=== PATIENT | female | born 1975 | race African-American/Black ===

== ENCOUNTER 2019-08-05 01:19 | Emergency (ER) | payer MEDICAID ==
[~2019-08-05] VITALS: Ht 167.6 cm; Wt 73.0 kg
[~2019-08-05 01:19] MED LIST: AMLO10TA80 MT; ASPI-1393 MT; HYDR200T35 PO; LISI-604 MT; LOSA25TA26 MT
[2019-08-05] MEDS ORDERED: ONDANSETRON HCL 4MG/2ML INJ IV STA (02:15)
[2019-08-05] MEDS ORDERED: VANCOMYCIN 1 G PREMIX 200 ML IV SCH (02:15)
[2019-08-05] MEDS ORDERED: MORPHINE SULFATE 4 MG/ML CPJ (NOT FOR IM USE) IV STA (02:15)
[2019-08-05] MEDS ORDERED: SODIUM CHLORIDE 0.9% 1000ML BAG (SEPSIS BOLUS) IV ONE (02:15)
[2019-08-05] MEDS ORDERED: PIPERACILLIN/TAZOBACTAM 3.375GM/50ML PREMIX IV SCH (02:15)
[2019-08-05 03:12] LABS: BASOPHILS % 0.3 % (0.0-2.0); EOSINOPHILS % 0.1 % (0.0-5.0); HEMATOCRIT. 31.8 % (36.0-48.0); HEMOGLOBIN. 10.1 g/dL (12.0-16.0); LYMPHOCYTES % 7.4 % (20.0-50.0); MEAN CORPUSCULAR HEMOGLOBIN 27.9 pg (28.0-32.0); MEAN CORPUSCULAR VOLUME 87.6 fL (81.0-99.0); MEAN PLATELET VOLUME 7.7 fl (7.4-10.4); MONOCYTES % 3.6 % (2.0-8.0); NEUTROPHILS % 88.6 % (40.0-76.0); PLATELET 453 x1000/uL (130-400); RED BLOOD CELL COUNT 3.63 mill/uL (4.2-5.4); RED CELL DISTRIBUTION WIDTH 19.4 % (11.6-14.6)
[2019-08-05 03:14] LABS: CHLORIDE 101 mEq/L (98-107)
[2019-08-05 03:15] LABS: PROTHROMBIN TIME 10.5 sec (9.6-11.0)
[2019-08-05 03:19] LABS: ETHANOL BLOOD < 10 mg/dL
[2019-08-05] MEDS ORDERED: DIPHENHYDRAMINE 50MG/ML VIAL IV ONE (03:30)
[2019-08-05 04:30] VITALS: BP 143/96
[2019-08-05 05:10] LABS: CLARITY URINE CLEAR (CLEAR); COLOR URINE YELLOW (YELLOW); KETONES URINE NEGATIVE (NEGATIVE); LEUKOCYTE ESTERASE URINE TRACE (NEGATIVE); NITRITE URINE POSITIVE (NEGATIVE); OCCULT BLOOD URINE TRACE (NEGATIVE); PH URINE 6.5 (4.5-8.0); PROTEIN URINE NEGATIVE (NEGATIVE); SPECIFIC GRAVITY URINE 1.016 (1.005-1.030)
[2019-08-05 05:21] LABS: *AMPHETAMINES SCREEN URINE NEGATIVE (NEGATIVE); *BARBITURATES SCREEN URINE NEGATIVE (NEGATIVE); CANNABINOID URINE SCREEN NEGATIVE (NEGATIVE); PHENCYCLIDINE URINE SCREEN NEGATIVE (NEGATIVE)
[2019-08-05 05:22] LABS: *BENZODIAZEPINES SCREEN URINE NEGATIVE (NEGATIVE); *COCAINE SCREEN URINE NEGATIVE (NEGATIVE); METHADONE URINE SCREEN NEGATIVE (NEGATIVE)
[2019-08-05 05:24] LABS: OPIATES URINE SCREEN PRESUMTIVE POSITIVE (NEGATIVE)
== END 2019-08-05 04:45 | disposition short-term general hospital (02) ==
LOC: ER 01:19
DX: M65.841 Other synovitis and tenosynovitis, right hand (principal); M32.9 Systemic lupus erythematosus, unspecified; Z98.890 Other specified postprocedural states; Z88.0 Allergy status to penicillin; Z88.2 Allergy status to sulfonamides; Z88.8 Allergy status to other drugs, medicaments and biological substances; Z79.899 Other long term (current) drug therapy; Z79.82 Long term (current) use of aspirin
CPT/HCPCS: 36415; 80053; 80305; 80320; 81003; 83605; 84145; 84484; 85025; 85610; 87040; 87077; 87086; 87186; 93005; 96365; 96366; 96375; 99285; J1200; J2270; J2405; J2543; J3370; J7030; Z7610; A4315; G0480

== ENCOUNTER 2021-03-21 01:41 | Inpatient (IN) | payer MEDICAID ==
[~2021-03-21] VITALS: Ht 162.6 cm; Wt 53.5 kg
[2021-03-21] VITALS (16 sets, daily range): BP systolic 91–130; BP diastolic 57–75
[~2021-03-21 01:41] MED LIST changes: -ASPI-1393 MT; +ASPI-1497 MT; -LISI-604 MT; +LISI20TA31 MT
[2021-03-21] MEDS ORDERED: DIATR MEGLU/DIATRIZOATE SOLN 30ML ONE (03:42)
[2021-03-21] MEDS ORDERED: SODIUM CHLORIDE 0.9% 1,000 ML IV ONE (04:45)
[2021-03-21] MEDS ORDERED: CEFTRIAXONE 1 G PREMIX 50 ML IV NR (05:00)
[2021-03-21 05:37] LABS: BASOPHILS % 0.4 % (0.0-2.0); EOSINOPHILS % 2.2 % (0.0-5.0); HEMOGLOBIN. 7.1 g/dL (12.0-16.0); LYMPHOCYTES % 21.3 % (20.0-50.0); MEAN CORPUSCULAR HEMOGLOBIN 26.6 pg (28.0-32.0); MEAN CORPUSCULAR VOLUME 89.6 fL (81.0-99.0); MEAN PLATELET VOLUME 6.8 fl (7.4-10.4); MONOCYTES % 2.4 % (2.0-8.0); NEUTROPHILS % 73.7 % (40.0-76.0); PLATELET 458 x1000/uL (130-400); RED BLOOD CELL COUNT 2.68 mill/uL (4.2-5.4)
[2021-03-21 05:45] LABS: CHLORIDE 103 mEq/L (98-107)
[2021-03-21 07:34] LABS: CLARITY URINE TURBID (CLEAR); COLOR URINE BROWN (YELLOW)
[2021-03-21 07:36] LABS: KETONES URINE NEGATIVE (NEGATIVE); PROTEIN URINE 3+ (NEGATIVE)
[2021-03-21 07:37] LABS: LEUKOCYTE ESTERASE URINE 3+ (NEGATIVE); NITRITE URINE NEGATIVE (NEGATIVE); OCCULT BLOOD URINE 3+ (NEGATIVE)
[2021-03-21] MEDS ORDERED: CLONIDINE 0.1MG TABLET PO PRN (09:00)
[2021-03-21] MEDS ORDERED: ONDANSETRON HCL 4MG/2ML INJ IV PRN (09:00)
[2021-03-21] MEDS ORDERED: SODIUM CHLORIDE 0.9% 500 ML IV NR (09:00)
[2021-03-21] MEDS ORDERED: IPRATROPIUM/ALBUTEROL 0.5-3(2.5)MG/3ML NEB HHN PRN (09:00)
[2021-03-21] MEDS ORDERED: ACETAMINOPHEN 650MG/20.3ML UDC GT PRN (09:00)
[2021-03-21] MEDS ORDERED: LEVOFLOXACIN 500MG PREMIX 100 ML IV NR (11:00)
[2021-03-21] MEDS ORDERED: NOREPINEPHRINE 32 MG in DEXT 5% WATER 218 ML IV PRN (13:30)
[2021-03-21] MEDS ORDERED: IBUP-2029 PO (19:40)
[2021-03-21] MEDS: MORPHINE SULFATE 2 MG/ML CPJ (NOT FOR IM USE) IV PRN (23:22)
[2021-03-21] MEDS ORDERED: NALOXONE HCL 0.4MG/ML VIAL IV PRN (23:30)
[2021-03-22] VITALS (46 sets, daily range): BP systolic 91–109; BP diastolic 46–73
[2021-03-22] MEDS: MORPHINE SULFATE 2 MG/ML CPJ (NOT FOR IM USE) IV PRN ×2 (03:04→10:57)
[2021-03-22 05:35] LABS: CHLORIDE 107 mEq/L (98-107)
[2021-03-22 05:37] LABS: BASOPHILS % 0.3 % (0.0-2.0); EOSINOPHILS % 3.4 % (0.0-5.0); LYMPHOCYTES % 21.1 % (20.0-50.0); MEAN CORPUSCULAR HEMOGLOBIN 26.8 pg (28.0-32.0); MEAN CORPUSCULAR VOLUME 86.6 fL (81.0-99.0); MEAN PLATELET VOLUME 6.8 fl (7.4-10.4); MONOCYTES % 2.5 % (2.0-8.0); NEUTROPHILS % 72.7 % (40.0-76.0); PLATELET 472 x1000/uL (130-400); RED BLOOD CELL COUNT 2.54 mill/uL (4.2-5.4)
[2021-03-22 05:43] LABS: LDL CHOLESTEROL 69 mg/dL (5-100)
[2021-03-22 05:44] LABS: HDL CHOLESTEROL 25 mg/dL (40-59)
[2021-03-22 07:00] LABS: HEMOGLOBIN. 6.8 g/dL (12.0-16.0)
[2021-03-22] MEDS ORDERED: LEVOFLOXACIN 250MG PREMIX 50 ML IV SCH (09:00)
[2021-03-22] MEDS: LEVOFLOXACIN 500MG PREMIX 100 ML IV SCH (12:29)
[2021-03-22] MEDS: HYDROCODONE/ACETAMINOPHEN 5/325MG TABLET PO PRN (15:51)
[2021-03-22 21:33] LABS: HEMATOCRIT 25.4 % (36.0-48.0); HEMOGLOBIN 7.9 g/dL (12.0-16.0); MEAN CORPUSCULAR HEMOGLOBIN 27.4 pg (28.0-32.0); MEAN CORPUSCULAR VOLUME 87.6 fL (81.0-99.0); PLATELET 463 x1000/uL (130-400); RED CELL DISTRIBUTION WIDTH 14.3 % (11.6-14.6)
[2021-03-23] VITALS (16 sets, daily range): BP systolic 89–119; BP diastolic 57–76
[2021-03-23] MEDS: HYDROCODONE/ACETAMINOPHEN 5/325MG TABLET PO PRN ×2 (01:30→17:55)
[2021-03-23 05:39] LABS: CHLORIDE 104 mEq/L (98-107)
[2021-03-23 05:46] LABS: BASOPHILS % 0.3 % (0.0-2.0); EOSINOPHILS % 3.2 % (0.0-5.0); HEMATOCRIT. 24.6 % (36.0-48.0); HEMOGLOBIN. 7.8 g/dL (12.0-16.0); LYMPHOCYTES % 23.6 % (20.0-50.0); MEAN CORPUSCULAR HEMOGLOBIN 27.8 pg (28.0-32.0); MEAN CORPUSCULAR VOLUME 87.7 fL (81.0-99.0); MEAN PLATELET VOLUME 6.9 fl (7.4-10.4); MONOCYTES % 3.2 % (2.0-8.0); NEUTROPHILS % 69.7 % (40.0-76.0); PLATELET 481 x1000/uL (130-400); RED BLOOD CELL COUNT 2.81 mill/uL (4.2-5.4); RED CELL DISTRIBUTION WIDTH 14.3 % (11.6-14.6)
[2021-03-23] MEDS: DIPHENHYDRAMINE 50MG/ML VIAL IV PRN (06:38)
[2021-03-23 08:45] LABS: TOTAL IRON BINDING CAPACITY 122 ug/dL (250-450)
[2021-03-23 09:22] LABS: FOLIC ACID (FOLATE) SERUM 4.5 ng/mL (>5.38)
[2021-03-23 10:11] LABS: CLARITY URINE CLOUDY (CLEAR); COLOR URINE YELLOW (YELLOW); KETONES URINE NEGATIVE (NEGATIVE); LEUKOCYTE ESTERASE URINE 3+ (NEGATIVE); NITRITE URINE NEGATIVE (NEGATIVE); OCCULT BLOOD URINE 3+ (NEGATIVE); PROTEIN URINE 1+ (NEGATIVE); SPECIFIC GRAVITY URINE 1.013 (1.005-1.030); UROBILINOGEN URINE 0.2 E.U./dL (0.2-1.0)
[2021-03-23] MEDS ORDERED: LIDOCAINE HCL 2%/EPINEPHRINE 1:100,000 20 ML VIAL INFIL SCH (13:00)
[2021-03-23] MEDS ORDERED: LIDOCAINE HCL 2%/EPINEPHRINE/PF 10 ML VIAL INFIL SCH (13:00)
[2021-03-23] MEDS: LEVOFLOXACIN 500MG PREMIX 100 ML IV SCH (13:11)
[2021-03-24] VITALS: BP 93/64
[2021-03-24] MEDS: DIPHENHYDRAMINE 50MG/ML VIAL IV PRN (00:18)
[2021-03-24] MEDS: HYDROCODONE/ACETAMINOPHEN 5/325MG TABLET PO PRN ×2 (00:19→13:40)
[2021-03-24 04:13] VITALS: BP 96/50
[2021-03-24 06:29] LABS: BASOPHILS % 0.3 % (0.0-2.0); EOSINOPHILS % 3.6 % (0.0-5.0); HEMATOCRIT. 25.5 % (36.0-48.0); LYMPHOCYTES % 29.4 % (20.0-50.0); MEAN CORPUSCULAR HEMOGLOBIN 27.4 pg (28.0-32.0); MEAN CORPUSCULAR VOLUME 87.3 fL (81.0-99.0); MEAN PLATELET VOLUME 6.7 fl (7.4-10.4); MONOCYTES % 2.7 % (2.0-8.0); PLATELET 472 x1000/uL (130-400); RED BLOOD CELL COUNT 2.92 mill/uL (4.2-5.4); RED CELL DISTRIBUTION WIDTH 14.6 % (11.6-14.6)
[2021-03-24 06:41] LABS: CHLORIDE 99 mEq/L (98-107)
[2021-03-24 08:00] VITALS: BP 97/67
[2021-03-24] MEDS ORDERED: ASCORBIC ACID 500 MG TABLET PO SCH (09:00)
[2021-03-24] MEDS ORDERED: ZINC SULFATE 220 MG ( 50 ) CAPSULE PO SCH (09:00)
[2021-03-24] MEDS ORDERED: FOLIC ACID 1MG TABLET PO SCH (09:45)
[2021-03-24] MEDS ORDERED: SODIUM CHLORIDE 0.9% 1,000 ML IV SCH (09:45)
[2021-03-24] MEDS ORDERED: LEVOFLOXACIN 500MG TABLET PO SCH (11:00)
[2021-03-24] MEDS ORDERED: POLYETHYLENE GLYCOL 3350 (17GM) 1 DOSE PACK PO SCH (11:15)
[2021-03-24] MEDS ORDERED: LEVO500T89 MT (11:32)
[2021-03-24] MEDS ORDERED: ZINC220C2 PO (11:32)
[2021-03-24] MEDS ORDERED: ASCO500T20 PO (11:32)
[2021-03-24] MEDS ORDERED: FOLI-43 PO (11:32)
[2021-03-24 12:00] VITALS: BP 96/69
[2021-03-24 14:54] VITALS: BP 93/60
== END 2021-03-24 17:00 | disposition home health service (06) | DRG 710 ==
LOC: ER 01:41 → MICUSO 05:45 → EDBEDREQ 06:07 → EDBEDREQTM 06:07 → MICUSO 14:34 → 5EST 03-23 06:14
PROVIDERS: ADMIT Internal Medicine; ATTEND Internal Medicine
PROC: 30233N1 Transfusion of Nonautologous Red Blood Cells into Peripheral Vein, Percutaneous Approach (ICD-10-PCS; 2021-03-22)
PROC: 0QB10ZZ Excision of Sacrum, Open Approach (ICD-10-PCS; principal; 2021-03-24)
PROC: 0JBM0ZZ Excision of Left Upper Leg Subcutaneous Tissue and Fascia, Open Approach (ICD-10-PCS; 2021-03-24)
PROC: 0QBS0ZZ Excision of Coccyx, Open Approach (ICD-10-PCS; 2021-03-24)
DX: A41.9 Sepsis, unspecified organism (principal); R65.21 Severe sepsis with septic shock; L89.154 Pressure ulcer of sacral region, stage 4; E43 Unspecified severe protein-calorie malnutrition; L89.223 Pressure ulcer of left hip, stage 3; D50.9 Iron deficiency anemia, unspecified; N39.0 Urinary tract infection, site not specified; I51.7 Cardiomegaly; Y73.8 Miscellaneous gastroenterology and urology devices associated with adverse incidents, not elsewhere classified; S80.212A Abrasion, left knee, initial encounter; X58.XXXA Exposure to other specified factors, initial encounter; K94.23 Gastrostomy malfunction; Z74.01 Bed confinement status; Z82.49 Family history of ischemic heart disease and other diseases of the circulatory system; Z88.0 Allergy status to penicillin; Z88.8 Allergy status to other drugs, medicaments and biological substances; Z79.899 Other long term (current) drug therapy; Y92.89 Other specified places as the place of occurrence of the external cause; Y93.89 Activity, other specified; Y99.8 Other external cause status; Z79.82 Long term (current) use of aspirin; Z88.2 Allergy status to sulfonamides
CPT/HCPCS: 36415; 71045; 74018; 80048; 80053; 80061; 81003; 82040; 82607; 82728; 82746; 83540; 83550; 83605; 84134; 84443; 85025; 85027; 85044; 86850; 86900; 86920; 93970; 99291; A6261; J0696; J1200; J1956; J2270; J3490; J7030; P9016; Q9963; A4315

== ENCOUNTER 2021-06-13 16:33 | Inpatient (IN) | payer MEDICAID ==
[~2021-06-13] VITALS: Ht 165.1 cm; Wt 47.6 kg
[~2021-06-13 16:33] MED LIST changes: -AMLO10TA80 MT; +ASCO500T20 PO; +FOLI-43 PO; +HYDR-4001 MT; -LISI20TA31 MT; -LOSA25TA26 MT; +OMEP40CA20 MT; +ZINC220C2 PO
[2021-06-13 17:54] LABS: BASOPHILS % 0.4 % (0.0-2.0); EOSINOPHILS % 1.6 % (0.0-5.0); HEMATOCRIT. 24.2 % (36.0-48.0); HEMOGLOBIN. 7.4 g/dL (12.0-16.0); LYMPHOCYTES % 27.4 % (20.0-50.0); MEAN CORPUSCULAR VOLUME 91.6 fL (81.0-99.0); MONOCYTES % 4.7 % (2.0-8.0); NEUTROPHILS % 65.9 % (40.0-76.0); PLATELET 369 x1000/uL (130-400); RED BLOOD CELL COUNT 2.64 mill/uL (4.2-5.4); RED CELL DISTRIBUTION WIDTH 15.2 % (11.6-14.6)
[2021-06-13 18:01] LABS: CHLORIDE 110 mEq/L (98-107)
[2021-06-13] MEDS ORDERED: IPRATROPIUM BROMIDE (0.02%) 0.5MG/2.5ML NEB HHN STA (18:04)
[2021-06-13] MEDS ORDERED: ALBUTEROL (0.083%) 2.5MG/3ML NEB HHN STA (18:04)
[2021-06-13] MEDS ORDERED: METHYLPREDNISOLONE SOD SUCC 125 MG/2 ML VIAL IV NR (18:04)
[2021-06-13 18:05] LABS: ETHANOL BLOOD < 10 mg/dL
[2021-06-13 20:49] LABS: INR 1.3; PROTHROMBIN TIME 13.5 sec (9.6-11.0)
[2021-06-13 20:51] LABS: CLARITY URINE CLOUDY (CLEAR); KETONES URINE NEGATIVE (NEGATIVE); LEUKOCYTE ESTERASE URINE 3+ (NEGATIVE); NITRITE URINE NEGATIVE (NEGATIVE); OCCULT BLOOD URINE 3+ (NEGATIVE); PROTEIN URINE 2+ (NEGATIVE); SPECIFIC GRAVITY URINE 1.012 (1.005-1.030); UROBILINOGEN URINE 0.2 E.U./dL (0.2-1.0)
[2021-06-13 21:01] LABS: COLOR URINE BLOODY (YELLOW)
[2021-06-13 21:18] LABS: *AMPHETAMINES SCREEN URINE NEGATIVE (NEGATIVE); *BARBITURATES SCREEN URINE NEGATIVE (NEGATIVE); *BENZODIAZEPINES SCREEN URINE NEGATIVE (NEGATIVE); *COCAINE SCREEN URINE NEGATIVE (NEGATIVE); CANNABINOID URINE SCREEN NEGATIVE (NEGATIVE); METHADONE URINE SCREEN NEGATIVE (NEGATIVE); OPIATES URINE SCREEN NEGATIVE (NEGATIVE); PHENCYCLIDINE URINE SCREEN NEGATIVE (NEGATIVE)
[2021-06-14 10:00] VITALS: BP 99/66
[2021-06-14] MEDS ORDERED: IBUP-2029 PO (10:56)
[2021-06-14] MEDS ORDERED: MULT-1146 MT (10:56)
[2021-06-14 12:00] VITALS: BP 99/69
[2021-06-14] MEDS ORDERED: ONDANSETRON HCL 4MG/2ML INJ IV PRN (14:15)
[2021-06-14] MEDS ORDERED: DOCUSATE SODIUM 100MG CAPSULE PO PRN (14:15)
[2021-06-14] MEDS ORDERED: ACETAMINOPHEN 325MG TABLET PO PRN (14:15)
[2021-06-14] MEDS ORDERED: CLONIDINE 0.1MG TABLET PO PRN (14:15)
[2021-06-14] MEDS ORDERED: MAGNESIUM/ALUMINUM HYDROXIDE/SIMETHICONE 30ML UDC PO PRN (14:15)
[2021-06-14] MEDS ORDERED: HYDROCODONE/ACETAMINOPHEN 5/325MG TABLET PO PRN (14:15)
[2021-06-14 16:00] VITALS: BP 101/67
[2021-06-14] MEDS: HYDROXYCHLOROQUINE SULFATE 200MG TABLET PO SCH (18:44)
[2021-06-14] MEDS: FOLIC ACID 1MG TABLET PO SCH (18:45)
[2021-06-14] MEDS: OMEPRAZOLE 20MG CAPSULE EXTENDED RELEASE PO SCH (18:45)
[2021-06-14] MEDS: ZINC SULFATE 220 MG ( 50 ) CAPSULE PO SCH (18:46)
[2021-06-14] MEDS: MULTIVITAMINS,THER W-MINERALS TABLET PO SCH (18:46)
[2021-06-14] MEDS: ASCORBIC ACID 500 MG TABLET PO SCH (18:47)
[2021-06-14 20:00] VITALS: BP 92/62
[2021-06-15] VITALS (10 sets, daily range): BP systolic 93–107; BP diastolic 61–71
[2021-06-15] MEDS: OMEPRAZOLE 20MG CAPSULE EXTENDED RELEASE PO SCH (06:46)
[2021-06-15 08:21] LABS: CHLORIDE 111 mEq/L (98-107)
[2021-06-15 08:24] LABS: BASOPHILS % 0.4 % (0.0-2.0); EOSINOPHILS % 1.1 % (0.0-5.0); HEMATOCRIT. 22.5 % (36.0-48.0); LYMPHOCYTES % 38.1 % (20.0-50.0); MONOCYTES % 6.3 % (2.0-8.0); NEUTROPHILS % 54.1 % (40.0-76.0); PLATELET 221 x1000/uL (130-400); RED BLOOD CELL COUNT 2.42 mill/uL (4.2-5.4)
[2021-06-15 08:26] LABS: HEMOGLOBIN. 6.8 g/dL (12.0-16.0)
[2021-06-15] MEDS: HYDROXYCHLOROQUINE SULFATE 200MG TABLET PO SCH (08:52)
[2021-06-15] MEDS: FOLIC ACID 1MG TABLET PO SCH (08:53)
[2021-06-15] MEDS: SODIUM CHLORIDE 0.9% 1,000 ML IV SCH (08:53)
[2021-06-15] MEDS: MULTIVITAMINS,THER W-MINERALS TABLET PO SCH (08:53)
[2021-06-15] MEDS: ASCORBIC ACID 500 MG TABLET PO SCH (08:53)
[2021-06-15] MEDS: ZINC SULFATE 220 MG ( 50 ) CAPSULE PO SCH (08:53)
[2021-06-15] MEDS ORDERED: MAGNESIUM 2 G PREMIX 50 ML IV NR (11:00)
[2021-06-15] MEDS: LEVOFLOXACIN 500MG TABLET PO SCH (12:31)
[2021-06-15] MEDS ORDERED: NALOXONE HCL 0.4MG/ML VIAL IV PRN (18:00)
[2021-06-15 21:15] LABS: HEMATOCRIT 24.4 % (36.0-48.0); HEMOGLOBIN 7.6 g/dL (12.0-16.0)
[2021-06-16] VITALS: BP 113/69
[2021-06-16 04:00] VITALS: BP 116/74
[2021-06-16] MEDS: SODIUM CHLORIDE 0.9% 1,000 ML IV SCH (06:15)
[2021-06-16] MEDS: OMEPRAZOLE 20MG CAPSULE EXTENDED RELEASE PO SCH (06:20)
[2021-06-16 07:20] LABS: CHLORIDE 108 mEq/L (98-107)
[2021-06-16 07:30] LABS: BASOPHILS % 0.4 % (0.0-2.0); EOSINOPHILS % 1.4 % (0.0-5.0); HEMATOCRIT. 24.5 % (36.0-48.0); LYMPHOCYTES % 28.9 % (20.0-50.0); MEAN CORPUSCULAR HEMOGLOBIN 28.7 pg (28.0-32.0); MEAN CORPUSCULAR VOLUME 88.3 fL (81.0-99.0); MEAN PLATELET VOLUME 7.9 fl (7.4-10.4); MONOCYTES % 4.6 % (2.0-8.0); NEUTROPHILS % 64.7 % (40.0-76.0); PLATELET 244 x1000/uL (130-400); RED BLOOD CELL COUNT 2.77 mill/uL (4.2-5.4); RED CELL DISTRIBUTION WIDTH 14.5 % (11.6-14.6)
[2021-06-16 08:00] VITALS: BP 116/68
[2021-06-16] MEDS: MULTIVITAMINS,THER W-MINERALS TABLET PO SCH (09:00)
[2021-06-16] MEDS: ASCORBIC ACID 500 MG TABLET PO SCH (09:28)
[2021-06-16] MEDS: ZINC SULFATE 220 MG ( 50 ) CAPSULE PO SCH (09:28)
[2021-06-16] MEDS: HYDROXYCHLOROQUINE SULFATE 200MG TABLET PO SCH (09:28)
[2021-06-16] MEDS: FOLIC ACID 1MG TABLET PO SCH (09:28)
[2021-06-16] MEDS ORDERED: LEVO500T89 PO (09:35)
[2021-06-16] MEDS: LEVOFLOXACIN 500MG TABLET PO SCH (11:30)
[2021-06-16 11:51] VITALS: BP 110/70
[2021-06-16 12:00] VITALS: BP 110/70
[2021-06-16] MEDS ORDERED: CEFTRIAXONE SODIUM 1 G/VIAL IV ONE (13:15)
[2021-06-16] MEDS ORDERED: CEFTRIAXONE 1,000 MG in DEXTROSE 5% WATER 50 ML IV SCH (15:00)
[2021-06-16 16:00] VITALS: BP 109/76
== END 2021-06-16 16:41 | disposition home health service (06) | DRG 466 ==
LOC: ER 16:33 → MICUSO 21:30 → EDBEDREQTM 21:44 → EDBEDREQ 21:44 → 6EST 06-14 07:42
PROVIDERS: ADMIT Internal Medicine; ATTEND Internal Medicine
PROC: 30233N1 Transfusion of Nonautologous Red Blood Cells into Peripheral Vein, Percutaneous Approach (ICD-10-PCS; principal; 2021-06-15)
DX: T83.021A Displacement of indwelling urethral catheter, initial encounter (principal); E43 Unspecified severe protein-calorie malnutrition; L89.154 Pressure ulcer of sacral region, stage 4; N13.6 Pyonephrosis; L89.893 Pressure ulcer of other site, stage 3; E83.41 Hypermagnesemia; D64.9 Anemia, unspecified; M06.9 Rheumatoid arthritis, unspecified; R31.0 Gross hematuria; N73.9 Female pelvic inflammatory disease, unspecified; Y83.8 Other surgical procedures as the cause of abnormal reaction of the patient, or of later complication, without mention of misadventure at the time of the procedure; Z74.01 Bed confinement status; Z88.0 Allergy status to penicillin; Z88.2 Allergy status to sulfonamides; Z88.8 Allergy status to other drugs, medicaments and biological substances; Z79.899 Other long term (current) drug therapy; Z68.1 Body mass index [BMI] 19.9 or less, adult; Y92.89 Other specified places as the place of occurrence of the external cause
CPT/HCPCS: 36415; 71045; 76770; 80048; 80053; 80076; 80305; 80320; 81003; 82040; 82962; 83735; 83880; 84100; 84134; 84484; 85014; 85018; 85025; 86850; 86900; 86920; 87077; 87186; 93005; 94640; 99285; J0696; J2930; J3475; J7030; J7040; J7060; P9016; G0480

== ENCOUNTER 2022-03-04 03:10 | Inpatient (IN) | payer MEDICAID ==
[~2022-03-04] VITALS: Ht 167.6 cm; Wt 60.3 kg
[~2022-03-04 03:10] MED LIST changes: +IBUP-2029 PO; +LEVO500T90 PO; +MULT-1146 MT
[2022-03-04] MEDS ORDERED: SODIUM CHLORIDE 0.9% 1000ML BAG (SEPSIS BOLUS) IV ONE (09:00)
[2022-03-04] MEDS ORDERED: LEVOFLOXACIN 750MG PREMIX 150 ML IV ONE (09:00)
[2022-03-04] MEDS ORDERED: METRONIDAZOLE 500 MG PREMIX 100 ML IV ONE (09:00)
[2022-03-04 10:00] LABS: BASOPHILS % 0.4 % (0.0-2.0); EOSINOPHILS % 1.7 % (0.0-5.0); HEMATOCRIT. 28.7 % (36.0-48.0); HEMOGLOBIN. 8.7 g/dL (12.0-16.0); LYMPHOCYTES % 21.4 % (20.0-50.0); MEAN CORPUSCULAR HEMOGLOBIN 28.3 pg (28.0-32.0); MEAN CORPUSCULAR VOLUME 93.4 fL (81.0-99.0); MEAN PLATELET VOLUME 7.2 fl (7.4-10.4); MONOCYTES % 3.1 % (2.0-8.0); NEUTROPHILS % 73.4 % (40.0-76.0); PLATELET 316 x1000/uL (130-400); RED BLOOD CELL COUNT 3.07 mill/uL (4.2-5.4); RED CELL DISTRIBUTION WIDTH 14.2 % (11.6-14.6)
[2022-03-04 10:06] LABS: PROTHROMBIN TIME 11.1 sec (9.6-11.0)
[2022-03-04 10:09] LABS: CHLORIDE 95 mEq/L (98-107)
[2022-03-04 12:08] LABS: CLARITY URINE TURBID (CLEAR); COLOR URINE DARK YELLOW (YELLOW); KETONES URINE NEGATIVE (NEGATIVE); LEUKOCYTE ESTERASE URINE 3+ (NEGATIVE); NITRITE URINE POSITIVE (NEGATIVE); OCCULT BLOOD URINE 1+ (NEGATIVE); PROTEIN URINE 1+ (NEGATIVE); SPECIFIC GRAVITY URINE 1.008 (1.005-1.030); UROBILINOGEN URINE 0.2 E.U./dL (0.2-1.0)
[2022-03-04] MEDS ORDERED: ONDANSETRON HCL 4MG/2ML INJ IV PRN (14:30)
[2022-03-04] MEDS ORDERED: KETOROLAC 30MG/ML VIAL IV PRN (14:30)
[2022-03-04 17:26] VITALS: BP 101/67
[2022-03-04 17:30] VITALS: BP 92/60
[2022-03-04 20:00] VITALS: BP 97/59
[2022-03-05] VITALS: BP 99/69
[2022-03-05 04:00] VITALS: BP 92/57
[2022-03-05 08:00] VITALS: BP 95/49
[2022-03-05] MEDS: LEVOFLOXACIN 500MG PREMIX 100 ML IV SCH (11:49)
[2022-03-05 12:00] VITALS: BP 108/71
[2022-03-05] MEDS: DIPHENHYDRAMINE 25MG CAPSULE PO PRN (14:39)
[2022-03-05 16:00] VITALS: BP 110/68
[2022-03-05 18:18] LABS: BASOPHILS % 0.2 % (0.0-2.0); EOSINOPHILS % 1.8 % (0.0-5.0); HEMATOCRIT. 25.8 % (36.0-48.0); HEMOGLOBIN. 8.1 g/dL (12.0-16.0); MEAN CORPUSCULAR HEMOGLOBIN 28.2 pg (28.0-32.0); MEAN CORPUSCULAR VOLUME 90.3 fL (81.0-99.0); MEAN PLATELET VOLUME 7.8 fl (7.4-10.4); MONOCYTES % 5.7 % (2.0-8.0); NEUTROPHILS % 71.3 % (40.0-76.0); PLATELET 284 x1000/uL (130-400); RED BLOOD CELL COUNT 2.85 mill/uL (4.2-5.4)
[2022-03-05 18:20] LABS: CHLORIDE 97 mEq/L (98-107)
[2022-03-05 20:00] VITALS: BP 111/73
[2022-03-06] VITALS: BP 114/78
[2022-03-06 04:00] VITALS: BP 118/76
[2022-03-06 08:00] VITALS: BP 107/68
[2022-03-06 12:00] VITALS: BP 111/66
[2022-03-06] MEDS: LEVOFLOXACIN 500MG PREMIX 100 ML IV SCH (12:38)
[2022-03-06 16:00] VITALS: BP 135/77
[2022-03-06] MEDS: DIPHENHYDRAMINE 25MG CAPSULE PO PRN (21:57)
[2022-03-07] VITALS: BP 107/74
[2022-03-07 04:00] VITALS: BP 111/67
[2022-03-07 12:00] VITALS: BP 104/67
[2022-03-07] MEDS ORDERED: LEVOFLOXACIN 500MG PREMIX 100 ML IV SCH (12:30)
[2022-03-07 16:00] VITALS: BP 102/62
[2022-03-07 20:00] VITALS: BP 106/67
[2022-03-07] MEDS ORDERED: LEVO500T90 MT (20:12)
[2022-03-08] VITALS: BP 104/68
[2022-03-08 04:00] VITALS: BP 111/60
[2022-03-08 08:09] VITALS: BP 115/71
[2022-03-08] MEDS ORDERED: LEVOFLOXACIN 500MG TABLET PO SCH (11:00)
[2022-03-08 11:01] VITALS: BP 115/71
[2022-03-08 12:00] VITALS: BP 106/71
== END 2022-03-08 21:14 | DRG 951 ==
LOC: ER 03:10 → 7WST 13:45 → EDBEDREQSVC 13:48 → EDBEDREQTM 13:48 → EDBEDREQ 13:48 → ENRESERV 15:22 → ER 16:46 → 7WST 03-08 19:57
PROVIDERS: ADMIT Internal Medicine; ATTEND Internal Medicine
PROC: 0KBP0ZZ Excision of Left Hip Muscle, Open Approach (ICD-10-PCS; principal; 2022-03-06)
PROC: 0KBN0ZZ Excision of Right Hip Muscle, Open Approach (ICD-10-PCS; 2022-03-06)
PROC: 0KBP0ZZ Excision of Left Hip Muscle, Open Approach (ICD-10-PCS; 2022-03-06)
DX: N39.0 Urinary tract infection, site not specified (principal); L89.154 Pressure ulcer of sacral region, stage 4; E43 Unspecified severe protein-calorie malnutrition; L89.324 Pressure ulcer of left buttock, stage 4; M32.9 Systemic lupus erythematosus, unspecified; E87.8 Other disorders of electrolyte and fluid balance, not elsewhere classified; M06.9 Rheumatoid arthritis, unspecified; E87.1 Hypo-osmolality and hyponatremia; Z74.01 Bed confinement status; Z82.49 Family history of ischemic heart disease and other diseases of the circulatory system; D64.9 Anemia, unspecified; Z68.21 Body mass index [BMI] 21.0-21.9, adult; Z88.0 Allergy status to penicillin; Z88.2 Allergy status to sulfonamides; Z88.8 Allergy status to other drugs, medicaments and biological substances; Z79.899 Other long term (current) drug therapy; Z79.82 Long term (current) use of aspirin; Z96.0 Presence of urogenital implants
CPT/HCPCS: 36415; 71045; 74176; 80048; 80053; 81003; 82040; 83605; 84134; 84145; 84484; 85025; 85384; 86850; 86900; 93005; 93970; 99285; C1893; J1885; J1956; J3490; J7030; Q0163

== ENCOUNTER 2022-06-11 03:01 | Inpatient (IN) | payer MEDICAID ==
[~2022-06-11] VITALS: Ht 162.6 cm; Wt 47.6 kg
[~2022-06-11 03:01] MED LIST changes: +LEVO-65 MT; +LEVO-65 PO; -LEVO500T90 PO
[2022-06-11] MEDS ORDERED: SODIUM CHLORIDE 0.9% 1,000 ML IV ONE (04:15)
[2022-06-11 05:27] LABS: BASOPHILS % 0.3 % (0.0-2.0); HEMATOCRIT. 30.9 % (36.0-48.0); HEMOGLOBIN. 9.6 g/dL (12.0-16.0); LYMPHOCYTES % 25.3 % (20.0-50.0); MEAN CORPUSCULAR VOLUME 93.5 fL (81.0-99.0); MEAN PLATELET VOLUME 7.3 fl (7.4-10.4); NEUTROPHILS % 66.4 % (40.0-76.0); PLATELET 373 x1000/uL (130-400); RED BLOOD CELL COUNT 3.31 mill/uL (4.2-5.4); RED CELL DISTRIBUTION WIDTH 14.1 % (11.6-14.6)
[2022-06-11] MEDS ORDERED: LEVOFLOXACIN 750MG PREMIX 150 ML IV ONE (05:30)
[2022-06-11 05:44] LABS: CHLORIDE 95 mEq/L (98-107)
[2022-06-11 05:50] LABS: HCG SCREEN NEGATIVE
[2022-06-11 05:50] LABS: CLARITY URINE TURBID (CLEAR); COLOR URINE RED (YELLOW); KETONES URINE NEGATIVE (NEGATIVE); LEUKOCYTE ESTERASE URINE 3+ (NEGATIVE); NITRITE URINE POSITIVE (NEGATIVE); OCCULT BLOOD URINE 3+ (NEGATIVE); PH URINE >=9.0 (4.5-8.0); PROTEIN URINE 3+ (NEGATIVE); SPECIFIC GRAVITY URINE 1.015 (1.005-1.030)
[2022-06-11] MEDS ORDERED: ONDANSETRON HCL 4MG/2ML INJ IV PRN (10:00)
[2022-06-11] MEDS ORDERED: CLONIDINE 0.1MG TABLET PO PRN (10:00)
[2022-06-11] MEDS ORDERED: IPRATROPIUM/ALBUTEROL 0.5-3(2.5)MG/3ML NEB HHN PRN (10:00)
[2022-06-11] MEDS ORDERED: ACETAMINOPHEN 325MG TABLET PO PRN (10:00)
[2022-06-11 12:00] VITALS: BP 92/61
[2022-06-11 14:00] VITALS: BP 92/61
[2022-06-11 16:00] VITALS: BP 101/65
[2022-06-11 16:27] LABS: TOTAL IRON BINDING CAPACITY 193 ug/dL (250-450)
[2022-06-11] MEDS: CEFEPIME 2,000 MG in DEXT 5% WATER 100 ML IV SCH (19:53)
[2022-06-11 20:00] VITALS: BP 109/76
[2022-06-12] VITALS: BP 111/76
[2022-06-12 04:00] VITALS: BP 102/62
[2022-06-12] MEDS: CEFEPIME 2,000 MG in DEXT 5% WATER 100 ML IV SCH ×2 (06:34→17:56)
[2022-06-12 07:08] LABS: BASOPHILS % 0.4 % (0.0-2.0); EOSINOPHILS % 3.2 % (0.0-5.0); HEMATOCRIT. 28.3 % (36.0-48.0); HEMOGLOBIN. 8.9 g/dL (12.0-16.0); LYMPHOCYTES % 26.4 % (20.0-50.0); MEAN CORPUSCULAR HEMOGLOBIN 28.9 pg (28.0-32.0); MEAN CORPUSCULAR VOLUME 92.2 fL (81.0-99.0); MEAN PLATELET VOLUME 7.4 fl (7.4-10.4); MONOCYTES % 3.5 % (2.0-8.0); NEUTROPHILS % 66.5 % (40.0-76.0); PLATELET 346 x1000/uL (130-400); RED BLOOD CELL COUNT 3.07 mill/uL (4.2-5.4); RED CELL DISTRIBUTION WIDTH 13.7 % (11.6-14.6)
[2022-06-12 08:00] VITALS: BP 99/61
[2022-06-12 08:27] LABS: CHLORIDE 97 mEq/L (98-107)
[2022-06-12] MEDS ORDERED: LEVOFLOXACIN 500MG PREMIX 100 ML IV SCH (09:00)
[2022-06-12 12:05] VITALS: BP 90/59
[2022-06-12 16:00] VITALS: BP 102/59
[2022-06-12 20:00] VITALS: BP 101/61
[2022-06-12] MEDS: DIPHENHYDRAMINE 50MG/ML VIAL IV PRN (23:18)
[2022-06-13] VITALS: BP 107/70
[2022-06-13 04:00] VITALS: BP 105/66
[2022-06-13] MEDS: CEFEPIME 2,000 MG in DEXT 5% WATER 100 ML IV SCH ×2 (05:31→17:05)
[2022-06-13 08:00] VITALS: BP 126/68
[2022-06-13 11:03] LABS: BG BASE EXCESS 9.9 mmol/L (-2.0-2.0); BG CARBOXYHEMOGLOBIN 0.9 % (0.5-1.5); BG DEOXYHEMOGLOBIN 15.8 % (0.0-5.0); BG FRACTION INSPIRED OXYGEN 24; BG METHEMOGLOBIN 0.1 % (0.0-1.5); BG OXYHEMOGLOBIN 83.2 % (94.0-97.0); BG PCO2 94.6 mmHg (35.0-45.0); BG PH 7.244 (7.350-7.450); BG PO2 54.7 mmHg (75.0-100.0); BG SAMPLE SITE RIGHT RADIAL; BG TOTAL HEMOGLOBIN 10.6 g/dL (12.0-18.0); BG VENT MODE NASAL CANNULA
[2022-06-13] MEDS ORDERED: IPRATROPIUM/ALBUTEROL 0.5-3(2.5)MG/3ML NEB HHN PRN (11:15)
[2022-06-13 12:00] VITALS: BP 97/68
[2022-06-13 12:16] LABS: BG BASE EXCESS 7.6 mmol/L (-2.0-2.0); BG CARBOXYHEMOGLOBIN 0.6 % (0.5-1.5); BG DEOXYHEMOGLOBIN 9.5 % (0.0-5.0); BG FRACTION INSPIRED OXYGEN 24; BG HCO3 ACT 35.8 mmol/L (22.0-26.0); BG METHEMOGLOBIN 0.3 % (0.0-1.5); BG OXYGEN SATURATION 90.4 % (92.0-98.5); BG OXYHEMOGLOBIN 89.6 % (94.0-97.0); BG PCO2 73.8 mmHg (35.0-45.0); BG PH 7.304 (7.350-7.450); BG PO2 61.4 mmHg (75.0-100.0); BG SAMPLE SITE RIGHT BRACHIAL; BG TOTAL HEMOGLOBIN 10.3 g/dL (12.0-18.0); BG VENT MODE NASAL CANNULA
[2022-06-13] MEDS: BUDESONIDE 0.5MG/2ML NEB HHN SCH ×2 (13:52→21:25)
[2022-06-13] MEDS: IPRATROPIUM/ALBUTEROL 0.5-3(2.5)MG/3ML NEB HHN SCH ×2 (13:52→21:20)
[2022-06-13 16:00] VITALS: BP 120/78
[2022-06-13] MEDS: PREDNISONE 20MG TABLET PO SCH (17:05)
[2022-06-13 20:00] VITALS: BP 104/70
[2022-06-13] MEDS ORDERED: VANCOMYCIN 750MG PREMIX 150 ML IV NR (21:00)
[2022-06-13] MEDS ORDERED: VANCOMYCIN 1G PREMIX 200 ML IV SCH (22:00)
[2022-06-13] MEDS: PIPERACILLIN/TAZOBACTAM 3.375 G in DEXTROSE 5% WATER 50 ML IV SCH (23:00)
[2022-06-14] VITALS (8 sets, daily range): BP systolic 96–107; BP diastolic 63–71
[2022-06-14] MEDS: IPRATROPIUM/ALBUTEROL 0.5-3(2.5)MG/3ML NEB HHN SCH ×4 (01:02→20:41)
[2022-06-14] MEDS: PIPERACILLIN/TAZOBACTAM 3.375 G in DEXTROSE 5% WATER 50 ML IV SCH ×3 (06:31→22:07)
[2022-06-14] MEDS: PREDNISONE 20MG TABLET PO SCH (10:04)
[2022-06-14] MEDS: BUDESONIDE 0.5MG/2ML NEB HHN SCH ×2 (10:21→20:41)
[2022-06-14 10:28] LABS: BG BASE EXCESS 14.1 mmol/L (-2.0-2.0); BG CARBOXYHEMOGLOBIN 0.3 % (0.5-1.5); BG DEOXYHEMOGLOBIN 2.2 % (0.0-5.0); BG FRACTION INSPIRED OXYGEN 28; BG HCO3 ACT 46.6 mmol/L (22.0-26.0); BG METHEMOGLOBIN 0.2 % (0.0-1.5); BG OXYGEN SATURATION 97.8 % (92.0-98.5); BG OXYHEMOGLOBIN 97.3 % (94.0-97.0); BG PCO2 134.3 mmHg (35.0-45.0); BG PH 7.158 (7.350-7.450); BG PO2 120.1 mmHg (75.0-100.0); BG SAMPLE SITE RIGHT BRACHIAL; BG TOTAL HEMOGLOBIN 10.1 g/dL (12.0-18.0); BG VENT MODE NASAL CANNULA
[2022-06-14] MEDS ORDERED: P20 MT (11:36)
[2022-06-14 16:32] LABS: BG BASE EXCESS 12.6 mmol/L (-2.0-2.0); BG CARBOXYHEMOGLOBIN 0.2 % (0.5-1.5); BG DEOXYHEMOGLOBIN 2.6 % (0.0-5.0); BG FRACTION INSPIRED OXYGEN 40; BG HCO3 ACT 40.1 mmol/L (22.0-26.0); BG METHEMOGLOBIN 0.2 % (0.0-1.5); BG OXYGEN SATURATION 97.4 % (92.0-98.5); BG PCO2 71.4 mmHg (35.0-45.0); BG PH 7.367 (7.350-7.450); BG PO2 96.4 mmHg (75.0-100.0); BG SAMPLE SITE RIGHT RADIAL; BG TOTAL HEMOGLOBIN 9.8 g/dL (12.0-18.0); BG VENT MODE MASK - BIPAP
[2022-06-14] MEDS: METHYLPREDNISOLONE SOD SUCC 40 MG/ML VIAL IV SCH ×2 (17:16→22:20)
[2022-06-15] VITALS (14 sets, daily range): BP systolic 93–131; BP diastolic 60–84
[2022-06-15] MEDS: IPRATROPIUM/ALBUTEROL 0.5-3(2.5)MG/3ML NEB HHN SCH ×4 (01:03→20:35)
[2022-06-15] MEDS: METHYLPREDNISOLONE SOD SUCC 40 MG/ML VIAL IV SCH ×3 (05:45→21:28)
[2022-06-15] MEDS: PIPERACILLIN/TAZOBACTAM 3.375 G in DEXTROSE 5% WATER 50 ML IV SCH ×3 (06:27→21:28)
[2022-06-15] MEDS: BUDESONIDE 0.5MG/2ML NEB HHN SCH ×2 (08:35→20:34)
[2022-06-15] MEDS: DIPHENHYDRAMINE 50MG/ML VIAL IV PRN (21:31)
[2022-06-16] VITALS (12 sets, daily range): BP systolic 95–132; BP diastolic 63–88
[2022-06-16] MEDS: IPRATROPIUM/ALBUTEROL 0.5-3(2.5)MG/3ML NEB HHN SCH ×4 (01:50→21:17)
[2022-06-16] MEDS: PIPERACILLIN/TAZOBACTAM 3.375 G in DEXTROSE 5% WATER 50 ML IV SCH ×3 (05:05→22:35)
[2022-06-16] MEDS: METHYLPREDNISOLONE SOD SUCC 40 MG/ML VIAL IV SCH ×3 (05:05→22:35)
[2022-06-16] MEDS: BUDESONIDE 0.5MG/2ML NEB HHN SCH (15:01)
[2022-06-17] VITALS (11 sets, daily range): BP systolic 100–127; BP diastolic 63–82
[2022-06-17] MEDS: DIPHENHYDRAMINE 50MG/ML VIAL IV PRN (00:22)
[2022-06-17] MEDS: IPRATROPIUM/ALBUTEROL 0.5-3(2.5)MG/3ML NEB HHN SCH ×4 (02:24→20:13)
[2022-06-17] MEDS: METHYLPREDNISOLONE SOD SUCC 40 MG/ML VIAL IV SCH ×2 (05:32→14:27)
[2022-06-17] MEDS: PIPERACILLIN/TAZOBACTAM 3.375 G in DEXTROSE 5% WATER 50 ML IV SCH ×2 (05:32→14:26)
[2022-06-17 08:27] LABS: BASOPHILS % 0.1 % (0.0-2.0); HEMATOCRIT. 30.8 % (36.0-48.0); HEMOGLOBIN. 9.8 g/dL (12.0-16.0); LYMPHOCYTES % 10.3 % (20.0-50.0); MEAN CORPUSCULAR VOLUME 94.7 fL (81.0-99.0); MEAN PLATELET VOLUME 7.5 fl (7.4-10.4); MONOCYTES % 3.1 % (2.0-8.0); NEUTROPHILS % 86.5 % (40.0-76.0); PLATELET 373 x1000/uL (130-400); RED BLOOD CELL COUNT 3.25 mill/uL (4.2-5.4); RED CELL DISTRIBUTION WIDTH 14.6 % (11.6-14.6)
[2022-06-17 08:42] LABS: CHLORIDE 96 mEq/L (98-107)
== END 2022-06-17 23:21 | disposition home or self-care (01) | DRG 951 ==
LOC: ER 03:01 → 6EST 09:06 → EDBEDREQ 09:13 → EDBEDREQTM 09:13 → ENRESERV 11:57 → 5EST 06-14 15:00
PROVIDERS: ADMIT Internal Medicine; ATTEND Internal Medicine
PROC: 0KBP0ZZ Excision of Left Hip Muscle, Open Approach (ICD-10-PCS; principal; 2022-06-13)
PROC: 0KBN0ZZ Excision of Right Hip Muscle, Open Approach (ICD-10-PCS; 2022-06-13)
PROC: 0JB90ZZ Excision of Buttock Subcutaneous Tissue and Fascia, Open Approach (ICD-10-PCS; 2022-06-13)
PROC: 5A09357 Assistance with Respiratory Ventilation, Less than 24 Consecutive Hours, Continuous Positive Airway Pressure (ICD-10-PCS; 2022-06-14)
PROC: 5A09357 Assistance with Respiratory Ventilation, Less than 24 Consecutive Hours, Continuous Positive Airway Pressure (ICD-10-PCS; 2022-06-15)
PROC: 5A09357 Assistance with Respiratory Ventilation, Less than 24 Consecutive Hours, Continuous Positive Airway Pressure (ICD-10-PCS; 2022-06-16)
PROC: 5A09357 Assistance with Respiratory Ventilation, Less than 24 Consecutive Hours, Continuous Positive Airway Pressure (ICD-10-PCS; 2022-06-17)
DX: T83.511A Infection and inflammatory reaction due to indwelling urethral catheter, initial encounter (principal); J96.22 Acute and chronic respiratory failure with hypercapnia; A41.9 Sepsis, unspecified organism; L89.154 Pressure ulcer of sacral region, stage 4; L89.324 Pressure ulcer of left buttock, stage 4; E44.0 Moderate protein-calorie malnutrition; J18.1 Lobar pneumonia, unspecified organism; I27.29 Other secondary pulmonary hypertension; I27.81 Cor pulmonale (chronic); N30.01 Acute cystitis with hematuria; D64.9 Anemia, unspecified; M19.90 Unspecified osteoarthritis, unspecified site; J43.9 Emphysema, unspecified; I50.9 Heart failure, unspecified; I11.0 Hypertensive heart disease with heart failure; M32.9 Systemic lupus erythematosus, unspecified; Z74.01 Bed confinement status; Z82.49 Family history of ischemic heart disease and other diseases of the circulatory system; Z87.891 Personal history of nicotine dependence; Z68.1 Body mass index [BMI] 19.9 or less, adult; Z99.81 Dependence on supplemental oxygen; Z88.2 Allergy status to sulfonamides; Z88.0 Allergy status to penicillin; Z88.8 Allergy status to other drugs, medicaments and biological substances; Z79.899 Other long term (current) drug therapy; Y84.6 Urinary catheterization as the cause of abnormal reaction of the patient, or of later complication, without mention of misadventure at the time of the procedure; Y92.89 Other specified places as the place of occurrence of the external cause
CPT/HCPCS: 36415; 36600; 71045; 71250; 80048; 80053; 81003; 82040; 82375; 82805; 83540; 83550; 84132; 84134; 84145; 84703; 85025; 87077; 87186; 93306; 93970; 94640; 94660; 99285; J0692; J1200; J1956; J2543; J2920; J3370; J7030; J7060; J7512; J7626; A4315

== ENCOUNTER 2022-08-17 19:07 | Inpatient (IN) | payer MEDICAID ==
[~2022-08-17] VITALS: Ht 170.2 cm; Wt 57.6 kg
[~2022-08-17 19:07] MED LIST changes: -LEVO-65 MT; -LEVO-65 PO; +P20 MT
[2022-08-17 19:45] LABS: BASOPHILS % 0.7 % (0.0-2.0); EOSINOPHILS % 0.5 % (0.0-5.0); HEMATOCRIT. 29.1 % (36.0-48.0); LYMPHOCYTES % 16.6 % (20.0-50.0); MEAN CORPUSCULAR HEMOGLOBIN 30.7 pg (28.0-32.0); MEAN CORPUSCULAR VOLUME 98.9 fL (81.0-99.0); MEAN PLATELET VOLUME 7.7 fl (7.4-10.4); MONOCYTES % 4.6 % (2.0-8.0); NEUTROPHILS % 77.6 % (40.0-76.0); PLATELET 315 x1000/uL (130-400); RED BLOOD CELL COUNT 2.94 mill/uL (4.2-5.4); RED CELL DISTRIBUTION WIDTH 14.5 % (11.6-14.6)
[2022-08-17 19:54] LABS: HCG SCREEN NEGATIVE
[2022-08-17 19:58] LABS: CHLORIDE 97 mEq/L (98-107)
[2022-08-17 20:15] LABS: ETHANOL BLOOD < 10 mg/dL
[2022-08-17 20:58] LABS: CLARITY URINE CLOUDY (CLEAR); COLOR URINE YELLOW (YELLOW); KETONES URINE NEGATIVE (NEGATIVE); LEUKOCYTE ESTERASE URINE 3+ (NEGATIVE); NITRITE URINE NEGATIVE (NEGATIVE); OCCULT BLOOD URINE 2+ (NEGATIVE); PROTEIN URINE 2+ (NEGATIVE); SPECIFIC GRAVITY URINE 1.014 (1.005-1.030); UROBILINOGEN URINE 0.2 E.U./dL (0.2-1.0)
[2022-08-17 21:07] LABS: *AMPHETAMINES SCREEN URINE NEGATIVE (NEGATIVE); *BARBITURATES SCREEN URINE NEGATIVE (NEGATIVE); *BENZODIAZEPINES SCREEN URINE NEGATIVE (NEGATIVE); *COCAINE SCREEN URINE NEGATIVE (NEGATIVE); CANNABINOID URINE SCREEN NEGATIVE (NEGATIVE); METHADONE URINE SCREEN NEGATIVE (NEGATIVE); OPIATES URINE SCREEN NEGATIVE (NEGATIVE); PHENCYCLIDINE URINE SCREEN NEGATIVE (NEGATIVE)
[2022-08-17] MEDS ORDERED: MEROPENEM 500 MG in SODIUM CHLORIDE 0.9% 50 ML IV STA (21:48)
[2022-08-17] MEDS ORDERED: IPRATROPIUM/ALBUTEROL 0.5-3(2.5)MG/3ML NEB NEB PRN (23:45)
[2022-08-17] MEDS ORDERED: DOCUSATE SODIUM 100MG CAPSULE PO PRN (23:45)
[2022-08-17] MEDS ORDERED: MAGNESIUM/ALUMINUM HYDROXIDE/SIMETHICONE 30ML UDC PO PRN (23:45)
[2022-08-17] MEDS ORDERED: NITROGLYCERIN 0.4MG TABLET SL SL PRN (23:45)
[2022-08-17] MEDS ORDERED: ZOLPIDEM TARTRATE 5MG TABLET PO PRN (23:45)
[2022-08-17] MEDS ORDERED: CLONIDINE 0.1MG TABLET PO PRN (23:45)
[2022-08-17] MEDS ORDERED: GUAIFENESIN 200MG/10ML SUGAR FREE UDC PO PRN (23:45)
[2022-08-17] MEDS ORDERED: KETOROLAC 15MG/ML VIAL IV PRN (23:45)
[2022-08-17] MEDS ORDERED: ONDANSETRON HCL 4MG/2ML INJ IV PRN (23:45)
[2022-08-17] MEDS ORDERED: ACETAMINOPHEN 325MG TABLET PO PRN ×2 (23:45)
[2022-08-17] MEDS ORDERED: VANCOMYCIN 1G PREMIX 200 ML IV NR (23:45)
[2022-08-17] MEDS ORDERED: DEXTROSE 50% WATER 50ML SYRINGE IV PRN (23:45)
[2022-08-18] VITALS (54 sets, daily range): BP systolic 70–128; BP diastolic 27–82
[2022-08-18 00:57] LABS: T4 FREE 1.04 ng/dL (0.76-1.46)
[2022-08-18] MEDS ORDERED: SODIUM CHLORIDE 0.9% 1,000 ML IV SCH (01:00)
[2022-08-18 01:19] LABS: VITAMIN B12 SERUM 565 pg/mL (211-911)
[2022-08-18 04:51] LABS: CHLORIDE 101 mEq/L (98-107)
[2022-08-18 04:57] LABS: BASOPHILS % 0.3 % (0.0-2.0); HEMATOCRIT. 30.5 % (36.0-48.0); HEMOGLOBIN. 9.1 g/dL (12.0-16.0); LYMPHOCYTES % 8.3 % (20.0-50.0); MEAN CORPUSCULAR HEMOGLOBIN 29.9 pg (28.0-32.0); MEAN CORPUSCULAR VOLUME 99.7 fL (81.0-99.0); MEAN PLATELET VOLUME 7.1 fl (7.4-10.4); MONOCYTES % 4.8 % (2.0-8.0); NEUTROPHILS % 86.6 % (40.0-76.0); PLATELET 303 x1000/uL (130-400); RED BLOOD CELL COUNT 3.06 mill/uL (4.2-5.4); RED CELL DISTRIBUTION WIDTH 14.5 % (11.6-14.6)
[2022-08-18 04:59] LABS: CREATINE KINASE MB FRACTION 1.7 ng/mL (0.5-3.6)
[2022-08-18 05:00] LABS: PHOSPHORUS 7.8 mg/dL (2.5-4.9)
[2022-08-18] MEDS ORDERED: MEROPENEM 1,000 MG in SODIUM CHLORIDE 0.9% 100 ML IV SCH (06:00)
[2022-08-18] MEDS: INSULIN LISPRO 100 UNITS/ML SUBCUT SCH ×4 (08:20→21:00)
[2022-08-18] MEDS: BLOOD SUGAR DIAGNOSTIC STRIP TEST SCH ×4 (09:00→21:08)
[2022-08-18 09:04] LABS: BG CARBOXYHEMOGLOBIN 2.1 % (0.5-1.5); BG DEOXYHEMOGLOBIN 0.5 % (0.0-5.0); BG FRACTION INSPIRED OXYGEN 36; BG METHEMOGLOBIN 0.3 % (0.0-1.5); BG OXYGEN SATURATION 99.5 % (92.0-98.5); BG OXYHEMOGLOBIN 97.1 % (94.0-97.0); BG PH 6.914 (7.350-7.450); BG PO2 145.8 mmHg (75.0-100.0); BG SAMPLE SITE RIGHT RADIAL; BG TOTAL HEMOGLOBIN 9.9 g/dL (12.0-18.0); BG VENT MODE NASAL CANNULA
[2022-08-18] MEDS ORDERED: NOREPINEPHRINE 8MG/250ML PMX 250 ML IV PRN ×2 (09:45→10:15)
[2022-08-18] MEDS ORDERED: PROPOFOL 10MG/ML 100ML 100 ML IV PRN (10:15)
[2022-08-18] MEDS ORDERED: NOREPINEPHRINE 8 MG in DEXTROSE 5% WATER 250 ML IV PRN (10:15)
[2022-08-18] MEDS ORDERED: SODIUM BICARBONATE 8.4% 1 MEQ/ML 50ML SYR IV SCH (10:30)
[2022-08-18 11:23] LABS: BG CARBOXYHEMOGLOBIN 0.7 % (0.5-1.5); BG DEOXYHEMOGLOBIN 0.5 % (0.0-5.0); BG FRACTION INSPIRED OXYGEN 100; BG HCO3 ACT 41.5 mmol/L (22.0-26.0); BG METHEMOGLOBIN 0.3 % (0.0-1.5); BG OXYGEN SATURATION 99.5 % (92.0-98.5); BG OXYHEMOGLOBIN 98.5 % (94.0-97.0); BG PCO2 64.2 mmHg (35.0-45.0); BG PH 7.428 (7.350-7.450); BG PO2 200.4 mmHg (75.0-100.0); BG SAMPLE SITE LEFT BRACHIAL; BG TOTAL HEMOGLOBIN 9.1 g/dL (12.0-18.0); BG VENT MODE VENT - AC
[2022-08-18] MEDS ORDERED: SODIUM BICARBONATE 150 MEQ in DEXTROSE 5% WATER 1,000 ML IV SCH (12:00)
[2022-08-18] MEDS: LACTULOSE 20G/30ML UDC PO SCH ×2 (12:01→17:19)
[2022-08-18] MEDS: ASCORBIC ACID 500 MG TABLET PO SCH ×2 (12:01→21:07)
[2022-08-18] MEDS: ASPIRIN 325MG EC TABLET PO SCH (12:01)
[2022-08-18] MEDS: FAMOTIDINE 20MG TABLET PO SCH ×2 (12:01→21:07)
[2022-08-18] MEDS: ZINC SULFATE 220 MG ( 50 ) CAPSULE PO SCH (12:01)
[2022-08-18] MEDS: ENOXAPARIN 40MG/0.4ML SYR SUBCUT SCH (12:02)
[2022-08-18] MEDS: VANCOMYCIN 750MG PREMIX 150 ML IV SCH ×2 (12:03→17:19)
[2022-08-18] MEDS ORDERED: FENTANYL CITRATE 2,500 MCG in SODIUM CHLORIDE 0.9% 200 ML IV PRN (12:45)
[2022-08-18] MEDS ORDERED: FENTANYL 2500MCG/250ML PMX 250 ML IV ONE (12:45)
[2022-08-18] MEDS ORDERED: MIDAZOLAM 100MG/100ML PMX 100 ML IV PRN (12:45)
[2022-08-18] MEDS: MIDAZOLAM HCL 100 MG in SODIUM CHLORIDE 0.9% 100 ML IV PRN (13:21)
[2022-08-18 13:26] LABS: BG BASE EXCESS 11.4 mmol/L (-2.0-2.0); BG CARBOXYHEMOGLOBIN 0.5 % (0.5-1.5); BG DEOXYHEMOGLOBIN 0.7 % (0.0-5.0); BG FRACTION INSPIRED OXYGEN 80; BG HCO3 ACT 34.4 mmol/L (22.0-26.0); BG METHEMOGLOBIN 0.4 % (0.0-1.5); BG OXYGEN SATURATION 99.3 % (92.0-98.5); BG OXYHEMOGLOBIN 98.4 % (94.0-97.0); BG PCO2 38.4 mmHg (35.0-45.0); BG PO2 117.2 mmHg (75.0-100.0); BG SAMPLE SITE RIGHT RADIAL; BG TOTAL HEMOGLOBIN 9.2 g/dL (12.0-18.0); BG VENT MODE VENT - AC
[2022-08-18] MEDS: MEROPENEM 1,000 MG in SODIUM CHLORIDE 0.9% 100 ML IV SCH ×2 (13:49→22:23)
[2022-08-18] MEDS: HYDROCORTISONE SOD SUCCINATE 100 MG/2 ML VIAL IV SCH ×2 (14:00→21:06)
[2022-08-18] MEDS: IPRATROPIUM/ALBUTEROL 0.5-3(2.5)MG/3ML NEB HHN SCH ×2 (15:20→20:16)
[2022-08-18 16:18] LABS: CREATINE KINASE 27 IU/L (26-192); CREATINE KINASE MB FRACTION < 1.0 ng/mL (0.5-3.6)
[2022-08-18 19:14] LABS: HEMATOCRIT. 26.9 % (36.0-48.0); HEMOGLOBIN. 8.3 g/dL (12.0-16.0); MEAN CORPUSCULAR HEMOGLOBIN 29.7 pg (28.0-32.0); MEAN CORPUSCULAR VOLUME 96.5 fL (81.0-99.0); MEAN PLATELET VOLUME 7.8 fl (7.4-10.4); PLATELET 265 x1000/uL (130-400); RED BLOOD CELL COUNT 2.79 mill/uL (4.2-5.4)
[2022-08-18 21:28] LABS: NUCLEATED RED BLOOD CELLS 1 /100 WBC; PLATELET ESTIMATE NORMAL
[2022-08-19] VITALS (90 sets, daily range): BP systolic 90–172; BP diastolic 65–106
[2022-08-19] MEDS: IPRATROPIUM/ALBUTEROL 0.5-3(2.5)MG/3ML NEB HHN SCH ×4 (01:51→20:49)
[2022-08-19] MEDS: VANCOMYCIN 750MG PREMIX 150 ML IV SCH (02:34)
[2022-08-19 05:48] LABS: BASOPHILS % 0.1 % (0.0-2.0); HEMATOCRIT. 26.5 % (36.0-48.0); HEMOGLOBIN. 8.2 g/dL (12.0-16.0); LYMPHOCYTES % 9.1 % (20.0-50.0); MEAN CORPUSCULAR VOLUME 97.3 fL (81.0-99.0); MEAN PLATELET VOLUME 8.2 fl (7.4-10.4); MONOCYTES % 2.3 % (2.0-8.0); NEUTROPHILS % 88.5 % (40.0-76.0); PLATELET 234 x1000/uL (130-400); RED BLOOD CELL COUNT 2.72 mill/uL (4.2-5.4)
[2022-08-19 05:59] LABS: PHOSPHORUS 1.9 mg/dL (2.5-4.9)
[2022-08-19] MEDS: MEROPENEM 1,000 MG in SODIUM CHLORIDE 0.9% 100 ML IV SCH ×2 (06:16→18:20)
[2022-08-19] MEDS: HYDROCORTISONE SOD SUCCINATE 100 MG/2 ML VIAL IV SCH ×3 (06:21→22:50)
[2022-08-19] MEDS: BLOOD SUGAR DIAGNOSTIC STRIP TEST SCH ×4 (07:50→22:56)
[2022-08-19] MEDS: INSULIN LISPRO 100 UNITS/ML SUBCUT SCH ×4 (08:20→21:00)
[2022-08-19 08:57] LABS: BG BASE EXCESS 14.8 mmol/L (-2.0-2.0); BG DEOXYHEMOGLOBIN 0.3 % (0.0-5.0); BG FRACTION INSPIRED OXYGEN 70; BG METHEMOGLOBIN 0.4 % (0.0-1.5); BG OXYGEN SATURATION 99.7 % (92.0-98.5); BG OXYHEMOGLOBIN 98.3 % (94.0-97.0); BG PCO2 41.2 mmHg (35.0-45.0); BG PH 7.583 (7.350-7.450); BG PO2 275.1 mmHg (75.0-100.0); BG SAMPLE SITE LEFT RADIAL; BG TOTAL HEMOGLOBIN 8.5 g/dL (12.0-18.0); BG TOTAL RESPIRATORY RATE 20 b/min; BG VENT MODE VENT - AC
[2022-08-19] MEDS: FAMOTIDINE 20MG TABLET PO SCH ×2 (09:57→21:00)
[2022-08-19] MEDS: ASCORBIC ACID 500 MG TABLET PO SCH ×2 (09:57→21:00)
[2022-08-19] MEDS: ASPIRIN 325MG EC TABLET PO SCH (09:57)
[2022-08-19] MEDS: ENOXAPARIN 40MG/0.4ML SYR SUBCUT SCH (09:58)
[2022-08-19] MEDS: ZINC SULFATE 220 MG ( 50 ) CAPSULE PO SCH (09:58)
[2022-08-19] MEDS: LACTULOSE 20G/30ML UDC PO SCH ×2 (09:58→17:32)
[2022-08-19] MEDS ORDERED: KETOROLAC 15MG/ML VIAL IV PRN (10:00)
[2022-08-19] MEDS: MIDAZOLAM HCL 100 MG in SODIUM CHLORIDE 0.9% 100 ML IV PRN (18:27)
[2022-08-20] VITALS (76 sets, daily range): BP systolic 108–151; BP diastolic 70–99
[2022-08-20] MEDS: IPRATROPIUM/ALBUTEROL 0.5-3(2.5)MG/3ML NEB HHN SCH ×4 (02:21→20:48)
[2022-08-20 06:03] LABS: HEMATOCRIT. 23.7 % (36.0-48.0); HEMOGLOBIN. 7.6 g/dL (12.0-16.0); MEAN CORPUSCULAR HEMOGLOBIN 30.2 pg (28.0-32.0); MEAN CORPUSCULAR VOLUME 94.1 fL (81.0-99.0); MEAN PLATELET VOLUME 8.3 fl (7.4-10.4); PLATELET 256 x1000/uL (130-400); RED BLOOD CELL COUNT 2.51 mill/uL (4.2-5.4); RED CELL DISTRIBUTION WIDTH 14.6 % (11.6-14.6)
[2022-08-20] MEDS: MEROPENEM 1,000 MG in SODIUM CHLORIDE 0.9% 100 ML IV SCH (06:24)
[2022-08-20] MEDS: HYDROCORTISONE SOD SUCCINATE 100 MG/2 ML VIAL IV SCH ×3 (06:25→21:23)
[2022-08-20 06:32] LABS: PHOSPHORUS 3.5 mg/dL (2.5-4.9)
[2022-08-20] MEDS: BLOOD SUGAR DIAGNOSTIC STRIP TEST SCH ×4 (08:11→21:00)
[2022-08-20] MEDS: INSULIN LISPRO 100 UNITS/ML SUBCUT SCH ×4 (08:12→21:00)
[2022-08-20] MEDS: SODIUM CHLORIDE 0.45% 1,000 ML IV SCH (08:13)
[2022-08-20 08:52] LABS: BG BASE EXCESS 11.1 mmol/L (-2.0-2.0); BG CARBOXYHEMOGLOBIN 0.7 % (0.5-1.5); BG DEOXYHEMOGLOBIN 0.3 % (0.0-5.0); BG FRACTION INSPIRED OXYGEN 70; BG HCO3 ACT 35.8 mmol/L (22.0-26.0); BG METHEMOGLOBIN 0.5 % (0.0-1.5); BG OXYGEN SATURATION 99.7 % (92.0-98.5); BG OXYHEMOGLOBIN 98.5 % (94.0-97.0); BG PCO2 49.8 mmHg (35.0-45.0); BG PH 7.475 (7.350-7.450); BG PO2 286.5 mmHg (75.0-100.0); BG SAMPLE SITE RIGHT RADIAL; BG TOTAL HEMOGLOBIN 8.2 g/dL (12.0-18.0); BG TOTAL RESPIRATORY RATE 14 b/min; BG VENT MODE VENT - AC
[2022-08-20] MEDS: ENOXAPARIN 30MG/0.3ML SYR SUBCUT SCH (09:03)
[2022-08-20] MEDS: LACTULOSE 20G/30ML UDC PO SCH ×2 (09:03→16:57)
[2022-08-20] MEDS: ASPIRIN 325MG EC TABLET PO SCH (09:07)
[2022-08-20] MEDS: FAMOTIDINE 20MG TABLET PO SCH ×2 (09:07→21:23)
[2022-08-20] MEDS: ASCORBIC ACID 500 MG TABLET PO SCH ×2 (09:07→21:23)
[2022-08-20] MEDS: ZINC SULFATE 220 MG ( 50 ) CAPSULE PO SCH (09:07)
[2022-08-20 11:48] LABS: PLATELET ESTIMATE NORMAL
[2022-08-20 17:40] LABS: BG BASE EXCESS 10.6 mmol/L (-2.0-2.0); BG CARBOXYHEMOGLOBIN 0.2 % (0.5-1.5); BG DEOXYHEMOGLOBIN 4.4 % (0.0-5.0); BG HCO3 ACT 37.2 mmol/L (22.0-26.0); BG METHEMOGLOBIN 0.1 % (0.0-1.5); BG OXYGEN SATURATION 95.6 % (92.0-98.5); BG OXYHEMOGLOBIN 95.3 % (94.0-97.0); BG PCO2 64.5 mmHg (35.0-45.0); BG PH 7.379 (7.350-7.450); BG PO2 83.8 mmHg (75.0-100.0); BG SAMPLE SITE RIGHT RADIAL; BG TOTAL HEMOGLOBIN 8.4 g/dL (12.0-18.0); BG VENT MODE VENT - CPAP
[2022-08-20] MEDS ORDERED: MELATONIN 3MG TABLET PO PRN (21:00)
[2022-08-20] MEDS: CEFTAZIDIME PENTAHYDRATE 1 G in DEXTROSE 5% WATER 50 ML IV SCH (21:23)
[2022-08-21] VITALS (28 sets, daily range): BP systolic 106–152; BP diastolic 67–91
[2022-08-21] MEDS: SODIUM CHLORIDE 0.45% 1,000 ML IV SCH (00:06)
[2022-08-21] MEDS: IPRATROPIUM/ALBUTEROL 0.5-3(2.5)MG/3ML NEB HHN SCH ×4 (02:29→20:03)
[2022-08-21] MEDS: MELATONIN 3MG TABLET PO PRN ×2 (03:45→22:12)
[2022-08-21 05:35] LABS: HEMATOCRIT. 21.8 % (36.0-48.0); LYMPHOCYTES % 11.2 % (20.0-50.0); MEAN CORPUSCULAR HEMOGLOBIN 29.9 pg (28.0-32.0); MEAN CORPUSCULAR VOLUME 93.2 fL (81.0-99.0); MEAN PLATELET VOLUME 8.5 fl (7.4-10.4); MONOCYTES % 9.1 % (2.0-8.0); NEUTROPHILS % 79.7 % (40.0-76.0); PLATELET 233 x1000/uL (130-400); RED BLOOD CELL COUNT 2.34 mill/uL (4.2-5.4); RED CELL DISTRIBUTION WIDTH 14.6 % (11.6-14.6)
[2022-08-21] MEDS: HYDROCORTISONE SOD SUCCINATE 100 MG/2 ML VIAL IV SCH ×3 (06:04→22:12)
[2022-08-21] MEDS: BLOOD SUGAR DIAGNOSTIC STRIP TEST SCH ×4 (08:14→21:00)
[2022-08-21] MEDS: INSULIN LISPRO 100 UNITS/ML SUBCUT SCH ×4 (08:20→22:13)
[2022-08-21] MEDS: FAMOTIDINE 20MG TABLET PO SCH (08:21)
[2022-08-21] MEDS: ZINC SULFATE 220 MG ( 50 ) CAPSULE PO SCH (08:21)
[2022-08-21] MEDS: LACTULOSE 20G/30ML UDC PO SCH ×2 (08:21→17:28)
[2022-08-21] MEDS: ASCORBIC ACID 500 MG TABLET PO SCH ×2 (08:21→22:12)
[2022-08-21] MEDS: ASPIRIN 325MG EC TABLET PO SCH (08:22)
[2022-08-21] MEDS: ENOXAPARIN 30MG/0.3ML SYR SUBCUT SCH (08:23)
[2022-08-21] MEDS ORDERED: POTASSIUM CHLORIDE 20MEQ/PACKET PO NR (08:30)
[2022-08-21 10:03] LABS: BG CARBOXYHEMOGLOBIN 0.6 % (0.5-1.5); BG DEOXYHEMOGLOBIN 2.1 % (0.0-5.0); BG FRACTION INSPIRED OXYGEN 35; BG HCO3 ACT 36.8 mmol/L (22.0-26.0); BG METHEMOGLOBIN 0.4 % (0.0-1.5); BG OXYGEN SATURATION 97.9 % (92.0-98.5); BG OXYHEMOGLOBIN 96.9 % (94.0-97.0); BG PCO2 65.4 mmHg (35.0-45.0); BG PH 7.368 (7.350-7.450); BG PO2 116.3 mmHg (75.0-100.0); BG SAMPLE SITE RIGHT RADIAL; BG TOTAL HEMOGLOBIN 8.6 g/dL (12.0-18.0); BG VENT MODE VENT - CPAP
[2022-08-21 11:16] LABS: HEMATOCRIT. 22.8 % (36.0-48.0); HEMOGLOBIN. 7.3 g/dL (12.0-16.0); LYMPHOCYTES % 17.1 % (20.0-50.0); MEAN CORPUSCULAR HEMOGLOBIN 29.9 pg (28.0-32.0); MEAN CORPUSCULAR VOLUME 93.5 fL (81.0-99.0); MEAN PLATELET VOLUME 8.3 fl (7.4-10.4); MONOCYTES % 8.4 % (2.0-8.0); NEUTROPHILS % 74.5 % (40.0-76.0); PLATELET 225 x1000/uL (130-400); RED BLOOD CELL COUNT 2.44 mill/uL (4.2-5.4); RED CELL DISTRIBUTION WIDTH 14.9 % (11.6-14.6)
[2022-08-21 13:07] LABS: INR 1.1; PROTHROMBIN TIME 11.5 sec (9.6-11.0)
[2022-08-21 16:22] LABS: BG BASE EXCESS 8.8 mmol/L (-2.0-2.0); BG CARBOXYHEMOGLOBIN 0.3 % (0.5-1.5); BG FRACTION INSPIRED OXYGEN 30; BG HCO3 ACT 30.1 mmol/L (22.0-26.0); BG METHEMOGLOBIN 0.3 % (0.0-1.5); BG OXYHEMOGLOBIN 96.4 % (94.0-97.0); BG PCO2 29.3 mmHg (35.0-45.0); BG SAMPLE SITE RIGHT RADIAL; BG TOTAL HEMOGLOBIN 8.9 g/dL (12.0-18.0); BG VENT MODE VENT - AC
[2022-08-21] MEDS: CEFTAZIDIME PENTAHYDRATE 1 G in DEXTROSE 5% WATER 50 ML IV SCH (17:28)
[2022-08-21 17:39] LABS: HEMATOCRIT 26.5 % (36.0-48.0); HEMOGLOBIN 8.5 g/dL (12.0-16.0)
[2022-08-22] VITALS (25 sets, daily range): BP systolic 116–164; BP diastolic 51–94
[2022-08-22] MEDS: IPRATROPIUM/ALBUTEROL 0.5-3(2.5)MG/3ML NEB HHN SCH ×5 (01:48→20:59)
[2022-08-22] MEDS: HYDROCORTISONE SOD SUCCINATE 100 MG/2 ML VIAL IV SCH ×3 (05:14→21:30)
[2022-08-22 05:36] LABS: HEMATOCRIT. 24.3 % (36.0-48.0); HEMOGLOBIN. 8.1 g/dL (12.0-16.0); MEAN CORPUSCULAR HEMOGLOBIN 30.5 pg (28.0-32.0); MEAN CORPUSCULAR VOLUME 91.7 fL (81.0-99.0); MEAN PLATELET VOLUME 8.5 fl (7.4-10.4); MONOCYTES % 6.5 % (2.0-8.0); NEUTROPHILS % 84.5 % (40.0-76.0); PLATELET 221 x1000/uL (130-400); RED BLOOD CELL COUNT 2.65 mill/uL (4.2-5.4); RED CELL DISTRIBUTION WIDTH 15.8 % (11.6-14.6)
[2022-08-22 05:47] LABS: PHOSPHORUS 2.9 mg/dL (2.5-4.9)
[2022-08-22] MEDS ORDERED: POTASSIUM CHLORIDE 20MEQ/PACKET PO SCH (07:15)
[2022-08-22] MEDS: INSULIN LISPRO 100 UNITS/ML SUBCUT SCH ×4 (08:20→21:00)
[2022-08-22] MEDS: BLOOD SUGAR DIAGNOSTIC STRIP TEST SCH ×4 (08:37→21:00)
[2022-08-22] MEDS: LACTULOSE 20G/30ML UDC PO SCH ×2 (08:43→17:00)
[2022-08-22] MEDS: ZINC SULFATE 220 MG ( 50 ) CAPSULE PO SCH (08:44)
[2022-08-22] MEDS: PANTOPRAZOLE SODIUM 40 MG/VIAL IV SCH (08:44)
[2022-08-22] MEDS: ASCORBIC ACID 500 MG TABLET PO SCH ×2 (08:44→21:30)
[2022-08-22] MEDS ORDERED: FAMOTIDINE 20MG TABLET PO SCH (09:00)
[2022-08-22 13:27] LABS: BG CARBOXYHEMOGLOBIN 0.7 % (0.5-1.5); BG DEOXYHEMOGLOBIN 1.9 % (0.0-5.0); BG FRACTION INSPIRED OXYGEN 30; BG HCO3 ACT 30.2 mmol/L (22.0-26.0); BG METHEMOGLOBIN 0.2 % (0.0-1.5); BG OXYGEN SATURATION 98.1 % (92.0-98.5); BG OXYHEMOGLOBIN 97.2 % (94.0-97.0); BG PCO2 48.4 mmHg (35.0-45.0); BG PH 7.413 (7.350-7.450); BG PO2 109.3 mmHg (75.0-100.0); BG SAMPLE SITE RIGHT RADIAL; BG TOTAL HEMOGLOBIN 8.4 g/dL (12.0-18.0); BG VENT MODE VENT - CPAP
[2022-08-22] MEDS: CEFTAZIDIME PENTAHYDRATE 1 G in DEXTROSE 5% WATER 50 ML IV SCH (18:25)
[2022-08-22] MEDS: MELATONIN 3MG TABLET PO PRN (21:30)
[2022-08-23] VITALS (24 sets, daily range): BP systolic 124–162; BP diastolic 72–99
[2022-08-23] MEDS: IPRATROPIUM/ALBUTEROL 0.5-3(2.5)MG/3ML NEB HHN SCH ×2 (01:55→08:55)
[2022-08-23] MEDS: HYDROCORTISONE SOD SUCCINATE 100 MG/2 ML VIAL IV SCH ×3 (05:15→21:20)
[2022-08-23 05:28] LABS: BASOPHILS % 0.1 % (0.0-2.0); HEMATOCRIT. 26.6 % (36.0-48.0); HEMOGLOBIN. 8.4 g/dL (12.0-16.0); LYMPHOCYTES % 11.6 % (20.0-50.0); MEAN CORPUSCULAR HEMOGLOBIN 29.9 pg (28.0-32.0); MEAN CORPUSCULAR VOLUME 94.3 fL (81.0-99.0); MEAN PLATELET VOLUME 8.6 fl (7.4-10.4); MONOCYTES % 5.8 % (2.0-8.0); NEUTROPHILS % 82.5 % (40.0-76.0); PLATELET 196 x1000/uL (130-400); RED BLOOD CELL COUNT 2.82 mill/uL (4.2-5.4); RED CELL DISTRIBUTION WIDTH 15.9 % (11.6-14.6)
[2022-08-23] MEDS: BLOOD SUGAR DIAGNOSTIC STRIP TEST SCH ×4 (07:50→21:00)
[2022-08-23] MEDS: INSULIN LISPRO 100 UNITS/ML SUBCUT SCH ×4 (07:56→21:00)
[2022-08-23] MEDS: LACTULOSE 20G/30ML UDC PO SCH ×2 (09:24→17:27)
[2022-08-23] MEDS: ASCORBIC ACID 500 MG TABLET PO SCH ×2 (09:24→21:20)
[2022-08-23] MEDS: ZINC SULFATE 220 MG ( 50 ) CAPSULE PO SCH (09:24)
[2022-08-23] MEDS: PANTOPRAZOLE SODIUM 40 MG/VIAL IV SCH (09:24)
[2022-08-23] MEDS ORDERED: IPRATROPIUM BROMIDE (0.02%) 0.5MG/2.5ML NEB HHN PRN (12:45)
[2022-08-23] MEDS ORDERED: ALBUTEROL (0.083%) 2.5MG/3ML NEB HHN PRN (12:45)
[2022-08-23] MEDS: ALBUTEROL (0.083%) 2.5MG/3ML NEB HHN SCH ×2 (16:30→20:05)
[2022-08-23] MEDS: IPRATROPIUM BROMIDE (0.02%) 0.5MG/2.5ML NEB HHN SCH ×2 (16:30→20:06)
[2022-08-23] MEDS: CEFTAZIDIME PENTAHYDRATE 1 G in DEXTROSE 5% WATER 50 ML IV SCH (17:27)
[2022-08-24] VITALS (24 sets, daily range): BP systolic 113–151; BP diastolic 39–92
[2022-08-24] MEDS: IPRATROPIUM BROMIDE (0.02%) 0.5MG/2.5ML NEB HHN SCH ×4 (02:10→21:20)
[2022-08-24] MEDS: ALBUTEROL (0.083%) 2.5MG/3ML NEB HHN SCH ×4 (02:10→21:20)
[2022-08-24 05:33] LABS: BASOPHILS % 0.1 % (0.0-2.0); HEMATOCRIT. 27.6 % (36.0-48.0); HEMOGLOBIN. 8.9 g/dL (12.0-16.0); MEAN CORPUSCULAR HEMOGLOBIN 30.2 pg (28.0-32.0); MEAN CORPUSCULAR VOLUME 94.1 fL (81.0-99.0); MEAN PLATELET VOLUME 8.7 fl (7.4-10.4); MONOCYTES % 4.3 % (2.0-8.0); NEUTROPHILS % 86.6 % (40.0-76.0); PLATELET 221 x1000/uL (130-400); RED BLOOD CELL COUNT 2.93 mill/uL (4.2-5.4); RED CELL DISTRIBUTION WIDTH 15.5 % (11.6-14.6)
[2022-08-24 05:35] LABS: CHLORIDE 108 mEq/L (98-107)
[2022-08-24 05:41] LABS: PHOSPHORUS 4.8 mg/dL (2.5-4.9)
[2022-08-24] MEDS: HYDROCORTISONE SOD SUCCINATE 100 MG/2 ML VIAL IV SCH ×3 (05:49→21:44)
[2022-08-24] MEDS ORDERED: POTASSIUM CHLORIDE 20MEQ TABLET SR PO NR (07:30)
[2022-08-24] MEDS: BLOOD SUGAR DIAGNOSTIC STRIP TEST SCH ×4 (07:58→21:00)
[2022-08-24] MEDS: INSULIN LISPRO 100 UNITS/ML SUBCUT SCH ×4 (07:58→21:00)
[2022-08-24] MEDS: LACTULOSE 20G/30ML UDC PO SCH (08:05)
[2022-08-24] MEDS: ASCORBIC ACID 500 MG TABLET PO SCH ×2 (08:52→21:42)
[2022-08-24] MEDS: PANTOPRAZOLE SODIUM 40 MG/VIAL IV SCH (08:53)
[2022-08-24] MEDS: ZINC SULFATE 220 MG ( 50 ) CAPSULE PO SCH (08:54)
[2022-08-24] MEDS: CEFTAZIDIME PENTAHYDRATE 1 G in DEXTROSE 5% WATER 50 ML IV SCH (17:25)
[2022-08-25] VITALS (18 sets, daily range): BP systolic 89–149; BP diastolic 43–96
[2022-08-25] MEDS: IPRATROPIUM BROMIDE (0.02%) 0.5MG/2.5ML NEB HHN SCH ×5 (02:27→21:23)
[2022-08-25] MEDS: ALBUTEROL (0.083%) 2.5MG/3ML NEB HHN SCH ×5 (02:27→21:23)
[2022-08-25 05:31] LABS: BASOPHILS % 0.1 % (0.0-2.0); EOSINOPHILS % 0.1 % (0.0-5.0); HEMATOCRIT. 28.9 % (36.0-48.0); HEMOGLOBIN. 9.1 g/dL (12.0-16.0); MEAN CORPUSCULAR HEMOGLOBIN 29.4 pg (28.0-32.0); MEAN PLATELET VOLUME 9.5 fl (7.4-10.4); MONOCYTES % 2.7 % (2.0-8.0); NEUTROPHILS % 87.1 % (40.0-76.0); PLATELET 241 x1000/uL (130-400); RED CELL DISTRIBUTION WIDTH 15.3 % (11.6-14.6)
[2022-08-25 05:48] LABS: CHLORIDE 105 mEq/L (98-107)
[2022-08-25 05:54] LABS: PHOSPHORUS 3.5 mg/dL (2.5-4.9)
[2022-08-25] MEDS: BLOOD SUGAR DIAGNOSTIC STRIP TEST SCH ×4 (07:50→21:04)
[2022-08-25] MEDS: INSULIN LISPRO 100 UNITS/ML SUBCUT SCH ×4 (08:20→21:14)
[2022-08-25] MEDS: ZINC SULFATE 220 MG ( 50 ) CAPSULE PO SCH (10:05)
[2022-08-25] MEDS: ASCORBIC ACID 500 MG TABLET PO SCH (10:05)
[2022-08-25] MEDS: HYDROCORTISONE 10MG TABLET PO SCH ×2 (10:05→17:24)
[2022-08-25] MEDS: PANTOPRAZOLE SODIUM 40 MG/VIAL IV SCH (10:05)
[2022-08-25] MEDS: CEFTAZIDIME PENTAHYDRATE 1 G in DEXTROSE 5% WATER 50 ML IV SCH (17:21)
[2022-08-25] MEDS: MELATONIN 3MG TABLET PO PRN (22:15)
[2022-08-26] VITALS (11 sets, daily range): BP systolic 113–148; BP diastolic 79–96
[2022-08-26] MEDS: IPRATROPIUM BROMIDE (0.02%) 0.5MG/2.5ML NEB HHN SCH ×3 (00:50→14:41)
[2022-08-26] MEDS: ALBUTEROL (0.083%) 2.5MG/3ML NEB HHN SCH ×3 (00:50→14:41)
[2022-08-26 06:13] LABS: BASOPHILS % 0.1 % (0.0-2.0); EOSINOPHILS % 2.4 % (0.0-5.0); HEMATOCRIT. 29.3 % (36.0-48.0); HEMOGLOBIN. 9.3 g/dL (12.0-16.0); MEAN CORPUSCULAR HEMOGLOBIN 29.5 pg (28.0-32.0); MEAN CORPUSCULAR VOLUME 92.5 fL (81.0-99.0); MEAN PLATELET VOLUME 9.5 fl (7.4-10.4); MONOCYTES % 7.5 % (2.0-8.0); PLATELET 254 x1000/uL (130-400); RED BLOOD CELL COUNT 3.16 mill/uL (4.2-5.4); RED CELL DISTRIBUTION WIDTH 15.3 % (11.6-14.6)
[2022-08-26 06:45] LABS: CHLORIDE 107 mEq/L (98-107)
[2022-08-26] MEDS: BLOOD SUGAR DIAGNOSTIC STRIP TEST SCH ×3 (07:32→17:31)
[2022-08-26] MEDS: INSULIN LISPRO 100 UNITS/ML SUBCUT SCH ×3 (07:33→17:31)
[2022-08-26] MEDS: ZINC SULFATE 220 MG ( 50 ) CAPSULE PO SCH (08:39)
[2022-08-26] MEDS: PANTOPRAZOLE SODIUM 40 MG/VIAL IV SCH (08:39)
[2022-08-26] MEDS: HYDROCORTISONE 10MG TABLET PO SCH ×2 (08:40→17:41)
[2022-08-26] MEDS ORDERED: HYDROXYCHLOROQUINE SULFATE 200MG TABLET PO SCH (09:00)
[2022-08-26] MEDS ORDERED: FOLIC ACID 1MG TABLET PO SCH (09:00)
[2022-08-26] MEDS ORDERED: ASCORBIC ACID 500 MG TABLET PO SCH (09:00)
[2022-08-26] MEDS ORDERED: ZINC SULFATE 220 MG ( 50 ) CAPSULE PO SCH (09:00)
[2022-08-27] MEDS ORDERED: PANTOPRAZOLE 40MG DR TABLET PO SCH (07:30)
== END 2022-08-26 21:25 | disposition home health service (06) | DRG 720 ==
LOC: ER 19:07 → MICUSO 21:50 → 8WST 08-18 09:00 → CVICU 08-18 10:00 → 5EST 08-25 11:44
PROVIDERS: ADMIT Internal Medicine; ATTEND Internal Medicine
PROC: 5A1955Z Respiratory Ventilation, Greater than 96 Consecutive Hours (ICD-10-PCS; principal; 2022-08-18)
PROC: 0BH17EZ Insertion of Endotracheal Airway into Trachea, Via Natural or Artificial Opening (ICD-10-PCS; 2022-08-18)
PROC: 06HY33Z Insertion of Infusion Device into Lower Vein, Percutaneous Approach (ICD-10-PCS; 2022-08-18)
PROC: 30233N1 Transfusion of Nonautologous Red Blood Cells into Peripheral Vein, Percutaneous Approach (ICD-10-PCS; 2022-08-21)
DX: A41.9 Sepsis, unspecified organism (principal); J96.00 Acute respiratory failure, unspecified whether with hypoxia or hypercapnia; N17.0 Acute kidney failure with tubular necrosis; J69.0 Pneumonitis due to inhalation of food and vomit; R65.21 Severe sepsis with septic shock; G93.41 Metabolic encephalopathy; E87.20 Acidosis, unspecified; E72.4 Disorders of ornithine metabolism; L89.154 Pressure ulcer of sacral region, stage 4; D63.8 Anemia in other chronic diseases classified elsewhere; E87.4 Mixed disorder of acid-base balance; I27.20 Pulmonary hypertension, unspecified; Z20.822 Contact with and (suspected) exposure to COVID-19; E44.0 Moderate protein-calorie malnutrition; N39.0 Urinary tract infection, site not specified; E87.5 Hyperkalemia; M06.9 Rheumatoid arthritis, unspecified; I45.10 Unspecified right bundle-branch block; E87.6 Hypokalemia; D53.9 Nutritional anemia, unspecified; J43.9 Emphysema, unspecified; I50.9 Heart failure, unspecified; E87.29 Other acidosis; R74.01 Elevation of levels of liver transaminase levels; M32.9 Systemic lupus erythematosus, unspecified; Z87.440 Personal history of urinary (tract) infections; Z82.49 Family history of ischemic heart disease and other diseases of the circulatory system; Z88.0 Allergy status to penicillin; Z88.2 Allergy status to sulfonamides; Z74.01 Bed confinement status; Z68.1 Body mass index [BMI] 19.9 or less, adult; A41.50 Gram-negative sepsis, unspecified
CPT/HCPCS: 31500; 36415; 36600; 70551; 71045; 76770; 80048; 80053; 80061; 80202; 80305; 80307; 80320; 80329; 81003; 82040; 82140; 82270; 82375; 82533; 82550; 82553; 82607; 82728; 82746; 82805; 82962; 83036; 83540; 83550; 83605; 83735; 83880; 84100; 84134; 84145; 84439; 84443; 84478; 84484; 84703; 85014; 85018; 85025; 85044; 85384; 86850; 86900; 86920; 87070; 87077; 87186; 87426; 92610; 93005; 93306; 93970; 94003; 94640; 99285; A6261; C9113; J0713; J1650; J1720; J1815; J2185; J2250; J2704; J3370; J3490; J7050; J7060; J7070; P9016; G0480

== ENCOUNTER 2022-09-07 08:20 | Inpatient (IN) | payer MEDICAID ==
[~2022-09-07] VITALS: Ht 175.3 cm; Wt 49.2 kg
[2022-09-07] VITALS (34 sets, daily range): BP systolic 57–196; BP diastolic 32–118
[2022-09-07] MEDS ORDERED: MEROPENEM 1,000 MG in SODIUM CHLORIDE 0.9% 100 ML IV ONE (08:30)
[2022-09-07] MEDS ORDERED: VANCOMYCIN 1G PREMIX 200 ML IV ONE (08:30)
[2022-09-07 09:59] LABS: BASOPHILS % 0.2 % (0.0-2.0); EOSINOPHILS % 1.6 % (0.0-5.0); HEMATOCRIT. 30.6 % (36.0-48.0); HEMOGLOBIN. 9.5 g/dL (12.0-16.0); MEAN CORPUSCULAR HEMOGLOBIN 29.4 pg (28.0-32.0); MEAN CORPUSCULAR VOLUME 94.4 fL (81.0-99.0); MEAN PLATELET VOLUME 8.1 fl (7.4-10.4); MONOCYTES % 3.5 % (2.0-8.0); NEUTROPHILS % 74.7 % (40.0-76.0); PLATELET 205 x1000/uL (130-400); RED BLOOD CELL COUNT 3.24 mill/uL (4.2-5.4); RED CELL DISTRIBUTION WIDTH 15.3 % (11.6-14.6)
[2022-09-07 10:05] LABS: INR 1.1; PROTHROMBIN TIME 11.6 sec (9.6-11.0)
[2022-09-07 10:06] LABS: CHLORIDE 99 mEq/L (98-107)
[2022-09-07 10:20] LABS: CLARITY URINE TURBID (CLEAR); COLOR URINE YELLOW (YELLOW); KETONES URINE NEGATIVE (NEGATIVE); LEUKOCYTE ESTERASE URINE 3+ (NEGATIVE); NITRITE URINE NEGATIVE (NEGATIVE); OCCULT BLOOD URINE 2+ (NEGATIVE); PH URINE 6.5 (4.5-8.0); PROTEIN URINE 2+ (NEGATIVE); SPECIFIC GRAVITY URINE 1.012 (1.005-1.030); UROBILINOGEN URINE 0.2 E.U./dL (0.2-1.0)
[2022-09-07 10:24] LABS: HCG SCREEN NEGATIVE
[2022-09-07] MEDS ORDERED: VANCOMYCIN 1G PREMIX 200 ML IV NR (12:30)
[2022-09-07] MEDS ORDERED: DOCUSATE SODIUM 100MG CAPSULE PO PRN (13:45)
[2022-09-07] MEDS ORDERED: ACETAMINOPHEN 325MG TABLET PO PRN (13:45)
[2022-09-07] MEDS ORDERED: ZOLPIDEM TARTRATE 5MG TABLET PO PRN (13:45)
[2022-09-07] MEDS ORDERED: NITROGLYCERIN 0.4MG TABLET SL SL PRN (13:45)
[2022-09-07] MEDS ORDERED: MAGNESIUM/ALUMINUM HYDROXIDE/SIMETHICONE 30ML UDC PO PRN (13:45)
[2022-09-07] MEDS ORDERED: IPRATROPIUM/ALBUTEROL 0.5-3(2.5)MG/3ML NEB NEB PRN (13:45)
[2022-09-07] MEDS ORDERED: ONDANSETRON HCL 4MG/2ML INJ IV PRN (13:45)
[2022-09-07] MEDS ORDERED: KETOROLAC 15MG/ML VIAL IV PRN (13:45)
[2022-09-07] MEDS ORDERED: GUAIFENESIN 200MG/10ML SUGAR FREE UDC PO PRN (13:45)
[2022-09-07] MEDS ORDERED: SODIUM CHLORIDE 0.9% 500 ML IV ONE ×2 (14:15)
[2022-09-07] MEDS ORDERED: LEVOFLOXACIN 500MG PREMIX 100 ML IV SCH (15:00)
[2022-09-07 15:01] LABS: VITAMIN B12 SERUM 754 pg/mL (211-911)
[2022-09-07 15:14] LABS: T4 FREE 1.09 ng/dL (0.76-1.46)
[2022-09-07] MEDS: DEXT 5%/LACTATED RINGERS 1,000 ML IV SCH (15:29)
[2022-09-07 15:43] LABS: *AMPHETAMINES SCREEN URINE NEGATIVE (NEGATIVE); *BARBITURATES SCREEN URINE NEGATIVE (NEGATIVE); *BENZODIAZEPINES SCREEN URINE NEGATIVE (NEGATIVE); *COCAINE SCREEN URINE NEGATIVE (NEGATIVE); CANNABINOID URINE SCREEN NEGATIVE (NEGATIVE); METHADONE URINE SCREEN NEGATIVE (NEGATIVE); OPIATES URINE SCREEN NEGATIVE (NEGATIVE); PHENCYCLIDINE URINE SCREEN NEGATIVE (NEGATIVE)
[2022-09-07] MEDS ORDERED: NOREPINEPHRINE 8 MG in DEXT 5% WATER 242 ML IV PRN ×2 (16:00→16:15)
[2022-09-07 17:06] LABS: BG CARBOXYHEMOGLOBIN 0.9 % (0.5-1.5); BG DEOXYHEMOGLOBIN 12.9 % (0.0-5.0); BG FRACTION INSPIRED OXYGEN 28; BG METHEMOGLOBIN 0.4 % (0.0-1.5); BG OXYGEN SATURATION 86.9 % (92.0-98.5); BG OXYHEMOGLOBIN 85.8 % (94.0-97.0); BG PH 6.759 (7.350-7.450); BG PO2 72.2 mmHg (75.0-100.0); BG SAMPLE SITE RIGHT RADIAL; BG TOTAL HEMOGLOBIN 9.1 g/dL (12.0-18.0); BG VENT MODE NASAL CANNULA
[2022-09-07 18:14] LABS: BG CARBOXYHEMOGLOBIN 0.8 % (0.5-1.5); BG DEOXYHEMOGLOBIN 5.2 % (0.0-5.0); BG FRACTION INSPIRED OXYGEN 40; BG METHEMOGLOBIN 0.5 % (0.0-1.5); BG OXYGEN SATURATION 94.7 % (92.0-98.5); BG OXYHEMOGLOBIN 93.5 % (94.0-97.0); BG PO2 105.4 mmHg (75.0-100.0); BG SAMPLE SITE RIGHT RADIAL; BG TOTAL HEMOGLOBIN 9.4 g/dL (12.0-18.0); BG VENT MODE NASAL CANNULA
[2022-09-07] MEDS ORDERED: IPRATROPIUM/ALBUTEROL 0.5-3(2.5)MG/3ML NEB HHN PRN (18:30)
[2022-09-07] MEDS ORDERED: FENTANYL CITRATE/PF 2,500 MCG in SODIUM CHLORIDE 0.9% 200 ML IV PRN (18:30)
[2022-09-07] MEDS ORDERED: PHENYLEPHRINE 100 MG in DEXT 5% WATER 240 ML IV PRN (18:45)
[2022-09-07] MEDS: METHYLPREDNISOLONE SOD SUCC 40 MG/ML VIAL IV SCH (19:03)
[2022-09-07] MEDS: IPRATROPIUM/ALBUTEROL 0.5-3(2.5)MG/3ML NEB HHN SCH (20:00)
[2022-09-07 20:05] LABS: BG BASE EXCESS 1.1 mmol/L (-2.0-2.0); BG CARBOXYHEMOGLOBIN 0.3 % (0.5-1.5); BG DEOXYHEMOGLOBIN 0.3 % (0.0-5.0); BG FRACTION INSPIRED OXYGEN 100; BG HCO3 ACT 25.2 mmol/L (22.0-26.0); BG METHEMOGLOBIN 0.1 % (0.0-1.5); BG OXYGEN SATURATION 99.7 % (92.0-98.5); BG OXYHEMOGLOBIN 99.3 % (94.0-97.0); BG PO2 327.6 mmHg (75.0-100.0); BG SAMPLE SITE RIGHT RADIAL; BG TOTAL HEMOGLOBIN 10.5 g/dL (12.0-18.0); BG VENT MODE VENT - AC
[2022-09-07] MEDS ORDERED: PROPOFOL 10MG/ML 100ML 100 ML IV PRN (21:00)
[2022-09-07] MEDS: ASCORBIC ACID 500 MG TABLET PO SCH (21:19)
[2022-09-07] MEDS: FAMOTIDINE 20MG TABLET PO SCH (21:19)
[2022-09-07] MEDS: ENOXAPARIN 40MG/0.4ML SYR SUBCUT SCH (21:20)
[2022-09-07 22:15] LABS: CREATINE KINASE 37 IU/L (26-192); CREATINE KINASE MB FRACTION 2.3 ng/mL (0.5-3.6)
[2022-09-07] MEDS: VANCOMYCIN 750MG PREMIX 150 ML IV SCH (22:32)
[2022-09-07] MEDS: PROPOFOL 10MG/ML 100ML 100 ML IV PRN (22:58)
[2022-09-08] VITALS (95 sets, daily range): BP systolic 85–163; BP diastolic 44–114
[2022-09-08 00:53] LABS: CREATINE KINASE MB FRACTION 2.4 ng/mL (0.5-3.6)
[2022-09-08] MEDS: IPRATROPIUM/ALBUTEROL 0.5-3(2.5)MG/3ML NEB HHN SCH ×6 (01:13→20:38)
[2022-09-08] MEDS: DEXT 5%/LACTATED RINGERS 1,000 ML IV SCH (03:17)
[2022-09-08] MEDS: METHYLPREDNISOLONE SOD SUCC 40 MG/ML VIAL IV SCH ×3 (03:17→18:44)
[2022-09-08 05:20] LABS: CHLORIDE 106 mEq/L (98-107)
[2022-09-08 05:25] LABS: BASOPHILS % 0.3 % (0.0-2.0); EOSINOPHILS % 0.1 % (0.0-5.0); HEMATOCRIT. 29.5 % (36.0-48.0); HEMOGLOBIN. 9.3 g/dL (12.0-16.0); LYMPHOCYTES % 11.2 % (20.0-50.0); MEAN CORPUSCULAR HEMOGLOBIN 29.5 pg (28.0-32.0); MEAN CORPUSCULAR VOLUME 93.8 fL (81.0-99.0); MEAN PLATELET VOLUME 8.7 fl (7.4-10.4); NEUTROPHILS % 82.4 % (40.0-76.0); PLATELET 187 x1000/uL (130-400); RED BLOOD CELL COUNT 3.15 mill/uL (4.2-5.4)
[2022-09-08 05:27] LABS: PHOSPHORUS 2.7 mg/dL (2.5-4.9)
[2022-09-08] MEDS: FAMOTIDINE 20MG TABLET PO SCH ×2 (08:29→20:57)
[2022-09-08] MEDS: ASCORBIC ACID 500 MG TABLET PO SCH ×2 (08:29→20:57)
[2022-09-08] MEDS: ASPIRIN 325MG EC TABLET PO SCH (08:29)
[2022-09-08] MEDS: ZINC SULFATE 220 MG ( 50 ) CAPSULE PO SCH (08:30)
[2022-09-08 08:55] LABS: BG BASE EXCESS 2.9 mmol/L (-2.0-2.0); BG CARBOXYHEMOGLOBIN 0.3 % (0.5-1.5); BG DEOXYHEMOGLOBIN 1.2 % (0.0-5.0); BG FRACTION INSPIRED OXYGEN 40; BG HCO3 ACT 27.4 mmol/L (22.0-26.0); BG METHEMOGLOBIN 0.3 % (0.0-1.5); BG OXYGEN SATURATION 98.8 % (92.0-98.5); BG OXYHEMOGLOBIN 98.2 % (94.0-97.0); BG PCO2 41.4 mmHg (35.0-45.0); BG PH 7.438 (7.350-7.450); BG PO2 147.3 mmHg (75.0-100.0); BG SAMPLE SITE RIGHT RADIAL; BG TOTAL HEMOGLOBIN 9.4 g/dL (12.0-18.0); BG VENT MODE VENT - AC
[2022-09-08] MEDS ORDERED: MAGNESIUM 1 G PREMIX 100 ML IV NR (09:30)
[2022-09-08] MEDS: PROPOFOL 10MG/ML 100ML 100 ML IV PRN ×2 (09:52→23:02)
[2022-09-08] MEDS: VANCOMYCIN 750MG PREMIX 150 ML IV SCH ×2 (09:56→22:51)
[2022-09-08] MEDS ORDERED: POTASSIUM CHLORIDE INJ 40 MEQ in DEXT 5% WATER 250 ML IV NR (11:00)
[2022-09-08] MEDS: LEVOFLOXACIN 500MG PREMIX 100 ML IV SCH (14:04)
[2022-09-08] MEDS: CEFEPIME 1,000 MG in DEXTROSE 5% WATER 50 ML IV SCH (17:16)
[2022-09-08] MEDS: DEXT 5%/0.45% NACL 1000ML 1,000 ML IV SCH (17:16)
[2022-09-08] MEDS: ENOXAPARIN 40MG/0.4ML SYR SUBCUT SCH (20:57)
[2022-09-09] VITALS (93 sets, daily range): BP systolic 116–176; BP diastolic 39–104
[2022-09-09] MEDS: IPRATROPIUM/ALBUTEROL 0.5-3(2.5)MG/3ML NEB HHN SCH ×6 (00:34→20:53)
[2022-09-09 04:51] LABS: HEMATOCRIT. 23.5 % (36.0-48.0); HEMOGLOBIN. 7.8 g/dL (12.0-16.0); MEAN CORPUSCULAR HEMOGLOBIN 29.9 pg (28.0-32.0); MEAN CORPUSCULAR VOLUME 89.6 fL (81.0-99.0); MEAN PLATELET VOLUME 8.8 fl (7.4-10.4); PLATELET 117 x1000/uL (130-400); RED BLOOD CELL COUNT 2.62 mill/uL (4.2-5.4); RED CELL DISTRIBUTION WIDTH 15.4 % (11.6-14.6)
[2022-09-09 04:57] LABS: CHLORIDE 103 mEq/L (98-107)
[2022-09-09 05:16] LABS: PHOSPHORUS 1.9 mg/dL (2.5-4.9)
[2022-09-09] MEDS: METHYLPREDNISOLONE SOD SUCC 40 MG/ML VIAL IV SCH ×3 (05:30→18:11)
[2022-09-09] MEDS: CEFEPIME 1,000 MG in DEXTROSE 5% WATER 50 ML IV SCH ×2 (05:30→18:11)
[2022-09-09] MEDS: DEXT 5%/0.45% NACL 1000ML 1,000 ML IV SCH ×2 (05:30→18:11)
[2022-09-09] MEDS: PROPOFOL 10MG/ML 100ML 100 ML IV PRN ×2 (07:29→23:49)
[2022-09-09] MEDS: ZINC SULFATE 220 MG ( 50 ) CAPSULE PO SCH (08:22)
[2022-09-09] MEDS: ASPIRIN 325MG EC TABLET PO SCH (08:22)
[2022-09-09] MEDS: ASCORBIC ACID 500 MG TABLET PO SCH ×2 (08:22→20:22)
[2022-09-09] MEDS: FAMOTIDINE 20MG TABLET PO SCH ×2 (08:22→20:22)
[2022-09-09 09:54] LABS: BG BASE EXCESS 1.1 mmol/L (-2.0-2.0); BG CARBOXYHEMOGLOBIN 0.5 % (0.5-1.5); BG DEOXYHEMOGLOBIN 0.6 % (0.0-5.0); BG FRACTION INSPIRED OXYGEN 40; BG HCO3 ACT 25.1 mmol/L (22.0-26.0); BG METHEMOGLOBIN 0.4 % (0.0-1.5); BG OXYGEN SATURATION 99.4 % (92.0-98.5); BG OXYHEMOGLOBIN 98.5 % (94.0-97.0); BG PCO2 37.4 mmHg (35.0-45.0); BG PH 7.445 (7.350-7.450); BG PO2 148.8 mmHg (75.0-100.0); BG SAMPLE SITE RIGHT RADIAL; BG TOTAL HEMOGLOBIN 8.4 g/dL (12.0-18.0); BG VENT MODE VENT - AC
[2022-09-09] MEDS: LEVOFLOXACIN 500MG PREMIX 100 ML IV SCH (13:02)
[2022-09-09] MEDS: HYDROXYCHLOROQUINE SULFATE 200MG TABLET PO SCH (13:57)
[2022-09-09] MEDS: CLONIDINE 0.1MG TABLET PO PRN (14:15)
[2022-09-09] MEDS: ENOXAPARIN 40MG/0.4ML SYR SUBCUT SCH (20:18)
[2022-09-09 20:52] LABS: PLATELET ESTIMATE DECREASED
[2022-09-09] MEDS ORDERED: PROPOFOL 10MG/ML 100ML 100 ML IV PRN (23:45)
[2022-09-10] VITALS (85 sets, daily range): BP systolic 134–171; BP diastolic 76–101
[2022-09-10] MEDS: IPRATROPIUM/ALBUTEROL 0.5-3(2.5)MG/3ML NEB HHN SCH ×7 (00:47→23:47)
[2022-09-10] MEDS: METHYLPREDNISOLONE SOD SUCC 40 MG/ML VIAL IV SCH ×3 (03:05→18:48)
[2022-09-10 04:34] LABS: BASOPHILS % 0.2 % (0.0-2.0); HEMATOCRIT. 21.8 % (36.0-48.0); HEMOGLOBIN. 7.1 g/dL (12.0-16.0); LYMPHOCYTES % 13.5 % (20.0-50.0); MEAN CORPUSCULAR HEMOGLOBIN 29.9 pg (28.0-32.0); MEAN CORPUSCULAR VOLUME 92.1 fL (81.0-99.0); MEAN PLATELET VOLUME 9.1 fl (7.4-10.4); MONOCYTES % 3.5 % (2.0-8.0); NEUTROPHILS % 82.8 % (40.0-76.0); PLATELET 112 x1000/uL (130-400); RED BLOOD CELL COUNT 2.36 mill/uL (4.2-5.4); RED CELL DISTRIBUTION WIDTH 15.8 % (11.6-14.6)
[2022-09-10 04:39] LABS: CHLORIDE 103 mEq/L (98-107)
[2022-09-10] MEDS: CEFEPIME 1,000 MG in DEXTROSE 5% WATER 50 ML IV SCH ×2 (05:02→18:48)
[2022-09-10] MEDS: DEXT 5%/0.45% NACL 1000ML 1,000 ML IV SCH ×2 (07:28→21:26)
[2022-09-10] MEDS: ASPIRIN 325MG EC TABLET PO SCH (09:07)
[2022-09-10] MEDS: HYDROXYCHLOROQUINE SULFATE 200MG TABLET PO SCH (09:07)
[2022-09-10] MEDS: FAMOTIDINE 20MG TABLET PO SCH ×2 (09:07→20:15)
[2022-09-10] MEDS: ASCORBIC ACID 500 MG TABLET PO SCH ×2 (09:07→20:15)
[2022-09-10] MEDS: ZINC SULFATE 220 MG ( 50 ) CAPSULE PO SCH (09:07)
[2022-09-10] MEDS: VANCOMYCIN 500MG PREMIX 100 ML IV SCH (09:15)
[2022-09-10] MEDS ORDERED: SODIUM CHL 0.9% + KCL 20MEQ/L 1,000 ML IV ONE (09:30)
[2022-09-10 09:53] LABS: BG BASE EXCESS 1.1 mmol/L (-2.0-2.0); BG CARBOXYHEMOGLOBIN 0.7 % (0.5-1.5); BG DEOXYHEMOGLOBIN 0.5 % (0.0-5.0); BG FRACTION INSPIRED OXYGEN 40; BG HCO3 ACT 24.6 mmol/L (22.0-26.0); BG METHEMOGLOBIN 0.3 % (0.0-1.5); BG OXYGEN SATURATION 99.5 % (92.0-98.5); BG OXYHEMOGLOBIN 98.5 % (94.0-97.0); BG PCO2 33.9 mmHg (35.0-45.0); BG PH 7.478 (7.350-7.450); BG SAMPLE SITE RIGHT RADIAL; BG TOTAL HEMOGLOBIN 7.3 g/dL (12.0-18.0); BG VENT MODE VENT - AC
[2022-09-10] MEDS ORDERED: POTASSIUM CHLORIDE INJ 40 MEQ in DEXT 5% WATER 250 ML IV ONE (11:00)
[2022-09-10] MEDS: LEVOFLOXACIN 500MG PREMIX 100 ML IV SCH (16:57)
[2022-09-11] VITALS (94 sets, daily range): BP systolic 116–173; BP diastolic 74–108
[2022-09-11] MEDS ORDERED: PROPOFOL 10MG/ML 100ML 100 ML IV PRN (00:15)
[2022-09-11] MEDS: METHYLPREDNISOLONE SOD SUCC 40 MG/ML VIAL IV SCH ×3 (02:43→19:55)
[2022-09-11] MEDS: CLONIDINE 0.1MG TABLET PO PRN ×2 (02:44→09:23)
[2022-09-11] MEDS: IPRATROPIUM/ALBUTEROL 0.5-3(2.5)MG/3ML NEB HHN SCH ×2 (03:48→08:46)
[2022-09-11] MEDS: CEFEPIME 1,000 MG in DEXTROSE 5% WATER 50 ML IV SCH ×2 (05:08→18:10)
[2022-09-11 06:01] LABS: HEMATOCRIT. 23.3 % (36.0-48.0); HEMOGLOBIN. 7.7 g/dL (12.0-16.0); LYMPHOCYTES % 10.6 % (20.0-50.0); MEAN CORPUSCULAR HEMOGLOBIN 29.6 pg (28.0-32.0); MEAN CORPUSCULAR VOLUME 89.7 fL (81.0-99.0); MEAN PLATELET VOLUME 8.6 fl (7.4-10.4); MONOCYTES % 4.1 % (2.0-8.0); NEUTROPHILS % 85.3 % (40.0-76.0); PLATELET 106 x1000/uL (130-400); RED CELL DISTRIBUTION WIDTH 15.6 % (11.6-14.6)
[2022-09-11 06:15] LABS: CHLORIDE 110 mEq/L (98-107)
[2022-09-11] MEDS ORDERED: GUAIFENESIN 600MG ER TABLET PO SCH (09:15)
[2022-09-11] MEDS: VANCOMYCIN 500MG PREMIX 100 ML IV SCH (09:22)
[2022-09-11] MEDS: HYDROXYCHLOROQUINE SULFATE 200MG TABLET PO SCH (09:22)
[2022-09-11] MEDS: ASCORBIC ACID 500 MG TABLET PO SCH ×2 (09:22→20:02)
[2022-09-11] MEDS: ASPIRIN 325MG EC TABLET PO SCH (09:22)
[2022-09-11] MEDS: FAMOTIDINE 20MG TABLET PO SCH ×2 (09:23→20:02)
[2022-09-11] MEDS: ZINC SULFATE 220 MG ( 50 ) CAPSULE PO SCH (09:23)
[2022-09-11] MEDS ORDERED: AMLODIPINE 5MG TABLET PO SCH (09:30)
[2022-09-11] MEDS: ALBUTEROL (0.083%) 2.5MG/3ML NEB HHN SCH ×3 (11:53→20:30)
[2022-09-11 13:14] LABS: BG BASE EXCESS -5.3 mmol/L (-2.0-2.0); BG CARBOXYHEMOGLOBIN 0.3 % (0.5-1.5); BG DEOXYHEMOGLOBIN 4.5 % (0.0-5.0); BG FRACTION INSPIRED OXYGEN 35; BG HCO3 ACT 21.5 mmol/L (22.0-26.0); BG METHEMOGLOBIN 0.4 % (0.0-1.5); BG OXYGEN SATURATION 95.5 % (92.0-98.5); BG OXYHEMOGLOBIN 94.8 % (94.0-97.0); BG PCO2 47.9 mmHg (35.0-45.0); BG PO2 92.7 mmHg (75.0-100.0); BG SAMPLE SITE RIGHT RADIAL; BG TOTAL HEMOGLOBIN 9.4 g/dL (12.0-18.0); BG VENT MODE T PIECE
[2022-09-11] MEDS: ACETYLCYSTEINE 200MG/ML 20% VIAL 4ML INH SCH (15:15)
[2022-09-11] MEDS: ENOXAPARIN 30MG/0.3ML SYR SUBCUT SCH (18:10)
[2022-09-11] MEDS ORDERED: MORPHINE SULFATE 2 MG/ML CPJ (NOT FOR IM USE) IV PRN (19:00)
[2022-09-11] MEDS ORDERED: LORAZEPAM 2MG/ML CPJ IV PRN (19:00)
[2022-09-12] VITALS (66 sets, daily range): BP systolic 109–160; BP diastolic 67–111
[2022-09-12] MEDS: ALBUTEROL (0.083%) 2.5MG/3ML NEB HHN SCH ×4 (00:43→11:41)
[2022-09-12] MEDS: ACETYLCYSTEINE 200MG/ML 20% VIAL 4ML INH SCH ×2 (00:43→09:04)
[2022-09-12] MEDS ORDERED: IOHEXOL-350 100 ML BOTTLE ONE (02:13)
[2022-09-12] MEDS: METHYLPREDNISOLONE SOD SUCC 40 MG/ML VIAL IV SCH ×3 (03:43→20:00)
[2022-09-12 05:28] LABS: BASOPHILS % 0.2 % (0.0-2.0); HEMATOCRIT. 23.1 % (36.0-48.0); HEMOGLOBIN. 7.7 g/dL (12.0-16.0); MEAN CORPUSCULAR HEMOGLOBIN 30.4 pg (28.0-32.0); MEAN PLATELET VOLUME 8.8 fl (7.4-10.4); MONOCYTES % 4.7 % (2.0-8.0); NEUTROPHILS % 87.1 % (40.0-76.0); PLATELET 109 x1000/uL (130-400); RED BLOOD CELL COUNT 2.51 mill/uL (4.2-5.4)
[2022-09-12] MEDS: CEFEPIME 1,000 MG in DEXTROSE 5% WATER 50 ML IV SCH ×2 (05:33→17:54)
[2022-09-12 05:51] LABS: CHLORIDE 109 mEq/L (98-107)
[2022-09-12 08:08] LABS: BG BASE EXCESS 0.6 mmol/L (-2.0-2.0); BG DEOXYHEMOGLOBIN 1.1 % (0.0-5.0); BG METHEMOGLOBIN 0.4 % (0.0-1.5); BG OXYGEN SATURATION 98.9 % (92.0-98.5); BG OXYHEMOGLOBIN 97.5 % (94.0-97.0); BG PCO2 45.7 mmHg (35.0-45.0); BG PH 7.373 (7.350-7.450); BG PO2 141.7 mmHg (75.0-100.0); BG SAMPLE SITE RIGHT BRACHIAL; BG TOTAL HEMOGLOBIN 8.2 g/dL (12.0-18.0); BG VENT MODE VENT - SIMV
[2022-09-12] MEDS: ZINC SULFATE 220 MG ( 50 ) CAPSULE PO SCH (10:43)
[2022-09-12] MEDS: HYDROXYCHLOROQUINE SULFATE 200MG TABLET PO SCH (10:43)
[2022-09-12] MEDS: ASCORBIC ACID 500 MG TABLET PO SCH ×2 (10:43→20:00)
[2022-09-12] MEDS: FAMOTIDINE 20MG TABLET PO SCH ×2 (10:43→20:01)
[2022-09-12] MEDS: AMLODIPINE 10MG TABLET PO SCH (10:44)
[2022-09-12] MEDS: DOCUSATE SODIUM SUGAR FREE 100MG/10ML UDC NG PRN (10:47)
[2022-09-12] MEDS: ASPIRIN 325MG TABLET PO SCH (13:44)
[2022-09-12] MEDS ORDERED: NALOXONE HCL 0.4MG/ML VIAL IV PRN (14:30)
[2022-09-12] MEDS: ENOXAPARIN 30MG/0.3ML SYR SUBCUT SCH (14:36)
[2022-09-12] MEDS: BUDESONIDE 0.5MG/2ML NEB HHN SCH (17:00)
[2022-09-12] MEDS: IPRATROPIUM/ALBUTEROL 0.5-3(2.5)MG/3ML NEB HHN SCH (21:16)
[2022-09-13] VITALS (40 sets, daily range): BP systolic 112–158; BP diastolic 67–89
[2022-09-13] MEDS: IPRATROPIUM/ALBUTEROL 0.5-3(2.5)MG/3ML NEB HHN SCH ×4 (01:45→20:30)
[2022-09-13] MEDS: METHYLPREDNISOLONE SOD SUCC 40 MG/ML VIAL IV SCH ×3 (03:30→18:01)
[2022-09-13 05:13] LABS: HEMATOCRIT. 23.2 % (36.0-48.0); HEMOGLOBIN. 7.7 g/dL (12.0-16.0); LYMPHOCYTES % 14.1 % (20.0-50.0); MEAN CORPUSCULAR HEMOGLOBIN 30.6 pg (28.0-32.0); MEAN CORPUSCULAR VOLUME 92.6 fL (81.0-99.0); MEAN PLATELET VOLUME 8.7 fl (7.4-10.4); MONOCYTES % 7.5 % (2.0-8.0); NEUTROPHILS % 78.4 % (40.0-76.0); PLATELET 129 x1000/uL (130-400); RED BLOOD CELL COUNT 2.51 mill/uL (4.2-5.4); RED CELL DISTRIBUTION WIDTH 15.2 % (11.6-14.6)
[2022-09-13] MEDS: CEFEPIME 1,000 MG in DEXTROSE 5% WATER 50 ML IV SCH ×2 (05:18→18:01)
[2022-09-13 05:34] LABS: CHLORIDE 111 mEq/L (98-107)
[2022-09-13] MEDS: ASCORBIC ACID 500 MG TABLET PO SCH ×2 (08:44→20:01)
[2022-09-13] MEDS: ZINC SULFATE 220 MG ( 50 ) CAPSULE PO SCH (08:44)
[2022-09-13] MEDS: ASPIRIN 325MG TABLET PO SCH (08:44)
[2022-09-13] MEDS: FAMOTIDINE 20MG TABLET PO SCH ×2 (08:44→20:01)
[2022-09-13] MEDS: HYDROXYCHLOROQUINE SULFATE 200MG TABLET PO SCH (08:44)
[2022-09-13] MEDS: AMLODIPINE 10MG TABLET PO SCH (08:45)
[2022-09-13] MEDS: BUDESONIDE 0.5MG/2ML NEB HHN SCH ×2 (09:08→20:30)
[2022-09-13 10:46] LABS: BG BASE EXCESS 0.5 mmol/L (-2.0-2.0); BG CARBOXYHEMOGLOBIN 0.1 % (0.5-1.5); BG DEOXYHEMOGLOBIN 0.9 % (0.0-5.0); BG FRACTION INSPIRED OXYGEN 40; BG HCO3 ACT 24.9 mmol/L (22.0-26.0); BG METHEMOGLOBIN 0.4 % (0.0-1.5); BG OXYGEN SATURATION 99.1 % (92.0-98.5); BG OXYHEMOGLOBIN 98.6 % (94.0-97.0); BG PCO2 38.8 mmHg (35.0-45.0); BG PH 7.425 (7.350-7.450); BG SAMPLE SITE RIGHT RADIAL; BG TOTAL HEMOGLOBIN 8.6 g/dL (12.0-18.0); BG VENT MODE VENT - SIMV
[2022-09-13] MEDS: ENOXAPARIN 30MG/0.3ML SYR SUBCUT SCH (14:38)
[2022-09-13 15:30] LABS: BG BASE EXCESS 0.7 mmol/L (-2.0-2.0); BG CARBOXYHEMOGLOBIN 0.3 % (0.5-1.5); BG DEOXYHEMOGLOBIN 2.1 % (0.0-5.0); BG FRACTION INSPIRED OXYGEN 35; BG HCO3 ACT 26.9 mmol/L (22.0-26.0); BG METHEMOGLOBIN 0.6 % (0.0-1.5); BG OXYGEN SATURATION 97.9 % (92.0-98.5); BG PCO2 51.6 mmHg (35.0-45.0); BG PH 7.335 (7.350-7.450); BG PO2 130.8 mmHg (75.0-100.0); BG SAMPLE SITE RIGHT RADIAL; BG TOTAL HEMOGLOBIN 9.1 g/dL (12.0-18.0); BG VENT MODE T PIECE
[2022-09-13] MEDS ORDERED: KCL 20MEQ/100ML PREMIX 100 ML IV SCH (23:00)
[2022-09-14] VITALS (43 sets, daily range): BP systolic 90–164; BP diastolic 58–97
[2022-09-14] MEDS: IPRATROPIUM/ALBUTEROL 0.5-3(2.5)MG/3ML NEB HHN SCH ×4 (02:11→20:11)
[2022-09-14] MEDS: METHYLPREDNISOLONE SOD SUCC 40 MG/ML VIAL IV SCH ×3 (02:18→19:28)
[2022-09-14 05:10] LABS: HEMOGLOBIN. 7.6 g/dL (12.0-16.0); LYMPHOCYTES % 8.6 % (20.0-50.0); MEAN CORPUSCULAR HEMOGLOBIN 29.9 pg (28.0-32.0); MEAN CORPUSCULAR VOLUME 90.7 fL (81.0-99.0); MEAN PLATELET VOLUME 8.8 fl (7.4-10.4); MONOCYTES % 7.9 % (2.0-8.0); NEUTROPHILS % 83.5 % (40.0-76.0); PLATELET 167 x1000/uL (130-400); RED BLOOD CELL COUNT 2.54 mill/uL (4.2-5.4); RED CELL DISTRIBUTION WIDTH 15.4 % (11.6-14.6)
[2022-09-14] MEDS: BUDESONIDE 0.5MG/2ML NEB HHN SCH ×2 (07:38→20:10)
[2022-09-14 08:33] LABS: BG BASE EXCESS 3.5 mmol/L (-2.0-2.0); BG CARBOXYHEMOGLOBIN 0.7 % (0.5-1.5); BG DEOXYHEMOGLOBIN 0.8 % (0.0-5.0); BG HCO3 ACT 26.8 mmol/L (22.0-26.0); BG METHEMOGLOBIN 0.4 % (0.0-1.5); BG OXYGEN SATURATION 99.2 % (92.0-98.5); BG OXYHEMOGLOBIN 98.1 % (94.0-97.0); BG PH 7.502 (7.350-7.450); BG PO2 196.9 mmHg (75.0-100.0); BG SAMPLE SITE RIGHT BRACHIAL; BG TOTAL HEMOGLOBIN 7.7 g/dL (12.0-18.0); BG VENT MODE VENT - SIMV
[2022-09-14 08:57] LABS: CHLORIDE 109 mEq/L (98-107)
[2022-09-14] MEDS ORDERED: ENOXAPARIN 40MG/0.4ML SYR SUBCUT SCH (09:00)
[2022-09-14] MEDS: HYDROXYCHLOROQUINE SULFATE 200MG TABLET PO SCH (09:32)
[2022-09-14] MEDS: FAMOTIDINE 20MG TABLET PO SCH ×2 (09:33→20:45)
[2022-09-14] MEDS: ZINC SULFATE 220 MG ( 50 ) CAPSULE PO SCH (09:33)
[2022-09-14] MEDS: AMLODIPINE 10MG TABLET PO SCH (09:33)
[2022-09-14] MEDS: ASCORBIC ACID 500 MG TABLET PO SCH ×2 (09:33→20:45)
[2022-09-14] MEDS: ASPIRIN 325MG TABLET PO SCH (10:10)
[2022-09-14] MEDS: DOCUSATE SODIUM SUGAR FREE 100MG/10ML UDC NG PRN (10:11)
[2022-09-14] MEDS: ENOXAPARIN 30MG/0.3ML SYR SUBCUT SCH (13:00)
[2022-09-14 13:36] LABS: BG BASE EXCESS 1.8 mmol/L (-2.0-2.0); BG CARBOXYHEMOGLOBIN 0.3 % (0.5-1.5); BG DEOXYHEMOGLOBIN 1.3 % (0.0-5.0); BG HCO3 ACT 28.2 mmol/L (22.0-26.0); BG METHEMOGLOBIN 0.3 % (0.0-1.5); BG OXYGEN SATURATION 98.7 % (92.0-98.5); BG OXYHEMOGLOBIN 98.1 % (94.0-97.0); BG PCO2 54.3 mmHg (35.0-45.0); BG PH 7.333 (7.350-7.450); BG SAMPLE SITE LEFT RADIAL; BG TOTAL HEMOGLOBIN 8.4 g/dL (12.0-18.0); BG VENT MODE VENT - SIMV
[2022-09-14 21:48] LABS: BG BASE EXCESS 3.7 mmol/L (-2.0-2.0); BG CARBOXYHEMOGLOBIN 0.4 % (0.5-1.5); BG DEOXYHEMOGLOBIN 0.9 % (0.0-5.0); BG FRACTION INSPIRED OXYGEN 40; BG HCO3 ACT 27.8 mmol/L (22.0-26.0); BG METHEMOGLOBIN 0.4 % (0.0-1.5); BG OXYGEN SATURATION 99.1 % (92.0-98.5); BG OXYHEMOGLOBIN 98.3 % (94.0-97.0); BG PCO2 39.6 mmHg (35.0-45.0); BG PH 7.464 (7.350-7.450); BG PO2 184.6 mmHg (75.0-100.0); BG SAMPLE SITE RIGHT RADIAL; BG TOTAL HEMOGLOBIN 8.1 g/dL (12.0-18.0); BG VENT MODE VENT - SIMV
[2022-09-15] VITALS (46 sets, daily range): BP systolic 102–146; BP diastolic 66–94
[2022-09-15 00:02] LABS: CHLORIDE 108 mEq/L (98-107)
[2022-09-15 00:19] LABS: HEMATOCRIT. 23.7 % (36.0-48.0); HEMOGLOBIN. 7.7 g/dL (12.0-16.0); MEAN CORPUSCULAR HEMOGLOBIN 29.7 pg (28.0-32.0); MEAN CORPUSCULAR VOLUME 90.8 fL (81.0-99.0); MEAN PLATELET VOLUME 8.7 fl (7.4-10.4); PLATELET 215 x1000/uL (130-400); RED BLOOD CELL COUNT 2.61 mill/uL (4.2-5.4); RED CELL DISTRIBUTION WIDTH 15.3 % (11.6-14.6)
[2022-09-15] MEDS: IPRATROPIUM/ALBUTEROL 0.5-3(2.5)MG/3ML NEB HHN SCH ×4 (00:32→20:37)
[2022-09-15 01:47] LABS: PLATELET ESTIMATE NORMAL
[2022-09-15] MEDS: METHYLPREDNISOLONE SOD SUCC 40 MG/ML VIAL IV SCH ×3 (02:55→18:39)
[2022-09-15 05:12] LABS: BASOPHILS % 0.1 % (0.0-2.0); LYMPHOCYTES % 10.4 % (20.0-50.0); MEAN CORPUSCULAR HEMOGLOBIN 29.4 pg (28.0-32.0); MEAN CORPUSCULAR VOLUME 92.4 fL (81.0-99.0); MEAN PLATELET VOLUME 8.8 fl (7.4-10.4); MONOCYTES % 6.9 % (2.0-8.0); NEUTROPHILS % 82.6 % (40.0-76.0); PLATELET 205 x1000/uL (130-400); RED BLOOD CELL COUNT 2.71 mill/uL (4.2-5.4); RED CELL DISTRIBUTION WIDTH 15.5 % (11.6-14.6)
[2022-09-15 05:33] LABS: CHLORIDE 109 mEq/L (98-107)
[2022-09-15 05:51] LABS: PHOSPHORUS 2.2 mg/dL (2.5-4.9)
[2022-09-15] MEDS: BUDESONIDE 0.5MG/2ML NEB HHN SCH ×2 (07:37→20:37)
[2022-09-15 08:51] LABS: BG BASE EXCESS 4.8 mmol/L (-2.0-2.0); BG FRACTION INSPIRED OXYGEN 30; BG HCO3 ACT 28.8 mmol/L (22.0-26.0); BG METHEMOGLOBIN 0.4 % (0.0-1.5); BG OXYHEMOGLOBIN 97.6 % (94.0-97.0); BG PCO2 39.6 mmHg (35.0-45.0); BG PH 7.479 (7.350-7.450); BG PO2 154.6 mmHg (75.0-100.0); BG SAMPLE SITE RIGHT RADIAL; BG TOTAL HEMOGLOBIN 7.4 g/dL (12.0-18.0); BG VENT MODE VENT - SIMV
[2022-09-15] MEDS: DOCUSATE SODIUM SUGAR FREE 100MG/10ML UDC NG PRN (09:08)
[2022-09-15] MEDS: ASCORBIC ACID 500 MG TABLET PO SCH ×2 (09:09→21:25)
[2022-09-15] MEDS: ZINC SULFATE 220 MG ( 50 ) CAPSULE PO SCH (09:09)
[2022-09-15] MEDS: HYDROXYCHLOROQUINE SULFATE 200MG TABLET PO SCH (09:09)
[2022-09-15] MEDS: AMLODIPINE 10MG TABLET PO SCH (09:09)
[2022-09-15] MEDS: FAMOTIDINE 20MG TABLET PO SCH ×2 (09:09→21:25)
[2022-09-15] MEDS: ASPIRIN 325MG TABLET PO SCH (09:26)
[2022-09-15] MEDS ORDERED: SODIUM PHOS,M-BASIC-D-BASIC 15 MM in DEXT 5% WATER 245 ML IV NR (11:00)
[2022-09-15] MEDS: ENOXAPARIN 30MG/0.3ML SYR SUBCUT SCH (14:29)
[2022-09-16] VITALS (26 sets, daily range): BP systolic 93–138; BP diastolic 52–87
[2022-09-16] MEDS: IPRATROPIUM/ALBUTEROL 0.5-3(2.5)MG/3ML NEB HHN SCH ×4 (02:05→20:14)
[2022-09-16] MEDS: METHYLPREDNISOLONE SOD SUCC 40 MG/ML VIAL IV SCH ×3 (02:24→21:10)
[2022-09-16 05:16] LABS: CHLORIDE 105 mEq/L (98-107)
[2022-09-16 05:19] LABS: HEMATOCRIT. 23.6 % (36.0-48.0); HEMOGLOBIN. 7.7 g/dL (12.0-16.0); MEAN CORPUSCULAR HEMOGLOBIN 29.6 pg (28.0-32.0); MEAN CORPUSCULAR VOLUME 90.4 fL (81.0-99.0); MEAN PLATELET VOLUME 8.7 fl (7.4-10.4); PLATELET 276 x1000/uL (130-400); RED BLOOD CELL COUNT 2.61 mill/uL (4.2-5.4); RED CELL DISTRIBUTION WIDTH 15.5 % (11.6-14.6)
[2022-09-16 05:26] LABS: PHOSPHORUS 3.2 mg/dL (2.5-4.9)
[2022-09-16 08:01] LABS: PLATELET ESTIMATE NORMAL
[2022-09-16 08:45] LABS: BG BASE EXCESS 2.9 mmol/L (-2.0-2.0); BG CARBOXYHEMOGLOBIN 0.4 % (0.5-1.5); BG DEOXYHEMOGLOBIN 1.7 % (0.0-5.0); BG HCO3 ACT 27.1 mmol/L (22.0-26.0); BG METHEMOGLOBIN 0.3 % (0.0-1.5); BG OXYGEN SATURATION 98.3 % (92.0-98.5); BG OXYHEMOGLOBIN 97.6 % (94.0-97.0); BG PCO2 39.8 mmHg (35.0-45.0); BG PH 7.451 (7.350-7.450); BG SAMPLE SITE RIGHT RADIAL; BG TOTAL HEMOGLOBIN 7.8 g/dL (12.0-18.0); BG VENT MODE VENT - SIMV
[2022-09-16] MEDS: ASPIRIN 325MG TABLET PO SCH (09:00)
[2022-09-16] MEDS: AMLODIPINE 10MG TABLET PO SCH (09:00)
[2022-09-16] MEDS: ZINC SULFATE 220 MG ( 50 ) CAPSULE PO SCH (09:38)
[2022-09-16] MEDS: FAMOTIDINE 20MG TABLET PO SCH ×2 (09:38→21:11)
[2022-09-16] MEDS: ASCORBIC ACID 500 MG TABLET PO SCH ×2 (09:38→21:10)
[2022-09-16] MEDS: HYDROXYCHLOROQUINE SULFATE 200MG TABLET PO SCH (09:38)
[2022-09-16] MEDS: ENOXAPARIN 30MG/0.3ML SYR SUBCUT SCH (14:00)
[2022-09-17] VITALS (36 sets, daily range): BP systolic 93–132; BP diastolic 55–96
[2022-09-17] MEDS: IPRATROPIUM/ALBUTEROL 0.5-3(2.5)MG/3ML NEB HHN SCH ×4 (02:21→20:40)
[2022-09-17 05:46] LABS: BASOPHILS % 0.1 % (0.0-2.0); HEMATOCRIT. 23.2 % (36.0-48.0); HEMOGLOBIN. 7.7 g/dL (12.0-16.0); LYMPHOCYTES % 8.7 % (20.0-50.0); MEAN CORPUSCULAR VOLUME 90.5 fL (81.0-99.0); MEAN PLATELET VOLUME 8.7 fl (7.4-10.4); MONOCYTES % 8.9 % (2.0-8.0); NEUTROPHILS % 82.3 % (40.0-76.0); PLATELET 362 x1000/uL (130-400); RED BLOOD CELL COUNT 2.57 mill/uL (4.2-5.4); RED CELL DISTRIBUTION WIDTH 15.5 % (11.6-14.6)
[2022-09-17 05:59] LABS: CHLORIDE 106 mEq/L (98-107)
[2022-09-17 08:13] LABS: BG BASE EXCESS 3.6 mmol/L (-2.0-2.0); BG CARBOXYHEMOGLOBIN 0.8 % (0.5-1.5); BG DEOXYHEMOGLOBIN 1.6 % (0.0-5.0); BG HCO3 ACT 27.3 mmol/L (22.0-26.0); BG METHEMOGLOBIN 0.5 % (0.0-1.5); BG OXYGEN SATURATION 98.4 % (92.0-98.5); BG OXYHEMOGLOBIN 97.1 % (94.0-97.0); BG PCO2 37.3 mmHg (35.0-45.0); BG PH 7.482 (7.350-7.450); BG PO2 123.5 mmHg (75.0-100.0); BG SAMPLE SITE RIGHT RADIAL; BG TOTAL HEMOGLOBIN 7.2 g/dL (12.0-18.0); BG VENT MODE VENT - SIMV
[2022-09-17] MEDS: ASCORBIC ACID 500 MG TABLET PO SCH ×2 (08:44→21:00)
[2022-09-17] MEDS: ZINC SULFATE 220 MG ( 50 ) CAPSULE PO SCH (08:44)
[2022-09-17] MEDS: FAMOTIDINE 20MG TABLET PO SCH ×2 (08:44→23:14)
[2022-09-17] MEDS: HYDROXYCHLOROQUINE SULFATE 200MG TABLET PO SCH (08:44)
[2022-09-17] MEDS: METHYLPREDNISOLONE SOD SUCC 40 MG/ML VIAL IV SCH ×2 (08:44→20:57)
[2022-09-17] MEDS: ASPIRIN 325MG TABLET PO SCH (08:44)
[2022-09-17] MEDS: AMLODIPINE 10MG TABLET PO SCH (08:46)
[2022-09-17] MEDS: BUDESONIDE 0.5MG/2ML NEB HHN SCH (20:40)
[2022-09-17] MEDS: ENOXAPARIN 30MG/0.3ML SYR SUBCUT SCH (20:59)
[2022-09-18] VITALS (21 sets, daily range): BP systolic 90–126; BP diastolic 54–88
[2022-09-18] MEDS: IPRATROPIUM/ALBUTEROL 0.5-3(2.5)MG/3ML NEB HHN SCH ×3 (02:36→14:31)
[2022-09-18 04:51] LABS: BASOPHILS % 0.1 % (0.0-2.0); EOSINOPHILS % 1.2 % (0.0-5.0); HEMATOCRIT. 23.5 % (36.0-48.0); HEMOGLOBIN. 7.6 g/dL (12.0-16.0); LYMPHOCYTES % 10.8 % (20.0-50.0); MEAN CORPUSCULAR HEMOGLOBIN 29.4 pg (28.0-32.0); MEAN CORPUSCULAR VOLUME 90.7 fL (81.0-99.0); MEAN PLATELET VOLUME 8.6 fl (7.4-10.4); MONOCYTES % 7.4 % (2.0-8.0); NEUTROPHILS % 80.5 % (40.0-76.0); PLATELET 396 x1000/uL (130-400); RED BLOOD CELL COUNT 2.59 mill/uL (4.2-5.4); RED CELL DISTRIBUTION WIDTH 15.7 % (11.6-14.6)
[2022-09-18 05:05] LABS: CHLORIDE 103 mEq/L (98-107)
[2022-09-18 05:18] LABS: PHOSPHORUS 3.4 mg/dL (2.5-4.9)
[2022-09-18] MEDS: BUDESONIDE 0.5MG/2ML NEB HHN SCH ×2 (08:50→20:32)
[2022-09-18] MEDS: ZINC SULFATE 220 MG ( 50 ) CAPSULE PO SCH (09:13)
[2022-09-18] MEDS: AMLODIPINE 10MG TABLET PO SCH (09:13)
[2022-09-18] MEDS: FAMOTIDINE 20MG TABLET PO SCH ×2 (09:13→22:06)
[2022-09-18] MEDS: METHYLPREDNISOLONE SOD SUCC 40 MG/ML VIAL IV SCH ×2 (09:14→22:07)
[2022-09-18] MEDS: ASCORBIC ACID 500 MG TABLET PO SCH ×2 (09:14→21:00)
[2022-09-18] MEDS: HYDROXYCHLOROQUINE SULFATE 200MG TABLET PO SCH (09:14)
[2022-09-18] MEDS: ASPIRIN 325MG TABLET PO SCH (09:14)
[2022-09-18 09:37] LABS: BG BASE EXCESS 3.9 mmol/L (-2.0-2.0); BG CARBOXYHEMOGLOBIN 0.3 % (0.5-1.5); BG DEOXYHEMOGLOBIN 1.7 % (0.0-5.0); BG FRACTION INSPIRED OXYGEN 30; BG HCO3 ACT 28.5 mmol/L (22.0-26.0); BG METHEMOGLOBIN 0.3 % (0.0-1.5); BG OXYGEN SATURATION 98.3 % (92.0-98.5); BG OXYHEMOGLOBIN 97.7 % (94.0-97.0); BG PCO2 43.4 mmHg (35.0-45.0); BG PH 7.435 (7.350-7.450); BG PO2 117.7 mmHg (75.0-100.0); BG SAMPLE SITE RIGHT RADIAL; BG TOTAL HEMOGLOBIN 8.2 g/dL (12.0-18.0); BG VENT MODE VENT - SIMV
[2022-09-18 10:33] LABS: BG BASE EXCESS 4.5 mmol/L (-2.0-2.0); BG CARBOXYHEMOGLOBIN 0.1 % (0.5-1.5); BG DEOXYHEMOGLOBIN 0.8 % (0.0-5.0); BG FRACTION INSPIRED OXYGEN 40; BG HCO3 ACT 30.3 mmol/L (22.0-26.0); BG METHEMOGLOBIN 0.4 % (0.0-1.5); BG OXYGEN SATURATION 99.2 % (92.0-98.5); BG OXYHEMOGLOBIN 98.7 % (94.0-97.0); BG PCO2 51.6 mmHg (35.0-45.0); BG PH 7.387 (7.350-7.450); BG PO2 162.1 mmHg (75.0-100.0); BG SAMPLE SITE RIGHT BRACHIAL; BG TOTAL HEMOGLOBIN 9.7 g/dL (12.0-18.0); BG VENT MODE VENT - CPAP
[2022-09-18] MEDS: ENOXAPARIN 30MG/0.3ML SYR SUBCUT SCH (14:00)
[2022-09-19] VITALS (20 sets, daily range): BP systolic 98–125; BP diastolic 52–78
[2022-09-19 05:58] LABS: HEMATOCRIT. 25.4 % (36.0-48.0); HEMOGLOBIN. 8.2 g/dL (12.0-16.0); MEAN CORPUSCULAR HEMOGLOBIN 29.4 pg (28.0-32.0); MEAN CORPUSCULAR VOLUME 91.5 fL (81.0-99.0); MEAN PLATELET VOLUME 9.1 fl (7.4-10.4); PLATELET 415 x1000/uL (130-400); RED BLOOD CELL COUNT 2.78 mill/uL (4.2-5.4); RED CELL DISTRIBUTION WIDTH 16.3 % (11.6-14.6)
[2022-09-19 07:12] LABS: CHLORIDE 101 mEq/L (98-107)
[2022-09-19 08:18] LABS: BG BASE EXCESS 8.2 mmol/L (-2.0-2.0); BG CARBOXYHEMOGLOBIN 0.8 % (0.5-1.5); BG DEOXYHEMOGLOBIN 0.9 % (0.0-5.0); BG HCO3 ACT 33.2 mmol/L (22.0-26.0); BG METHEMOGLOBIN 0.4 % (0.0-1.5); BG OXYGEN SATURATION 99.1 % (92.0-98.5); BG OXYHEMOGLOBIN 97.9 % (94.0-97.0); BG PCO2 49.7 mmHg (35.0-45.0); BG PH 7.443 (7.350-7.450); BG PO2 186.6 mmHg (75.0-100.0); BG SAMPLE SITE RIGHT BRACHIAL; BG TOTAL HEMOGLOBIN 8.2 g/dL (12.0-18.0); BG VENT MODE MASK - BIPAP
[2022-09-19] MEDS ORDERED: SODIUM POLYSTYRENE SULFONATE 15 G/60 ML BOT PO NR (09:30)
[2022-09-19] MEDS: BUDESONIDE 0.5MG/2ML NEB HHN SCH (09:44)
[2022-09-19] MEDS: HYDROXYCHLOROQUINE SULFATE 200MG TABLET PO SCH (09:44)
[2022-09-19] MEDS: ASCORBIC ACID 500 MG TABLET PO SCH ×2 (09:44→22:59)
[2022-09-19] MEDS: FAMOTIDINE 20MG TABLET PO SCH ×2 (09:44→22:59)
[2022-09-19] MEDS: ASPIRIN 325MG TABLET PO SCH (09:44)
[2022-09-19] MEDS: ZINC SULFATE 220 MG ( 50 ) CAPSULE PO SCH (09:45)
[2022-09-19] MEDS: METHYLPREDNISOLONE SOD SUCC 40 MG/ML VIAL IV SCH ×2 (09:46→22:59)
[2022-09-19 13:24] LABS: PLATELET ESTIMATE NORMAL
[2022-09-19] MEDS: ENOXAPARIN 30MG/0.3ML SYR SUBCUT SCH (14:00)
[2022-09-19] MEDS ORDERED: IPRATROPIUM/ALBUTEROL 0.5-3(2.5)MG/3ML NEB HHN SCH (18:00)
[2022-09-20] VITALS (16 sets, daily range): BP systolic 100–145; BP diastolic 55–89
[2022-09-20] MEDS: ALBUTEROL (0.083%) 2.5MG/3ML NEB HHN SCH ×4 (05:26→20:54)
[2022-09-20] MEDS: IPRATROPIUM BROMIDE (0.02%) 0.5MG/2.5ML NEB HHN SCH ×4 (05:27→20:54)
[2022-09-20 06:45] LABS: HEMATOCRIT 25.9 % (36.0-48.0); HEMOGLOBIN 8.3 g/dL (12.0-16.0); MEAN CORPUSCULAR HEMOGLOBIN 29.1 pg (28.0-32.0); PLATELET 465 x1000/uL (130-400); RED BLOOD CELL COUNT 2.85 mill/uL (4.2-5.4); RED CELL DISTRIBUTION WIDTH 16.4 % (11.6-14.6)
[2022-09-20 07:01] LABS: CHLORIDE 103 mEq/L (98-107)
[2022-09-20] MEDS: BUDESONIDE 0.5MG/2ML NEB HHN SCH ×2 (08:45→20:54)
[2022-09-20] MEDS: ASPIRIN 325MG TABLET PO SCH (09:31)
[2022-09-20 09:32] LABS: BG BASE EXCESS 8.2 mmol/L (-2.0-2.0); BG CARBOXYHEMOGLOBIN 0.5 % (0.5-1.5); BG DEOXYHEMOGLOBIN 2.8 % (0.0-5.0); BG FRACTION INSPIRED OXYGEN 35; BG HCO3 ACT 35.6 mmol/L (22.0-26.0); BG METHEMOGLOBIN 0.4 % (0.0-1.5); BG OXYGEN SATURATION 97.2 % (92.0-98.5); BG OXYHEMOGLOBIN 96.3 % (94.0-97.0); BG PCO2 67.6 mmHg (35.0-45.0); BG PH 7.339 (7.350-7.450); BG PO2 106.8 mmHg (75.0-100.0); BG SAMPLE SITE RIGHT BRACHIAL; BG TOTAL HEMOGLOBIN 9.5 g/dL (12.0-18.0); BG VENT MODE COOL AEROSOL
[2022-09-20] MEDS: METHYLPREDNISOLONE SOD SUCC 40 MG/ML VIAL IV SCH (09:32)
[2022-09-20] MEDS: FAMOTIDINE 20MG TABLET PO SCH ×2 (09:32→20:53)
[2022-09-20] MEDS: HYDROXYCHLOROQUINE SULFATE 200MG TABLET PO SCH (09:32)
[2022-09-20] MEDS: ZINC SULFATE 220 MG ( 50 ) CAPSULE PO SCH (09:32)
[2022-09-20] MEDS: ASCORBIC ACID 500 MG TABLET PO SCH ×2 (09:33→21:43)
[2022-09-20] MEDS ORDERED: SODIUM CHLORIDE 0.45% 1,000 ML IV ONE (11:15)
[2022-09-20] MEDS: ENOXAPARIN 30MG/0.3ML SYR SUBCUT SCH (14:11)
[2022-09-21] VITALS (15 sets, daily range): BP systolic 100–136; BP diastolic 59–85
[2022-09-21] MEDS: ALBUTEROL (0.083%) 2.5MG/3ML NEB HHN SCH ×4 (01:46→21:30)
[2022-09-21] MEDS: IPRATROPIUM BROMIDE (0.02%) 0.5MG/2.5ML NEB HHN SCH ×4 (02:24→21:30)
[2022-09-21 06:29] LABS: HEMATOCRIT 23.9 % (36.0-48.0); HEMOGLOBIN 7.9 g/dL (12.0-16.0); MEAN CORPUSCULAR HEMOGLOBIN 29.9 pg (28.0-32.0); MEAN CORPUSCULAR VOLUME 90.8 fL (81.0-99.0); PLATELET 417 x1000/uL (130-400); RED BLOOD CELL COUNT 2.63 mill/uL (4.2-5.4); RED CELL DISTRIBUTION WIDTH 16.2 % (11.6-14.6)
[2022-09-21 07:41] LABS: CHLORIDE 101 mEq/L (98-107)
[2022-09-21] MEDS: BUDESONIDE 0.5MG/2ML NEB HHN SCH (07:59)
[2022-09-21 09:28] LABS: BG BASE EXCESS 7.8 mmol/L (-2.0-2.0); BG FRACTION INSPIRED OXYGEN 35; BG HCO3 ACT 33.4 mmol/L (22.0-26.0); BG METHEMOGLOBIN 0.4 % (0.0-1.5); BG OXYHEMOGLOBIN 96.6 % (94.0-97.0); BG PCO2 53.8 mmHg (35.0-45.0); BG PH 7.411 (7.350-7.450); BG PO2 101.8 mmHg (75.0-100.0); BG SAMPLE SITE LEFT RADIAL; BG TOTAL HEMOGLOBIN 8.6 g/dL (12.0-18.0); BG TOTAL RESPIRATORY RATE 34 b/min; BG VENT MODE MASK - BIPAP
[2022-09-21] MEDS: FAMOTIDINE 20MG TABLET PO SCH ×2 (09:51→21:22)
[2022-09-21] MEDS: ASCORBIC ACID 500 MG TABLET PO SCH ×2 (09:51→21:22)
[2022-09-21] MEDS: HYDROXYCHLOROQUINE SULFATE 200MG TABLET PO SCH (09:51)
[2022-09-21] MEDS: ZINC SULFATE 220 MG ( 50 ) CAPSULE PO SCH (09:51)
[2022-09-21] MEDS: ASPIRIN 325MG TABLET PO SCH (09:52)
[2022-09-21] MEDS: ACETAMINOPHEN 325MG TABLET PO PRN (09:52)
[2022-09-21] MEDS: ENOXAPARIN 30MG/0.3ML SYR SUBCUT SCH (14:00)
[2022-09-21] MEDS ORDERED: SODIUM CHLORIDE 0.45% 500 ML IV ONE (18:00)
[2022-09-22] VITALS (11 sets, daily range): BP systolic 101–130; BP diastolic 71–88
[2022-09-22] MEDS: IPRATROPIUM BROMIDE (0.02%) 0.5MG/2.5ML NEB HHN SCH ×4 (01:46→21:00)
[2022-09-22] MEDS: ACETAMINOPHEN 325MG TABLET PO PRN (05:45)
[2022-09-22 06:56] LABS: HEMATOCRIT 25.9 % (36.0-48.0); HEMOGLOBIN 8.5 g/dL (12.0-16.0); MEAN CORPUSCULAR HEMOGLOBIN 29.7 pg (28.0-32.0); MEAN CORPUSCULAR VOLUME 90.7 fL (81.0-99.0); PLATELET 401 x1000/uL (130-400); RED BLOOD CELL COUNT 2.86 mill/uL (4.2-5.4); RED CELL DISTRIBUTION WIDTH 16.6 % (11.6-14.6)
[2022-09-22] MEDS: ASPIRIN 325MG TABLET PO SCH ×2 (09:00→11:03)
[2022-09-22] MEDS: ALBUTEROL (0.083%) 2.5MG/3ML NEB HHN SCH ×3 (09:12→21:00)
[2022-09-22 09:15] LABS: CHLORIDE 101 mEq/L (98-107)
[2022-09-22] MEDS: HYDROXYCHLOROQUINE SULFATE 200MG TABLET PO SCH (09:41)
[2022-09-22] MEDS: FAMOTIDINE 20MG TABLET PO SCH ×2 (09:41→21:19)
[2022-09-22] MEDS: ZINC SULFATE 220 MG ( 50 ) CAPSULE PO SCH (09:41)
[2022-09-22] MEDS: ASCORBIC ACID 500 MG TABLET PO SCH ×2 (09:41→21:19)
[2022-09-22] MEDS ORDERED: SODIUM CHLORIDE 0.45% 1,000 ML IV ONE (12:00)
[2022-09-22] MEDS: ENOXAPARIN 30MG/0.3ML SYR SUBCUT SCH (13:13)
[2022-09-22 15:55] LABS: BG BASE EXCESS 4.4 mmol/L (-2.0-2.0); BG CARBOXYHEMOGLOBIN 0.4 % (0.5-1.5); BG DEOXYHEMOGLOBIN 5.2 % (0.0-5.0); BG HCO3 ACT 29.3 mmol/L (22.0-26.0); BG METHEMOGLOBIN 0.3 % (0.0-1.5); BG OXYGEN SATURATION 94.8 % (92.0-98.5); BG OXYHEMOGLOBIN 94.1 % (94.0-97.0); BG PCO2 45.9 mmHg (35.0-45.0); BG PH 7.423 (7.350-7.450); BG PO2 77.9 mmHg (75.0-100.0); BG SAMPLE SITE RIGHT BRACHIAL; BG TOTAL HEMOGLOBIN 8.9 g/dL (12.0-18.0); BG VENT MODE NASAL CANNULA
[2022-09-23] VITALS (13 sets, daily range): BP systolic 85–116; BP diastolic 51–77
[2022-09-23] MEDS: ALBUTEROL (0.083%) 2.5MG/3ML NEB HHN SCH (02:34)
[2022-09-23] MEDS: IPRATROPIUM BROMIDE (0.02%) 0.5MG/2.5ML NEB HHN SCH ×2 (02:35→09:06)
[2022-09-23] MEDS: HYDROXYCHLOROQUINE SULFATE 200MG TABLET PO SCH (08:36)
[2022-09-23] MEDS: ZINC SULFATE 220 MG ( 50 ) CAPSULE PO SCH (08:36)
[2022-09-23] MEDS: FAMOTIDINE 20MG TABLET PO SCH ×2 (08:36→20:32)
[2022-09-23] MEDS: ASPIRIN 325MG TABLET PO SCH (08:36)
[2022-09-23] MEDS: ASCORBIC ACID 500 MG TABLET PO SCH ×2 (08:36→20:32)
[2022-09-23 08:43] LABS: BASOPHILS % 0.3 % (0.0-2.0); EOSINOPHILS % 1.2 % (0.0-5.0); HEMATOCRIT. 24.7 % (36.0-48.0); LYMPHOCYTES % 13.9 % (20.0-50.0); MEAN CORPUSCULAR HEMOGLOBIN 29.9 pg (28.0-32.0); MEAN PLATELET VOLUME 9.2 fl (7.4-10.4); NEUTROPHILS % 79.6 % (40.0-76.0); PLATELET 362 x1000/uL (130-400); RED BLOOD CELL COUNT 2.69 mill/uL (4.2-5.4); RED CELL DISTRIBUTION WIDTH 16.8 % (11.6-14.6)
[2022-09-23] MEDS ORDERED: IPRATROPIUM BROMIDE (0.02%) 0.5MG/2.5ML NEB HHN PRN (08:45)
[2022-09-23] MEDS ORDERED: ALBUTEROL (0.083%) 2.5MG/3ML NEB HHN PRN (08:45)
[2022-09-23 08:48] LABS: BG CARBOXYHEMOGLOBIN 0.5 % (0.5-1.5); BG DEOXYHEMOGLOBIN 4.1 % (0.0-5.0); BG FRACTION INSPIRED OXYGEN 35; BG HCO3 ACT 28.5 mmol/L (22.0-26.0); BG METHEMOGLOBIN 0.4 % (0.0-1.5); BG OXYGEN SATURATION 95.9 % (92.0-98.5); BG PCO2 48.7 mmHg (35.0-45.0); BG PH 7.385 (7.350-7.450); BG PO2 86.7 mmHg (75.0-100.0); BG SAMPLE SITE LEFT RADIAL; BG TOTAL HEMOGLOBIN 7.8 g/dL (12.0-18.0); BG VENT MODE MASK - BIPAP
[2022-09-23 09:06] LABS: CHLORIDE 103 mEq/L (98-107)
[2022-09-23] MEDS: ENOXAPARIN 30MG/0.3ML SYR SUBCUT SCH (13:26)
[2022-09-24] VITALS (14 sets, daily range): BP systolic 86–120; BP diastolic 50–75
[2022-09-24 06:13] LABS: CHLORIDE 105 mEq/L (98-107)
[2022-09-24] MEDS ORDERED: SODIUM POLYSTYRENE SULFONATE 15 G/60 ML BOT PO NR (08:30)
[2022-09-24] MEDS: HYDROXYCHLOROQUINE SULFATE 200MG TABLET PO SCH (08:46)
[2022-09-24] MEDS: ASCORBIC ACID 500 MG TABLET PO SCH ×2 (08:46→21:00)
[2022-09-24] MEDS: FAMOTIDINE 20MG TABLET PO SCH ×2 (08:46→21:00)
[2022-09-24] MEDS: ASPIRIN 325MG TABLET PO SCH (08:46)
[2022-09-24] MEDS: ZINC SULFATE 220 MG ( 50 ) CAPSULE PO SCH (08:46)
[2022-09-24 09:30] LABS: BG BASE EXCESS 1.9 mmol/L (-2.0-2.0); BG CARBOXYHEMOGLOBIN 0.2 % (0.5-1.5); BG DEOXYHEMOGLOBIN 5.7 % (0.0-5.0); BG FRACTION INSPIRED OXYGEN 24; BG HCO3 ACT 28.2 mmol/L (22.0-26.0); BG METHEMOGLOBIN 0.3 % (0.0-1.5); BG OXYGEN SATURATION 94.3 % (92.0-98.5); BG OXYHEMOGLOBIN 93.8 % (94.0-97.0); BG PCO2 53.6 mmHg (35.0-45.0); BG PH 7.339 (7.350-7.450); BG PO2 75.6 mmHg (75.0-100.0); BG SAMPLE SITE RIGHT BRACHIAL; BG TOTAL HEMOGLOBIN 8.9 g/dL (12.0-18.0); BG VENT MODE NASAL CANNULA
[2022-09-24 09:45] LABS: BASOPHILS % 0.4 % (0.0-2.0); EOSINOPHILS % 1.3 % (0.0-5.0); HEMATOCRIT. 26.5 % (36.0-48.0); HEMOGLOBIN. 8.3 g/dL (12.0-16.0); MEAN CORPUSCULAR HEMOGLOBIN 29.2 pg (28.0-32.0); MEAN CORPUSCULAR VOLUME 93.6 fL (81.0-99.0); MEAN PLATELET VOLUME 9.3 fl (7.4-10.4); NEUTROPHILS % 74.3 % (40.0-76.0); PLATELET 359 x1000/uL (130-400); RED BLOOD CELL COUNT 2.82 mill/uL (4.2-5.4); RED CELL DISTRIBUTION WIDTH 16.8 % (11.6-14.6)
[2022-09-24] MEDS: ENOXAPARIN 30MG/0.3ML SYR SUBCUT SCH (13:46)
[2022-09-24] MEDS: ACETAMINOPHEN 325MG TABLET PO PRN (23:16)
[2022-09-25] VITALS (16 sets, daily range): BP systolic 91–112; BP diastolic 60–78
[2022-09-25] MEDS: ACETAMINOPHEN 325MG TABLET PO PRN (04:30)
[2022-09-25 07:20] LABS: BASOPHILS % 0.5 % (0.0-2.0); EOSINOPHILS % 1.3 % (0.0-5.0); HEMATOCRIT. 21.3 % (36.0-48.0); LYMPHOCYTES % 15.9 % (20.0-50.0); MEAN CORPUSCULAR VOLUME 90.8 fL (81.0-99.0); MEAN PLATELET VOLUME 9.7 fl (7.4-10.4); MONOCYTES % 5.4 % (2.0-8.0); NEUTROPHILS % 76.9 % (40.0-76.0); PLATELET 298 x1000/uL (130-400); RED BLOOD CELL COUNT 2.34 mill/uL (4.2-5.4); RED CELL DISTRIBUTION WIDTH 15.7 % (11.6-14.6)
[2022-09-25 08:26] LABS: CHLORIDE 103 mEq/L (98-107)
[2022-09-25 08:29] LABS: PHOSPHORUS 3.5 mg/dL (2.5-4.9)
[2022-09-25] MEDS: ASCORBIC ACID 500 MG TABLET PO SCH ×2 (08:59→20:30)
[2022-09-25] MEDS: FAMOTIDINE 20MG TABLET PO SCH ×2 (08:59→20:30)
[2022-09-25] MEDS: ASPIRIN 325MG TABLET PO SCH (08:59)
[2022-09-25] MEDS: HYDROXYCHLOROQUINE SULFATE 200MG TABLET PO SCH (09:00)
[2022-09-25] MEDS: ZINC SULFATE 220 MG ( 50 ) CAPSULE PO SCH (09:00)
[2022-09-25] MEDS ORDERED: MENTHOL/LANOLIN/CALAMINE/ZN OX OINT 71GM TOP SCH (13:00)
[2022-09-25] MEDS: ENOXAPARIN 30MG/0.3ML SYR SUBCUT SCH (14:00)
[2022-09-26] VITALS (7 sets, daily range): BP systolic 93–103; BP diastolic 60–71
[2022-09-26 06:28] LABS: BASOPHILS % 0.3 % (0.0-2.0); EOSINOPHILS % 1.7 % (0.0-5.0); HEMOGLOBIN. 8.1 g/dL (12.0-16.0); LYMPHOCYTES % 18.2 % (20.0-50.0); MEAN CORPUSCULAR VOLUME 91.9 fL (81.0-99.0); MEAN PLATELET VOLUME 8.7 fl (7.4-10.4); MONOCYTES % 5.7 % (2.0-8.0); NEUTROPHILS % 74.1 % (40.0-76.0); PLATELET 264 x1000/uL (130-400); RED BLOOD CELL COUNT 2.61 mill/uL (4.2-5.4); RED CELL DISTRIBUTION WIDTH 15.1 % (11.6-14.6)
[2022-09-26 07:17] LABS: CHLORIDE 106 mEq/L (98-107)
== END 2022-09-26 14:37 | disposition home health service (06) | DRG 720 ==
LOC: ER 08:20 → EDBEDREQTM 10:11 → EDBEDREQSVC 10:11 → MICUSO 10:56 → EDBEDREQ 11:00 → EDBEDREQTM 11:00 → EDBEDREQSVC 14:22 → ENRESERV 17:07 → 5EST 09-19 21:46
PROVIDERS: ADMIT Internal Medicine; ATTEND Internal Medicine
PROC: 0BH17EZ Insertion of Endotracheal Airway into Trachea, Via Natural or Artificial Opening (ICD-10-PCS; principal; 2022-09-07)
PROC: 5A1945Z Respiratory Ventilation, 24-96 Consecutive Hours (ICD-10-PCS; 2022-09-07)
PROC: 02HV33Z Insertion of Infusion Device into Superior Vena Cava, Percutaneous Approach (ICD-10-PCS; 2022-09-08)
PROC: B548ZZA Ultrasonography of Superior Vena Cava, Guidance (ICD-10-PCS; 2022-09-08)
PROC: 5A1955Z Respiratory Ventilation, Greater than 96 Consecutive Hours (ICD-10-PCS; 2022-09-11)
PROC: 5A09457 Assistance with Respiratory Ventilation, 24-96 Consecutive Hours, Continuous Positive Airway Pressure (ICD-10-PCS; 2022-09-20)
PROC: 5A09357 Assistance with Respiratory Ventilation, Less than 24 Consecutive Hours, Continuous Positive Airway Pressure (ICD-10-PCS; 2022-09-23)
PROC: 30233N1 Transfusion of Nonautologous Red Blood Cells into Peripheral Vein, Percutaneous Approach (ICD-10-PCS; 2022-09-25)
DX: A41.9 Sepsis, unspecified organism (principal); R65.21 Severe sepsis with septic shock; G92.8 Other toxic encephalopathy; J18.9 Pneumonia, unspecified organism; E43 Unspecified severe protein-calorie malnutrition; L89.154 Pressure ulcer of sacral region, stage 4; J96.02 Acute respiratory failure with hypercapnia; J96.01 Acute respiratory failure with hypoxia; J43.9 Emphysema, unspecified; M32.9 Systemic lupus erythematosus, unspecified; Z20.822 Contact with and (suspected) exposure to COVID-19; I11.0 Hypertensive heart disease with heart failure; I27.20 Pulmonary hypertension, unspecified; D63.8 Anemia in other chronic diseases classified elsewhere; I50.32 Chronic diastolic (congestive) heart failure; N39.0 Urinary tract infection, site not specified; E87.6 Hypokalemia; M06.9 Rheumatoid arthritis, unspecified; B96.5 Pseudomonas (aeruginosa) (mallei) (pseudomallei) as the cause of diseases classified elsewhere; B96.1 Klebsiella pneumoniae [K. pneumoniae] as the cause of diseases classified elsewhere; I27.81 Cor pulmonale (chronic); R62.7 Adult failure to thrive; I25.10 Atherosclerotic heart disease of native coronary artery without angina pectoris; E83.42 Hypomagnesemia; E83.39 Other disorders of phosphorus metabolism; R31.9 Hematuria, unspecified; E87.29 Other acidosis; J98.11 Atelectasis; D64.89 Other specified anemias; Z79.82 Long term (current) use of aspirin; Z82.49 Family history of ischemic heart disease and other diseases of the circulatory system; Z78.1 Physical restraint status; Z87.440 Personal history of urinary (tract) infections; Z99.11 Dependence on respirator [ventilator] status; Z88.0 Allergy status to penicillin; Z88.2 Allergy status to sulfonamides; Z74.01 Bed confinement status
CPT/HCPCS: 31500; 36415; 36573; 36600; 70496; 70498; 71045; 71275; 76536; 80048; 80053; 80061; 80202; 80305; 81003; 82375; 82550; 82553; 82607; 82728; 82746; 82805; 82962; 83036; 83540; 83550; 83605; 83735; 83880; 84100; 84134; 84145; 84439; 84443; 84478; 84484; 84703; 85025; 85027; 85379; 86850; 86900; 86920; 87070; 87077; 87106; 87186; 87420; 87426; 87804; 92610; 93005; 93970; 94002; 94003; 94640; 94660; 99291; A6261; C1725; C9803; J0692; J1650; J1956; J2060; J2185; J2270; J2370; J2704; J2920; J3010; J3370; J3475; J3480; J3490; J7050; J7060; J7608; J7626; P9016; Q9967; A4315

== ENCOUNTER 2023-01-02 11:06 | Inpatient (IN) | payer MEDICAID ==
[2023-01-02] VITALS (26 sets, daily range): BP systolic 117–140; BP diastolic 71–112
[~2023-01-02] VITALS: Ht 154.9 cm; Wt 4.1 kg
[2023-01-02 11:55] LABS: CHLORIDE 109 mEq/L (98-107)
[2023-01-02 12:00] LABS: BASOPHILS % 0.2 % (0.0-2.0); EOSINOPHILS % 0.7 % (0.0-5.0); HEMATOCRIT. 32.1 % (36.0-48.0); HEMOGLOBIN. 9.9 g/dL (12.0-16.0); LYMPHOCYTES % 18.4 % (20.0-50.0); MEAN CORPUSCULAR HEMOGLOBIN 28.6 pg (28.0-32.0); MEAN CORPUSCULAR VOLUME 92.3 fL (81.0-99.0); MONOCYTES % 5.1 % (2.0-8.0); NEUTROPHILS % 75.6 % (40.0-76.0); PLATELET 308 x1000/uL (130-400); RED BLOOD CELL COUNT 3.47 mill/uL (4.2-5.4); RED CELL DISTRIBUTION WIDTH 13.8 % (11.6-14.6)
[2023-01-02] MEDS ORDERED: SODIUM CHLORIDE 0.9% 1000ML BAG (SEPSIS BOLUS) IV NR (12:00)
[2023-01-02] MEDS ORDERED: VANCOMYCIN 1G PREMIX 200 ML IV NR (12:00)
[2023-01-02] MEDS ORDERED: LEVOFLOXACIN 750MG PREMIX 150 ML IV NR (12:00)
[2023-01-02 12:07] LABS: BG CARBOXYHEMOGLOBIN 0.5 % (0.5-1.5); BG DEOXYHEMOGLOBIN 0.3 % (0.0-5.0); BG FRACTION INSPIRED OXYGEN 100; BG HCO3 ACT 36.5 mmol/L (22.0-26.0); BG METHEMOGLOBIN 0.5 % (0.0-1.5); BG OXYGEN SATURATION 99.7 % (92.0-98.5); BG OXYHEMOGLOBIN 98.7 % (94.0-97.0); BG PCO2 138.8 mmHg (35.0-45.0); BG PH 7.038 (7.350-7.450); BG PO2 410.8 mmHg (75.0-100.0); BG SAMPLE SITE RIGHT RADIAL; BG TOTAL HEMOGLOBIN 10.4 g/dL (12.0-18.0); BG VENT MODE MASK - NRB
[2023-01-02 13:08] LABS: BG BASE EXCESS -2.5 mmol/L (-2.0-2.0); BG CARBOXYHEMOGLOBIN 0.6 % (0.5-1.5); BG FRACTION INSPIRED OXYGEN 28; BG HCO3 ACT 27.9 mmol/L (22.0-26.0); BG METHEMOGLOBIN 0.4 % (0.0-1.5); BG PCO2 87.2 mmHg (35.0-45.0); BG PH 7.123 (7.350-7.450); BG PO2 103.7 mmHg (75.0-100.0); BG SAMPLE SITE LEFT BRACHIAL; BG TOTAL HEMOGLOBIN 9.7 g/dL (12.0-18.0); BG VENT MODE NASAL CANNULA
[2023-01-02] MEDS ORDERED: LORAZEPAM 2MG/ML CPJ IV ONE (13:30)
[2023-01-02] MEDS ORDERED: METHYLPREDNISOLONE SOD SUCC 125 MG/2 ML VIAL IV ONE (14:45)
[2023-01-02] MEDS ORDERED: SUCCINYLCHOLINE CHLORIDE 200MG/10ML IV ONE (14:45)
[2023-01-02] MEDS ORDERED: MIDAZOLAM HCL 100 MG in DEXT 5% WATER 80 ML IV ONE (14:45)
[2023-01-02] MEDS ORDERED: ETOMIDATE 2MG/ML 10ML VIAL IV ONE (14:45)
[2023-01-02] MEDS ORDERED: MIDAZOLAM HCL 100 MG in SODIUM CHLORIDE 0.9% 100 ML IV PRN (15:00)
[2023-01-02 15:36] LABS: CLARITY URINE TURBID (CLEAR); COLOR URINE YELLOW (YELLOW); KETONES URINE NEGATIVE (NEGATIVE); LEUKOCYTE ESTERASE URINE 3+ (NEGATIVE); NITRITE URINE NEGATIVE (NEGATIVE); OCCULT BLOOD URINE 3+ (NEGATIVE); PROTEIN URINE 3+ (NEGATIVE); SPECIFIC GRAVITY URINE 1.015 (1.005-1.030); UROBILINOGEN URINE 0.2 E.U./dL (0.2-1.0)
[2023-01-02 16:00] LABS: BG BASE EXCESS 0.8 mmol/L (-2.0-2.0); BG CARBOXYHEMOGLOBIN 0.3 % (0.5-1.5); BG DEOXYHEMOGLOBIN 0.7 % (0.0-5.0); BG HCO3 ACT 29.3 mmol/L (22.0-26.0); BG METHEMOGLOBIN 0.3 % (0.0-1.5); BG OXYGEN SATURATION 99.3 % (92.0-98.5); BG OXYHEMOGLOBIN 98.7 % (94.0-97.0); BG PCO2 72.5 mmHg (35.0-45.0); BG PH 7.225 (7.350-7.450); BG PO2 232.8 mmHg (75.0-100.0); BG SAMPLE SITE RIGHT RADIAL; BG TOTAL HEMOGLOBIN 9.3 g/dL (12.0-18.0); BG VENT MODE VENT - AC
[2023-01-02] MEDS ORDERED: ACETAMINOPHEN 325MG TABLET PO PRN (19:45)
[2023-01-02] MEDS ORDERED: DOCUSATE SODIUM 100MG CAPSULE PO PRN (19:45)
[2023-01-02] MEDS ORDERED: CLONIDINE 0.1MG TABLET PO PRN (19:45)
[2023-01-02] MEDS ORDERED: ONDANSETRON HCL 4MG/2ML INJ IV PRN (19:45)
[2023-01-02] MEDS ORDERED: LORAZEPAM 0.5MG TABLET PO PRN (19:45)
[2023-01-02] MEDS ORDERED: HYDROCODONE/ACETAMINOPHEN 5/325MG TABLET PO PRN (19:45)
[2023-01-02] MEDS ORDERED: IPRATROPIUM/ALBUTEROL 0.5-3(2.5)MG/3ML NEB HHN PRN (19:45)
[2023-01-02] MEDS ORDERED: NALOXONE HCL 0.4MG/ML VIAL IV PRN (20:00)
[2023-01-03] VITALS (91 sets, daily range): BP systolic 95–146; BP diastolic 64–96
[2023-01-03] MEDS: IPRATROPIUM/ALBUTEROL 0.5-3(2.5)MG/3ML NEB HHN SCH ×5 (01:58→23:57)
[2023-01-03] MEDS: PROPOFOL 10MG/ML 100ML 100 ML IV PRN ×3 (03:14→18:07)
[2023-01-03 05:12] LABS: HEMATOCRIT. 24.3 % (36.0-48.0); HEMOGLOBIN. 7.9 g/dL (12.0-16.0); LYMPHOCYTES % 28.8 % (20.0-50.0); MEAN CORPUSCULAR VOLUME 89.8 fL (81.0-99.0); MEAN PLATELET VOLUME 7.9 fl (7.4-10.4); MONOCYTES % 8.5 % (2.0-8.0); NEUTROPHILS % 62.7 % (40.0-76.0); PLATELET 319 x1000/uL (130-400); RED BLOOD CELL COUNT 2.71 mill/uL (4.2-5.4); RED CELL DISTRIBUTION WIDTH 13.6 % (11.6-14.6)
[2023-01-03 05:17] LABS: CHLORIDE 102 mEq/L (98-107)
[2023-01-03] MEDS ORDERED: DEXT 5%/0.45% NACL 1000ML 1,000 ML IV SCH (07:45)
[2023-01-03 08:58] LABS: PHOSPHORUS 2.1 mg/dL (2.5-4.9); T4 FREE 1.44 ng/dL (0.76-1.46)
[2023-01-03] MEDS: CEFEPIME 1,000 MG in DEXTROSE 5% WATER 50 ML IV SCH ×2 (09:15→21:21)
[2023-01-03 09:19] LABS: BG BASE EXCESS 3.6 mmol/L (-2.0-2.0); BG CARBOXYHEMOGLOBIN 0.5 % (0.5-1.5); BG DEOXYHEMOGLOBIN 0.8 % (0.0-5.0); BG FRACTION INSPIRED OXYGEN 40; BG METHEMOGLOBIN 0.2 % (0.0-1.5); BG OXYGEN SATURATION 99.2 % (92.0-98.5); BG OXYHEMOGLOBIN 98.5 % (94.0-97.0); BG PCO2 30.7 mmHg (35.0-45.0); BG PH 7.545 (7.350-7.450); BG PO2 144.7 mmHg (75.0-100.0); BG SAMPLE SITE RIGHT RADIAL; BG VENT MODE VENT - AC
[2023-01-03 09:22] LABS: FOLIC ACID (FOLATE) SERUM 18.5 ng/mL (>5.38)
[2023-01-03] MEDS ORDERED: VANCOMYCIN 750MG PREMIX 150 ML IV SCH (09:30)
[2023-01-03] MEDS: LEVETIRACETAM 500MG PREMIX 100 ML IV SCH ×2 (13:08→23:28)
[2023-01-03] MEDS: ENOXAPARIN 40MG/0.4ML SYR SUBCUT SCH (14:48)
[2023-01-03] MEDS: PANTOPRAZOLE SODIUM 40 MG/VIAL IV SCH (14:48)
[2023-01-03] MEDS ORDERED: MAGNESIUM 1 G PREMIX 100 ML IV NR (15:00)
[2023-01-03 15:45] LABS: *AMPHETAMINES SCREEN URINE NEGATIVE (NEGATIVE); *BARBITURATES SCREEN URINE NEGATIVE (NEGATIVE); *COCAINE SCREEN URINE NEGATIVE (NEGATIVE); METHADONE URINE SCREEN NEGATIVE (NEGATIVE); PHENCYCLIDINE URINE SCREEN NEGATIVE (NEGATIVE)
[2023-01-03 15:50] LABS: *BENZODIAZEPINES SCREEN URINE PRESUMTIVE POSITIVE (NEGATIVE); CANNABINOID URINE SCREEN PRESUMTIVE POSITIVE (NEGATIVE); OPIATES URINE SCREEN PRESUMTIVE POSITIVE (NEGATIVE)
[2023-01-03] MEDS ORDERED: SODIUM PHOS,M-BASIC-D-BASIC 30 MM in DEXT 5% WATER 500 ML IV NR (16:00)
[2023-01-03 17:13] LABS: T4 FREE 1.46 ng/dL (0.76-1.46)
[2023-01-04] VITALS (62 sets, daily range): BP systolic 80–134; BP diastolic 55–93
[2023-01-04] MEDS: PROPOFOL 10MG/ML 100ML 100 ML IV PRN ×2 (04:56→23:00)
[2023-01-04 06:01] LABS: BASOPHILS % 0.2 % (0.0-2.0); EOSINOPHILS % 1.1 % (0.0-5.0); HEMATOCRIT. 23.2 % (36.0-48.0); HEMOGLOBIN. 7.5 g/dL (12.0-16.0); LYMPHOCYTES % 23.9 % (20.0-50.0); MEAN CORPUSCULAR HEMOGLOBIN 28.6 pg (28.0-32.0); MEAN CORPUSCULAR VOLUME 88.5 fL (81.0-99.0); MEAN PLATELET VOLUME 8.1 fl (7.4-10.4); MONOCYTES % 10.3 % (2.0-8.0); NEUTROPHILS % 64.5 % (40.0-76.0); PLATELET 285 x1000/uL (130-400); RED BLOOD CELL COUNT 2.62 mill/uL (4.2-5.4); RED CELL DISTRIBUTION WIDTH 14.2 % (11.6-14.6)
[2023-01-04 06:15] LABS: CHLORIDE 106 mEq/L (98-107)
[2023-01-04] MEDS: CEFEPIME 1,000 MG in DEXTROSE 5% WATER 50 ML IV SCH ×2 (08:07→20:42)
[2023-01-04] MEDS: PANTOPRAZOLE SODIUM 40 MG/VIAL IV SCH (08:07)
[2023-01-04] MEDS ORDERED: POTASSIUM CHLORIDE 20MEQ/PACKET NG NR (08:15)
[2023-01-04] MEDS: IPRATROPIUM/ALBUTEROL 0.5-3(2.5)MG/3ML NEB HHN SCH ×3 (08:18→19:59)
[2023-01-04 10:47] LABS: BG BASE EXCESS 3.3 mmol/L (-2.0-2.0); BG CARBOXYHEMOGLOBIN 0.3 % (0.5-1.5); BG FRACTION INSPIRED OXYGEN 30; BG HCO3 ACT 27.2 mmol/L (22.0-26.0); BG METHEMOGLOBIN 0.3 % (0.0-1.5); BG OXYHEMOGLOBIN 96.4 % (94.0-97.0); BG PCO2 38.6 mmHg (35.0-45.0); BG PH 7.466 (7.350-7.450); BG PO2 93.2 mmHg (75.0-100.0); BG SAMPLE SITE RIGHT RADIAL; BG TOTAL HEMOGLOBIN 9.3 g/dL (12.0-18.0); BG VENT MODE VENT - AC
[2023-01-04] MEDS: LEVETIRACETAM 500MG PREMIX 100 ML IV SCH ×2 (10:59→20:43)
[2023-01-04] MEDS: IRON SUCROSE COMPLEX 100 MG/5 ML ML IV SCH (10:59)
[2023-01-04] MEDS: ENOXAPARIN 40MG/0.4ML SYR SUBCUT SCH (14:53)
[2023-01-04] MEDS ORDERED: POTASSIUM CHLORIDE 20MEQ/PACKET PO NR (15:00)
[2023-01-05] VITALS (63 sets, daily range): BP systolic 83–130; BP diastolic 54–93
[2023-01-05] MEDS: IPRATROPIUM/ALBUTEROL 0.5-3(2.5)MG/3ML NEB HHN SCH ×2 (01:51→07:57)
[2023-01-05] MEDS: PROPOFOL 10MG/ML 100ML 100 ML IV PRN ×2 (05:45→13:35)
[2023-01-05 06:12] LABS: BASOPHILS % 0.3 % (0.0-2.0); HEMATOCRIT. 23.5 % (36.0-48.0); HEMOGLOBIN. 7.5 g/dL (12.0-16.0); LYMPHOCYTES % 24.3 % (20.0-50.0); MEAN CORPUSCULAR HEMOGLOBIN 28.5 pg (28.0-32.0); MEAN CORPUSCULAR VOLUME 89.9 fL (81.0-99.0); MEAN PLATELET VOLUME 8.4 fl (7.4-10.4); MONOCYTES % 9.8 % (2.0-8.0); NEUTROPHILS % 61.6 % (40.0-76.0); PLATELET 267 x1000/uL (130-400); RED BLOOD CELL COUNT 2.62 mill/uL (4.2-5.4)
[2023-01-05 06:44] LABS: CHLORIDE 110 mEq/L (98-107)
[2023-01-05 06:54] LABS: PHOSPHORUS 3.5 mg/dL (2.5-4.9)
[2023-01-05 08:16] LABS: BG BASE EXCESS 2.1 mmol/L (-2.0-2.0); BG CARBOXYHEMOGLOBIN 0.9 % (0.5-1.5); BG DEOXYHEMOGLOBIN 4.9 % (0.0-5.0); BG FRACTION INSPIRED OXYGEN 30; BG METHEMOGLOBIN 0.3 % (0.0-1.5); BG OXYHEMOGLOBIN 93.9 % (94.0-97.0); BG PCO2 37.1 mmHg (35.0-45.0); BG PH 7.463 (7.350-7.450); BG PO2 74.1 mmHg (75.0-100.0); BG SAMPLE SITE RIGHT RADIAL; BG TOTAL HEMOGLOBIN 7.6 g/dL (12.0-18.0); BG VENT MODE VENT - AC
[2023-01-05] MEDS: LEVETIRACETAM 500MG PREMIX 100 ML IV SCH ×2 (09:26→21:23)
[2023-01-05] MEDS: CEFEPIME 1,000 MG in DEXTROSE 5% WATER 50 ML IV SCH ×2 (09:36→21:23)
[2023-01-05] MEDS: PANTOPRAZOLE SODIUM 40 MG/VIAL IV SCH (09:36)
[2023-01-05] MEDS: IRON SUCROSE COMPLEX 100 MG/5 ML ML IV SCH (09:49)
[2023-01-05] MEDS ORDERED: LIDOCAINE HCL 1% 10 MG/ML 10ML VIAL ONE (13:06)
[2023-01-05] MEDS: ENOXAPARIN 40MG/0.4ML SYR SUBCUT SCH (13:38)
[2023-01-05] MEDS ORDERED: SODIUM CHLORIDE 0.9% 500 ML IV ONE (16:00)
[2023-01-05] MEDS: IPRATROPIUM BROMIDE (0.02%) 0.5MG/2.5ML NEB HHN SCH ×2 (17:10→20:40)
[2023-01-05] MEDS: GUAIFENESIN-DM 200MG-20MG/10ML UDC PO SCH (18:33)
[2023-01-06] VITALS (51 sets, daily range): BP systolic 91–131; BP diastolic 49–85
[2023-01-06] MEDS: IPRATROPIUM BROMIDE (0.02%) 0.5MG/2.5ML NEB HHN SCH ×6 (00:30→20:12)
[2023-01-06] MEDS: GUAIFENESIN-DM 200MG-20MG/10ML UDC PO SCH ×6 (00:48→23:59)
[2023-01-06] MEDS: PROPOFOL 10MG/ML 100ML 100 ML IV PRN ×2 (00:48→08:10)
[2023-01-06 05:17] LABS: BASOPHILS % 0.1 % (0.0-2.0); EOSINOPHILS % 2.1 % (0.0-5.0); HEMATOCRIT. 23.2 % (36.0-48.0); HEMOGLOBIN. 7.4 g/dL (12.0-16.0); LYMPHOCYTES % 9.6 % (20.0-50.0); MEAN CORPUSCULAR VOLUME 90.5 fL (81.0-99.0); MEAN PLATELET VOLUME 8.5 fl (7.4-10.4); MONOCYTES % 5.7 % (2.0-8.0); NEUTROPHILS % 82.5 % (40.0-76.0); PLATELET 260 x1000/uL (130-400); RED BLOOD CELL COUNT 2.56 mill/uL (4.2-5.4); RED CELL DISTRIBUTION WIDTH 14.1 % (11.6-14.6)
[2023-01-06 05:27] LABS: CHLORIDE 108 mEq/L (98-107)
[2023-01-06 05:34] LABS: PHOSPHORUS 3.2 mg/dL (2.5-4.9)
[2023-01-06 08:28] LABS: BG BASE EXCESS 0.7 mmol/L (-2.0-2.0); BG CARBOXYHEMOGLOBIN 0.7 % (0.5-1.5); BG DEOXYHEMOGLOBIN 0.6 % (0.0-5.0); BG FRACTION INSPIRED OXYGEN 50; BG HCO3 ACT 24.6 mmol/L (22.0-26.0); BG METHEMOGLOBIN 0.3 % (0.0-1.5); BG OXYGEN SATURATION 99.4 % (92.0-98.5); BG OXYHEMOGLOBIN 98.4 % (94.0-97.0); BG PCO2 36.6 mmHg (35.0-45.0); BG PH 7.446 (7.350-7.450); BG PO2 156.9 mmHg (75.0-100.0); BG SAMPLE SITE LEFT RADIAL; BG TOTAL HEMOGLOBIN 8.3 g/dL (12.0-18.0); BG TOTAL RESPIRATORY RATE 24 b/min; BG VENT MODE VENT - AC
[2023-01-06] MEDS: ENOXAPARIN 40MG/0.4ML SYR SUBCUT SCH (08:51)
[2023-01-06] MEDS: PANTOPRAZOLE SODIUM 40 MG/VIAL IV SCH (08:52)
[2023-01-06] MEDS: LEVETIRACETAM 500MG PREMIX 100 ML IV SCH ×2 (08:53→21:21)
[2023-01-06] MEDS: CEFEPIME 1,000 MG in DEXTROSE 5% WATER 50 ML IV SCH ×2 (08:53→21:21)
[2023-01-06] MEDS: IRON SUCROSE COMPLEX 100 MG/5 ML ML IV SCH (09:02)
[2023-01-06] MEDS ORDERED: MEROPENEM 500 MG in SODIUM CHLORIDE 0.9% 50 ML IV SCH (16:00)
[2023-01-06] MEDS ORDERED: MEROPENEM 1000MG in NORMAL SALINE 100ML IV SCH (17:00)
[2023-01-07] VITALS (44 sets, daily range): BP systolic 98–146; BP diastolic 29–88
[2023-01-07] MEDS: IPRATROPIUM BROMIDE (0.02%) 0.5MG/2.5ML NEB HHN SCH ×6 (00:36→21:01)
[2023-01-07 06:28] LABS: CHLORIDE 107 mEq/L (98-107)
[2023-01-07 06:34] LABS: BASOPHILS % 0.2 % (0.0-2.0); EOSINOPHILS % 3.1 % (0.0-5.0); HEMATOCRIT. 23.2 % (36.0-48.0); HEMOGLOBIN. 7.5 g/dL (12.0-16.0); LYMPHOCYTES % 14.9 % (20.0-50.0); MEAN CORPUSCULAR HEMOGLOBIN 29.3 pg (28.0-32.0); MEAN CORPUSCULAR VOLUME 90.6 fL (81.0-99.0); MEAN PLATELET VOLUME 8.8 fl (7.4-10.4); MONOCYTES % 5.1 % (2.0-8.0); NEUTROPHILS % 76.7 % (40.0-76.0); PLATELET 248 x1000/uL (130-400); RED BLOOD CELL COUNT 2.56 mill/uL (4.2-5.4); RED CELL DISTRIBUTION WIDTH 14.5 % (11.6-14.6)
[2023-01-07 06:35] LABS: PHOSPHORUS 3.2 mg/dL (2.5-4.9)
[2023-01-07] MEDS: GUAIFENESIN-DM 200MG-20MG/10ML UDC PO SCH ×4 (06:35→23:13)
[2023-01-07] MEDS: LEVETIRACETAM 500MG PREMIX 100 ML IV SCH ×2 (08:22→20:46)
[2023-01-07] MEDS: CEFEPIME 1,000 MG in DEXTROSE 5% WATER 50 ML IV SCH ×2 (08:22→20:05)
[2023-01-07] MEDS: PANTOPRAZOLE SODIUM 40 MG/VIAL IV SCH (08:22)
[2023-01-07] MEDS: ENOXAPARIN 40MG/0.4ML SYR SUBCUT SCH (08:23)
[2023-01-07 08:52] LABS: BG BASE EXCESS 2.1 mmol/L (-2.0-2.0); BG CARBOXYHEMOGLOBIN 0.6 % (0.5-1.5); BG DEOXYHEMOGLOBIN 3.5 % (0.0-5.0); BG FRACTION INSPIRED OXYGEN 40; BG HCO3 ACT 27.1 mmol/L (22.0-26.0); BG METHEMOGLOBIN 0.4 % (0.0-1.5); BG OXYGEN SATURATION 96.5 % (92.0-98.5); BG OXYHEMOGLOBIN 95.5 % (94.0-97.0); BG PCO2 44.4 mmHg (35.0-45.0); BG PH 7.403 (7.350-7.450); BG PO2 87.8 mmHg (75.0-100.0); BG SAMPLE SITE RIGHT RADIAL; BG TOTAL HEMOGLOBIN 8.2 g/dL (12.0-18.0); BG TOTAL RESPIRATORY RATE 27 b/min; BG VENT MODE VENT - AC
[2023-01-07 12:14] LABS: BG BASE EXCESS -0.5 mmol/L (-2.0-2.0); BG CARBOXYHEMOGLOBIN 0.7 % (0.5-1.5); BG DEOXYHEMOGLOBIN 2.4 % (0.0-5.0); BG HCO3 ACT 25.8 mmol/L (22.0-26.0); BG METHEMOGLOBIN 0.5 % (0.0-1.5); BG OXYGEN SATURATION 97.6 % (92.0-98.5); BG OXYHEMOGLOBIN 96.4 % (94.0-97.0); BG PCO2 50.1 mmHg (35.0-45.0); BG PH 7.329 (7.350-7.450); BG PO2 108.2 mmHg (75.0-100.0); BG SAMPLE SITE RIGHT RADIAL; BG TOTAL HEMOGLOBIN 9.2 g/dL (12.0-18.0); BG VENT MODE VENT - CPAP
[2023-01-08] VITALS (42 sets, daily range): BP systolic 97–128; BP diastolic 44–89
[2023-01-08] MEDS: IPRATROPIUM BROMIDE (0.02%) 0.5MG/2.5ML NEB HHN SCH ×6 (01:00→20:13)
[2023-01-08 05:18] LABS: BASOPHILS % 0.1 % (0.0-2.0); EOSINOPHILS % 3.1 % (0.0-5.0); HEMATOCRIT. 23.9 % (36.0-48.0); HEMOGLOBIN. 7.5 g/dL (12.0-16.0); LYMPHOCYTES % 11.4 % (20.0-50.0); MEAN CORPUSCULAR HEMOGLOBIN 28.5 pg (28.0-32.0); MEAN CORPUSCULAR VOLUME 90.5 fL (81.0-99.0); MEAN PLATELET VOLUME 8.5 fl (7.4-10.4); MONOCYTES % 4.8 % (2.0-8.0); NEUTROPHILS % 80.6 % (40.0-76.0); PLATELET 289 x1000/uL (130-400); RED BLOOD CELL COUNT 2.64 mill/uL (4.2-5.4); RED CELL DISTRIBUTION WIDTH 14.4 % (11.6-14.6)
[2023-01-08 05:19] LABS: CHLORIDE 105 mEq/L (98-107)
[2023-01-08] MEDS: GUAIFENESIN-DM 200MG-20MG/10ML UDC PO SCH ×3 (06:45→17:35)
[2023-01-08] MEDS: PANTOPRAZOLE SODIUM 40 MG/VIAL IV SCH (08:45)
[2023-01-08] MEDS: LEVETIRACETAM 500MG PREMIX 100 ML IV SCH ×2 (08:45→20:40)
[2023-01-08] MEDS: ENOXAPARIN 40MG/0.4ML SYR SUBCUT SCH (08:45)
[2023-01-08] MEDS: CEFEPIME 1,000 MG in DEXTROSE 5% WATER 50 ML IV SCH ×2 (08:45→20:56)
[2023-01-08] MEDS: ACETAMINOPHEN 325MG TABLET PO PRN (08:51)
[2023-01-08 10:21] LABS: BG BASE EXCESS 5.1 mmol/L (-2.0-2.0); BG CARBOXYHEMOGLOBIN 0.8 % (0.5-1.5); BG DEOXYHEMOGLOBIN 4.4 % (0.0-5.0); BG FRACTION INSPIRED OXYGEN 30; BG HCO3 ACT 30.8 mmol/L (22.0-26.0); BG OXYGEN SATURATION 95.6 % (92.0-98.5); BG OXYHEMOGLOBIN 94.8 % (94.0-97.0); BG PCO2 52.6 mmHg (35.0-45.0); BG PH 7.386 (7.350-7.450); BG PO2 79.9 mmHg (75.0-100.0); BG SAMPLE SITE RIGHT RADIAL; BG TOTAL HEMOGLOBIN 8.6 g/dL (12.0-18.0); BG VENT MODE VENT - SIMV
[2023-01-08 14:52] LABS: BG BASE EXCESS 5.4 mmol/L (-2.0-2.0); BG CARBOXYHEMOGLOBIN 0.2 % (0.5-1.5); BG DEOXYHEMOGLOBIN 3.9 % (0.0-5.0); BG FRACTION INSPIRED OXYGEN 30; BG HCO3 ACT 32.1 mmol/L (22.0-26.0); BG METHEMOGLOBIN 0.4 % (0.0-1.5); BG OXYGEN SATURATION 96.1 % (92.0-98.5); BG OXYHEMOGLOBIN 95.5 % (94.0-97.0); BG PCO2 59.6 mmHg (35.0-45.0); BG PH 7.349 (7.350-7.450); BG PO2 88.9 mmHg (75.0-100.0); BG SAMPLE SITE RIGHT RADIAL; BG TOTAL HEMOGLOBIN 9.1 g/dL (12.0-18.0); BG VENT MODE VENT - CPAP
[2023-01-09] VITALS (25 sets, daily range): BP systolic 95–124; BP diastolic 52–91
[2023-01-09] MEDS: GUAIFENESIN-DM 200MG-20MG/10ML UDC PO SCH ×4 (00:23→18:08)
[2023-01-09] MEDS: IPRATROPIUM BROMIDE (0.02%) 0.5MG/2.5ML NEB HHN SCH ×6 (00:45→20:23)
[2023-01-09 05:44] LABS: BASOPHILS % 0.1 % (0.0-2.0); EOSINOPHILS % 4.1 % (0.0-5.0); HEMATOCRIT. 25.6 % (36.0-48.0); HEMOGLOBIN. 8.5 g/dL (12.0-16.0); MEAN CORPUSCULAR VOLUME 90.5 fL (81.0-99.0); MEAN PLATELET VOLUME 8.2 fl (7.4-10.4); MONOCYTES % 6.6 % (2.0-8.0); NEUTROPHILS % 72.2 % (40.0-76.0); PLATELET 323 x1000/uL (130-400); RED BLOOD CELL COUNT 2.83 mill/uL (4.2-5.4); RED CELL DISTRIBUTION WIDTH 14.3 % (11.6-14.6)
[2023-01-09 06:20] LABS: CHLORIDE 102 mEq/L (98-107)
[2023-01-09 06:27] LABS: PHOSPHORUS 2.9 mg/dL (2.5-4.9)
[2023-01-09] MEDS ORDERED: SODIUM CHLORIDE 0.9% 500 ML IV ONE (08:00)
[2023-01-09] MEDS: PANTOPRAZOLE SODIUM 40 MG/VIAL IV SCH (08:55)
[2023-01-09] MEDS: LEVETIRACETAM 500MG PREMIX 100 ML IV SCH ×2 (08:55→21:20)
[2023-01-09] MEDS: ENOXAPARIN 40MG/0.4ML SYR SUBCUT SCH (08:55)
[2023-01-09] MEDS: CEFEPIME 1,000 MG in DEXTROSE 5% WATER 50 ML IV SCH ×2 (09:01→21:20)
[2023-01-09] MEDS: METHYLPREDNISOLONE SOD SUCC 40 MG/ML VIAL IV SCH ×2 (09:02→18:09)
[2023-01-09 10:51] LABS: BG BASE EXCESS 5.5 mmol/L (-2.0-2.0); BG CARBOXYHEMOGLOBIN 0.3 % (0.5-1.5); BG DEOXYHEMOGLOBIN 0.3 % (0.0-5.0); BG FRACTION INSPIRED OXYGEN 30; BG HCO3 ACT 32.2 mmol/L (22.0-26.0); BG METHEMOGLOBIN 0.5 % (0.0-1.5); BG OXYGEN SATURATION 99.7 % (92.0-98.5); BG OXYHEMOGLOBIN 98.9 % (94.0-97.0); BG PH 7.341 (7.350-7.450); BG PO2 359.2 mmHg (75.0-100.0); BG SAMPLE SITE RIGHT RADIAL; BG TOTAL HEMOGLOBIN 8.7 g/dL (12.0-18.0); BG VENT MODE VENT - CPAP
[2023-01-09 11:30] LABS: BG BASE EXCESS 3.5 mmol/L (-2.0-2.0); BG CARBOXYHEMOGLOBIN 0.2 % (0.5-1.5); BG DEOXYHEMOGLOBIN 4.2 % (0.0-5.0); BG FRACTION INSPIRED OXYGEN 30; BG HCO3 ACT 29.9 mmol/L (22.0-26.0); BG METHEMOGLOBIN 0.3 % (0.0-1.5); BG OXYGEN SATURATION 95.8 % (92.0-98.5); BG OXYHEMOGLOBIN 95.3 % (94.0-97.0); BG PCO2 56.2 mmHg (35.0-45.0); BG PH 7.344 (7.350-7.450); BG SAMPLE SITE RIGHT RADIAL; BG VENT MODE VENT - CPAP
[2023-01-10] VITALS (47 sets, daily range): BP systolic 87–142; BP diastolic 59–82
[2023-01-10] MEDS: IPRATROPIUM BROMIDE (0.02%) 0.5MG/2.5ML NEB HHN SCH ×5 (00:21→15:48)
[2023-01-10] MEDS: GUAIFENESIN-DM 200MG-20MG/10ML UDC PO SCH ×4 (00:40→18:57)
[2023-01-10] MEDS: METHYLPREDNISOLONE SOD SUCC 40 MG/ML VIAL IV SCH ×3 (01:06→18:57)
[2023-01-10 05:54] LABS: BASOPHILS % 0.1 % (0.0-2.0); HEMATOCRIT. 26.4 % (36.0-48.0); HEMOGLOBIN. 8.3 g/dL (12.0-16.0); MEAN CORPUSCULAR HEMOGLOBIN 28.4 pg (28.0-32.0); MEAN PLATELET VOLUME 8.2 fl (7.4-10.4); MONOCYTES % 2.4 % (2.0-8.0); NEUTROPHILS % 87.5 % (40.0-76.0); PLATELET 365 x1000/uL (130-400); RED CELL DISTRIBUTION WIDTH 14.5 % (11.6-14.6)
[2023-01-10 05:58] LABS: CHLORIDE 103 mEq/L (98-107)
[2023-01-10 06:05] LABS: PHOSPHORUS 2.9 mg/dL (2.5-4.9)
[2023-01-10 08:54] LABS: BG BASE EXCESS 8.4 mmol/L (-2.0-2.0); BG CARBOXYHEMOGLOBIN 0.2 % (0.5-1.5); BG DEOXYHEMOGLOBIN 2.3 % (0.0-5.0); BG FRACTION INSPIRED OXYGEN 30; BG HCO3 ACT 34.1 mmol/L (22.0-26.0); BG METHEMOGLOBIN 0.3 % (0.0-1.5); BG OXYGEN SATURATION 97.7 % (92.0-98.5); BG OXYHEMOGLOBIN 97.2 % (94.0-97.0); BG PCO2 55.2 mmHg (35.0-45.0); BG PH 7.409 (7.350-7.450); BG PO2 105.3 mmHg (75.0-100.0); BG SAMPLE SITE RIGHT RADIAL; BG TOTAL HEMOGLOBIN 8.5 g/dL (12.0-18.0); BG VENT MODE VENT - AC
[2023-01-10] MEDS: LEVETIRACETAM 500MG PREMIX 100 ML IV SCH (09:12)
[2023-01-10] MEDS: CEFEPIME 1,000 MG in DEXTROSE 5% WATER 50 ML IV SCH ×2 (09:12→21:12)
[2023-01-10] MEDS: PANTOPRAZOLE SODIUM 40 MG/VIAL IV SCH (09:12)
[2023-01-10] MEDS: ENOXAPARIN 40MG/0.4ML SYR SUBCUT SCH (09:12)
[2023-01-10 10:17] LABS: BG BASE EXCESS 6.6 mmol/L (-2.0-2.0); BG CARBOXYHEMOGLOBIN 0.3 % (0.5-1.5); BG DEOXYHEMOGLOBIN 3.2 % (0.0-5.0); BG FRACTION INSPIRED OXYGEN 30; BG HCO3 ACT 32.3 mmol/L (22.0-26.0); BG METHEMOGLOBIN 0.4 % (0.0-1.5); BG OXYGEN SATURATION 96.8 % (92.0-98.5); BG OXYHEMOGLOBIN 96.1 % (94.0-97.0); BG PCO2 53.3 mmHg (35.0-45.0); BG PH 7.401 (7.350-7.450); BG PO2 94.6 mmHg (75.0-100.0); BG SAMPLE SITE RIGHT RADIAL; BG VENT MODE VENT - CPAP
[2023-01-10] MEDS ORDERED: RACEPINEPHRINE 2.25% 0.5ML NEB VIAL HHN NR (11:30)
[2023-01-10] MEDS: LEVETIRACETAM 500MG/5ML CUP PO SCH (21:12)
[2023-01-10] MEDS: ACETAMINOPHEN 325MG TABLET PO PRN (22:47)
[2023-01-11] VITALS (37 sets, daily range): BP systolic 92–124; BP diastolic 56–88
[2023-01-11] MEDS: GUAIFENESIN-DM 200MG-20MG/10ML UDC PO SCH ×4 (00:56→18:35)
[2023-01-11] MEDS: METHYLPREDNISOLONE SOD SUCC 40 MG/ML VIAL IV SCH ×3 (00:56→18:35)
[2023-01-11 05:30] LABS: BASOPHILS % 0.1 % (0.0-2.0); HEMATOCRIT. 25.8 % (36.0-48.0); HEMOGLOBIN. 8.2 g/dL (12.0-16.0); LYMPHOCYTES % 9.7 % (20.0-50.0); MEAN CORPUSCULAR HEMOGLOBIN 28.8 pg (28.0-32.0); MEAN CORPUSCULAR VOLUME 90.6 fL (81.0-99.0); MONOCYTES % 2.6 % (2.0-8.0); NEUTROPHILS % 87.6 % (40.0-76.0); PLATELET 377 x1000/uL (130-400); RED BLOOD CELL COUNT 2.85 mill/uL (4.2-5.4); RED CELL DISTRIBUTION WIDTH 14.5 % (11.6-14.6)
[2023-01-11 05:39] LABS: CHLORIDE 103 mEq/L (98-107)
[2023-01-11 08:40] LABS: BG BASE EXCESS 5.3 mmol/L (-2.0-2.0); BG CARBOXYHEMOGLOBIN 0.5 % (0.5-1.5); BG DEOXYHEMOGLOBIN 0.6 % (0.0-5.0); BG FRACTION INSPIRED OXYGEN 32; BG METHEMOGLOBIN 0.5 % (0.0-1.5); BG OXYGEN SATURATION 99.4 % (92.0-98.5); BG OXYHEMOGLOBIN 98.4 % (94.0-97.0); BG PCO2 60.2 mmHg (35.0-45.0); BG PH 7.344 (7.350-7.450); BG PO2 191.2 mmHg (75.0-100.0); BG SAMPLE SITE RIGHT RADIAL; BG VENT MODE NASAL CANNULA
[2023-01-11] MEDS: ENOXAPARIN 40MG/0.4ML SYR SUBCUT SCH (08:57)
[2023-01-11] MEDS: LEVETIRACETAM 500MG/5ML CUP PO SCH ×2 (08:57→20:32)
[2023-01-11] MEDS: CEFEPIME 1,000 MG in DEXTROSE 5% WATER 50 ML IV SCH ×2 (08:57→20:33)
[2023-01-11] MEDS: PANTOPRAZOLE SODIUM 40 MG/VIAL IV SCH (08:57)
[2023-01-11] MEDS ORDERED: IPRATROPIUM/ALBUTEROL 0.5-3(2.5)MG/3ML NEB HHN PRN (09:30)
[2023-01-11] MEDS: IPRATROPIUM/ALBUTEROL 0.5-3(2.5)MG/3ML NEB HHN SCH ×2 (12:10→20:20)
[2023-01-12] VITALS (34 sets, daily range): BP systolic 84–128; BP diastolic 42–96
[2023-01-12] MEDS: GUAIFENESIN-DM 200MG-20MG/10ML UDC PO SCH ×4 (00:17→18:26)
[2023-01-12] MEDS: METHYLPREDNISOLONE SOD SUCC 40 MG/ML VIAL IV SCH ×3 (02:23→18:26)
[2023-01-12] MEDS: IPRATROPIUM/ALBUTEROL 0.5-3(2.5)MG/3ML NEB HHN SCH ×4 (02:29→20:24)
[2023-01-12 05:14] LABS: BASOPHILS % 0.1 % (0.0-2.0); EOSINOPHILS % 0.1 % (0.0-5.0); HEMATOCRIT. 25.4 % (36.0-48.0); HEMOGLOBIN. 7.9 g/dL (12.0-16.0); LYMPHOCYTES % 9.6 % (20.0-50.0); MEAN CORPUSCULAR HEMOGLOBIN 28.4 pg (28.0-32.0); MEAN CORPUSCULAR VOLUME 91.2 fL (81.0-99.0); MONOCYTES % 6.3 % (2.0-8.0); NEUTROPHILS % 83.9 % (40.0-76.0); PLATELET 382 x1000/uL (130-400); RED BLOOD CELL COUNT 2.79 mill/uL (4.2-5.4); RED CELL DISTRIBUTION WIDTH 14.6 % (11.6-14.6)
[2023-01-12 05:21] LABS: CHLORIDE 104 mEq/L (98-107)
[2023-01-12 05:28] LABS: PHOSPHORUS 2.7 mg/dL (2.5-4.9)
[2023-01-12] MEDS: ENOXAPARIN 40MG/0.4ML SYR SUBCUT SCH (08:05)
[2023-01-12] MEDS: PANTOPRAZOLE SODIUM 40 MG/VIAL IV SCH (08:05)
[2023-01-12] MEDS: LEVETIRACETAM 500MG/5ML CUP PO SCH ×2 (08:05→20:32)
[2023-01-12 08:48] LABS: BG BASE EXCESS 6.7 mmol/L (-2.0-2.0); BG CARBOXYHEMOGLOBIN 0.3 % (0.5-1.5); BG DEOXYHEMOGLOBIN 0.5 % (0.0-5.0); BG FRACTION INSPIRED OXYGEN 32; BG HCO3 ACT 33.6 mmol/L (22.0-26.0); BG METHEMOGLOBIN 0.4 % (0.0-1.5); BG OXYGEN SATURATION 99.5 % (92.0-98.5); BG OXYHEMOGLOBIN 98.8 % (94.0-97.0); BG PCO2 62.8 mmHg (35.0-45.0); BG PH 7.346 (7.350-7.450); BG SAMPLE SITE LEFT RADIAL; BG TOTAL HEMOGLOBIN 9.1 g/dL (12.0-18.0); BG VENT MODE NASAL CANNULA
[2023-01-13] VITALS: BP 119/77
[2023-01-13] MEDS: GUAIFENESIN-DM 200MG-20MG/10ML UDC PO SCH ×5 (00:15→23:10)
[2023-01-13] MEDS: IPRATROPIUM/ALBUTEROL 0.5-3(2.5)MG/3ML NEB HHN SCH ×4 (01:42→21:18)
[2023-01-13] MEDS: METHYLPREDNISOLONE SOD SUCC 40 MG/ML VIAL IV SCH ×3 (02:43→17:24)
[2023-01-13 04:00] VITALS: BP 111/71
[2023-01-13 07:20] LABS: BASOPHILS % 0.2 % (0.0-2.0); EOSINOPHILS % 0.1 % (0.0-5.0); HEMOGLOBIN. 8.2 g/dL (12.0-16.0); LYMPHOCYTES % 10.6 % (20.0-50.0); MEAN CORPUSCULAR HEMOGLOBIN 28.4 pg (28.0-32.0); MEAN CORPUSCULAR VOLUME 90.5 fL (81.0-99.0); MEAN PLATELET VOLUME 8.1 fl (7.4-10.4); MONOCYTES % 4.5 % (2.0-8.0); NEUTROPHILS % 84.6 % (40.0-76.0); PLATELET 410 x1000/uL (130-400); RED BLOOD CELL COUNT 2.88 mill/uL (4.2-5.4); RED CELL DISTRIBUTION WIDTH 14.4 % (11.6-14.6)
[2023-01-13 07:57] LABS: CHLORIDE 100 mEq/L (98-107)
[2023-01-13 08:05] VITALS: BP 124/71
[2023-01-13] MEDS: FAMOTIDINE 20MG/2ML VIAL IV SCH ×2 (09:05→21:21)
[2023-01-13] MEDS: ENOXAPARIN 40MG/0.4ML SYR SUBCUT SCH (09:05)
[2023-01-13] MEDS: LEVETIRACETAM 500MG/5ML CUP PO SCH ×2 (09:05→21:21)
[2023-01-13 10:12] LABS: BG BASE EXCESS 4.6 mmol/L (-2.0-2.0); BG CARBOXYHEMOGLOBIN 0.3 % (0.5-1.5); BG DEOXYHEMOGLOBIN 15.2 % (0.0-5.0); BG FRACTION INSPIRED OXYGEN 21; BG HCO3 ACT 30.3 mmol/L (22.0-26.0); BG METHEMOGLOBIN 0.3 % (0.0-1.5); BG OXYGEN SATURATION 84.7 % (92.0-98.5); BG OXYHEMOGLOBIN 84.2 % (94.0-97.0); BG PCO2 50.5 mmHg (35.0-45.0); BG PH 7.396 (7.350-7.450); BG PO2 49.4 mmHg (75.0-100.0); BG SAMPLE SITE RIGHT BRACHIAL; BG TOTAL HEMOGLOBIN 10.3 g/dL (12.0-18.0); BG VENT MODE ROOM AIR
[2023-01-13 12:05] VITALS: BP 122/71
[2023-01-13] MEDS: ASCORBIC ACID 500 MG TABLET PO SCH (12:44)
[2023-01-13] MEDS: HYDROXYCHLOROQUINE SULFATE 200MG TABLET PO SCH (12:44)
[2023-01-13 16:15] VITALS: BP 119/76
[2023-01-13 20:00] VITALS: BP 129/81
[2023-01-14] VITALS: BP 129/85
[2023-01-14] MEDS: METHYLPREDNISOLONE SOD SUCC 40 MG/ML VIAL IV SCH ×3 (01:41→22:06)
[2023-01-14] MEDS: IPRATROPIUM/ALBUTEROL 0.5-3(2.5)MG/3ML NEB HHN SCH ×4 (02:46→20:43)
[2023-01-14 04:00] VITALS: BP 110/76
[2023-01-14] MEDS: GUAIFENESIN-DM 200MG-20MG/10ML UDC PO SCH ×3 (06:08→17:17)
[2023-01-14 07:53] LABS: CHLORIDE 103 mEq/L (98-107)
[2023-01-14 07:58] LABS: BASOPHILS % 0.1 % (0.0-2.0); HEMATOCRIT. 26.2 % (36.0-48.0); HEMOGLOBIN. 8.4 g/dL (12.0-16.0); LYMPHOCYTES % 10.5 % (20.0-50.0); MEAN CORPUSCULAR HEMOGLOBIN 28.9 pg (28.0-32.0); MEAN CORPUSCULAR VOLUME 89.7 fL (81.0-99.0); MEAN PLATELET VOLUME 8.4 fl (7.4-10.4); MONOCYTES % 4.7 % (2.0-8.0); NEUTROPHILS % 84.7 % (40.0-76.0); PLATELET 419 x1000/uL (130-400); RED BLOOD CELL COUNT 2.92 mill/uL (4.2-5.4); RED CELL DISTRIBUTION WIDTH 14.7 % (11.6-14.6)
[2023-01-14 08:00] VITALS: BP 101/66
[2023-01-14] MEDS: FAMOTIDINE 20MG TABLET PO SCH ×2 (09:01→22:05)
[2023-01-14] MEDS: ASPIRIN 81MG EC TABLET PO SCH (09:01)
[2023-01-14] MEDS: ASCORBIC ACID 500 MG TABLET PO SCH (09:01)
[2023-01-14] MEDS: ZINC SULFATE 220 MG ( 50 ) CAPSULE PO SCH (09:01)
[2023-01-14] MEDS: FOLIC ACID 1MG TABLET PO SCH (09:01)
[2023-01-14] MEDS: HYDROXYCHLOROQUINE SULFATE 200MG TABLET PO SCH (09:01)
[2023-01-14] MEDS: LEVETIRACETAM 500MG/5ML CUP PO SCH ×2 (09:02→22:05)
[2023-01-14] MEDS: ENOXAPARIN 30MG/0.3ML SYR SUBCUT SCH (09:02)
[2023-01-14 09:39] LABS: BG BASE EXCESS 6.2 mmol/L (-2.0-2.0); BG CARBOXYHEMOGLOBIN 0.2 % (0.5-1.5); BG DEOXYHEMOGLOBIN 6.8 % (0.0-5.0); BG FRACTION INSPIRED OXYGEN 21; BG HCO3 ACT 31.2 mmol/L (22.0-26.0); BG METHEMOGLOBIN 0.1 % (0.0-1.5); BG OXYGEN SATURATION 93.2 % (92.0-98.5); BG OXYHEMOGLOBIN 92.9 % (94.0-97.0); BG PO2 66.3 mmHg (75.0-100.0); BG SAMPLE SITE RIGHT RADIAL; BG TOTAL HEMOGLOBIN 10.5 g/dL (12.0-18.0); BG VENT MODE ROOM AIR
[2023-01-14 12:00] VITALS: BP 103/70
[2023-01-14 16:00] VITALS: BP 104/67
[2023-01-14 20:00] VITALS: BP 128/81
[2023-01-15] VITALS: BP 115/80
[2023-01-15] MEDS: GUAIFENESIN-DM 200MG-20MG/10ML UDC PO SCH ×4 (01:01→18:06)
[2023-01-15] MEDS: IPRATROPIUM/ALBUTEROL 0.5-3(2.5)MG/3ML NEB HHN SCH ×4 (01:57→21:48)
[2023-01-15 04:00] VITALS: BP 112/68
[2023-01-15 06:59] LABS: BASOPHILS % 0.1 % (0.0-2.0); EOSINOPHILS % 0.1 % (0.0-5.0); HEMATOCRIT. 27.6 % (36.0-48.0); HEMOGLOBIN. 8.8 g/dL (12.0-16.0); LYMPHOCYTES % 12.5 % (20.0-50.0); MEAN CORPUSCULAR VOLUME 91.5 fL (81.0-99.0); MEAN PLATELET VOLUME 8.3 fl (7.4-10.4); NEUTROPHILS % 83.3 % (40.0-76.0); PLATELET 423 x1000/uL (130-400); RED BLOOD CELL COUNT 3.02 mill/uL (4.2-5.4); RED CELL DISTRIBUTION WIDTH 15.3 % (11.6-14.6)
[2023-01-15 07:15] LABS: CHLORIDE 100 mEq/L (98-107)
[2023-01-15 08:00] VITALS: BP 118/75
[2023-01-15] MEDS: FOLIC ACID 1MG TABLET PO SCH (09:40)
[2023-01-15] MEDS: ASCORBIC ACID 500 MG TABLET PO SCH (09:42)
[2023-01-15] MEDS: HYDROXYCHLOROQUINE SULFATE 200MG TABLET PO SCH (09:43)
[2023-01-15] MEDS: ASPIRIN 81MG EC TABLET PO SCH (09:44)
[2023-01-15] MEDS: ZINC SULFATE 220 MG ( 50 ) CAPSULE PO SCH (09:44)
[2023-01-15] MEDS: FAMOTIDINE 20MG TABLET PO SCH ×2 (09:45→21:18)
[2023-01-15] MEDS ORDERED: SODIUM POLYSTYRENE SULFONATE 15 G/60 ML BOT PO NR (09:45)
[2023-01-15] MEDS: LEVETIRACETAM 500MG/5ML CUP PO SCH ×2 (09:45→21:18)
[2023-01-15] MEDS: METHYLPREDNISOLONE SOD SUCC 40 MG/ML VIAL IV SCH ×2 (09:46→21:18)
[2023-01-15] MEDS: ENOXAPARIN 30MG/0.3ML SYR SUBCUT SCH (09:56)
[2023-01-15 12:00] VITALS: BP 105/84
[2023-01-15 16:00] VITALS: BP 114/74
[2023-01-15] MEDS: DILTIAZEM HCL 30MG TABLET PO SCH (18:00)
[2023-01-15 20:00] VITALS: BP 113/80
[2023-01-16] VITALS: BP 112/77
[2023-01-16] MEDS: GUAIFENESIN-DM 200MG-20MG/10ML UDC PO SCH ×5 (00:58→23:52)
[2023-01-16] MEDS: DILTIAZEM HCL 30MG TABLET PO SCH ×5 (00:59→23:52)
[2023-01-16] MEDS: IPRATROPIUM/ALBUTEROL 0.5-3(2.5)MG/3ML NEB HHN SCH ×3 (02:08→12:41)
[2023-01-16 04:00] VITALS: BP 107/65
[2023-01-16 08:00] VITALS: BP 109/72
[2023-01-16] MEDS: LEVETIRACETAM 500MG/5ML CUP PO SCH ×2 (08:48→21:17)
[2023-01-16] MEDS: FOLIC ACID 1MG TABLET PO SCH (08:49)
[2023-01-16] MEDS: HYDROXYCHLOROQUINE SULFATE 200MG TABLET PO SCH (08:49)
[2023-01-16] MEDS: ZINC SULFATE 220 MG ( 50 ) CAPSULE PO SCH (08:49)
[2023-01-16] MEDS: ASPIRIN 81MG EC TABLET PO SCH (08:49)
[2023-01-16] MEDS: FAMOTIDINE 20MG TABLET PO SCH ×2 (08:49→21:17)
[2023-01-16] MEDS: METHYLPREDNISOLONE SOD SUCC 40 MG/ML VIAL IV SCH ×2 (08:50→21:17)
[2023-01-16] MEDS: ASCORBIC ACID 500 MG TABLET PO SCH (08:50)
[2023-01-16] MEDS: ENOXAPARIN 30MG/0.3ML SYR SUBCUT SCH (09:00)
[2023-01-16] MEDS ORDERED: LIDOCAINE HCL 20 MG/ML 100ML BOTTLE MM NR (09:00)
[2023-01-16] MEDS ORDERED: MIDAZOLAM HCL 5 MG/ML VIAL IV NR (09:00)
[2023-01-16] MEDS ORDERED: FENTANYL CITRATE/PF 50MCG/ML 2ML VIAL IV NR (09:00)
[2023-01-16 12:15] VITALS: BP 111/68
[2023-01-16 16:00] VITALS: BP 109/70
[2023-01-16] MEDS ORDERED: PRED10TA23 MT (18:43)
[2023-01-16] MEDS ORDERED: KEPPSOL PO (18:43)
[2023-01-16] MEDS ORDERED: DILT120C88 MT (18:43)
[2023-01-16 20:00] VITALS: BP 109/76
[2023-01-16] MEDS: SODIUM CHLORIDE 0.9% INJ 3ML FLUSH IVF SCH (21:17)
[2023-01-17] VITALS: BP 116/76
[2023-01-17 04:00] VITALS: BP 108/67
[2023-01-17] MEDS: GUAIFENESIN-DM 200MG-20MG/10ML UDC PO SCH ×2 (05:58→12:14)
[2023-01-17] MEDS: SODIUM CHLORIDE 0.9% INJ 3ML FLUSH IVF SCH (05:59)
[2023-01-17] MEDS: DILTIAZEM HCL 30MG TABLET PO SCH ×2 (05:59→12:14)
[2023-01-17 07:44] LABS: CHLORIDE 103 mEq/L (98-107)
[2023-01-17 08:19] VITALS: BP_SYST 115; BP_SYST 154; BP_DIAS 59; BP_DIAS 71
[2023-01-17] MEDS: LEVETIRACETAM 500MG/5ML CUP PO SCH (09:05)
[2023-01-17] MEDS: ASPIRIN 81MG EC TABLET PO SCH (09:06)
[2023-01-17] MEDS: FOLIC ACID 1MG TABLET PO SCH (09:06)
[2023-01-17] MEDS: HYDROXYCHLOROQUINE SULFATE 200MG TABLET PO SCH (09:06)
[2023-01-17] MEDS: ZINC SULFATE 220 MG ( 50 ) CAPSULE PO SCH (09:06)
[2023-01-17] MEDS: FAMOTIDINE 20MG TABLET PO SCH (09:06)
[2023-01-17] MEDS: ASCORBIC ACID 500 MG TABLET PO SCH (09:07)
[2023-01-17] MEDS: ENOXAPARIN 30MG/0.3ML SYR SUBCUT SCH (09:07)
[2023-01-17 12:00] VITALS: BP 114/75
[2023-01-17 13:32] VITALS: BP 114/75
[2023-01-17] MEDS ORDERED: SODIUM CHLORIDE 0.9% INJ 3ML FLUSH IVF SCH (15:15)
[2023-01-17 16:20] VITALS: BP 127/76
[2023-01-18] MEDS ORDERED: IPRATROPIUM/ALBUTEROL 0.5-3(2.5)MG/3ML NEB HHN PRN (20:00)
== END 2023-01-17 19:10 | disposition home health service (06) | DRG 710 ==
LOC: ER 11:06 → CVICU 14:59 → EDBEDREQ 15:07 → EDBEDREQTM 15:07 → EDBEDREQSVC 15:07 → 7EST 01-12 16:00 → 8WST 01-17 15:37
PROVIDERS: ADMIT Internal Medicine; ATTEND Internal Medicine
PROC: 5A1955Z Respiratory Ventilation, Greater than 96 Consecutive Hours (ICD-10-PCS; 2023-01-02)
PROC: 0BH17EZ Insertion of Endotracheal Airway into Trachea, Via Natural or Artificial Opening (ICD-10-PCS; 2023-01-02)
PROC: 4A00X4Z Measurement of Central Nervous Electrical Activity, External Approach (ICD-10-PCS; 2023-01-04)
PROC: 02HV33Z Insertion of Infusion Device into Superior Vena Cava, Percutaneous Approach (ICD-10-PCS; 2023-01-05)
PROC: B548ZZA Ultrasonography of Superior Vena Cava, Guidance (ICD-10-PCS; 2023-01-05)
PROC: 5A09357 Assistance with Respiratory Ventilation, Less than 24 Consecutive Hours, Continuous Positive Airway Pressure (ICD-10-PCS; 2023-01-15)
PROC: 0KBN0ZZ Excision of Right Hip Muscle, Open Approach (ICD-10-PCS; principal; 2023-01-16)
PROC: 0KBP0ZZ Excision of Left Hip Muscle, Open Approach (ICD-10-PCS; 2023-01-16)
DX: A41.9 Sepsis, unspecified organism (principal); G93.41 Metabolic encephalopathy; J18.9 Pneumonia, unspecified organism; E43 Unspecified severe protein-calorie malnutrition; L89.154 Pressure ulcer of sacral region, stage 4; J96.01 Acute respiratory failure with hypoxia; J96.02 Acute respiratory failure with hypercapnia; J43.9 Emphysema, unspecified; I11.0 Hypertensive heart disease with heart failure; E87.20 Acidosis, unspecified; I50.32 Chronic diastolic (congestive) heart failure; E83.39 Other disorders of phosphorus metabolism; L98.429 Non-pressure chronic ulcer of back with unspecified severity; N39.0 Urinary tract infection, site not specified; Z20.822 Contact with and (suspected) exposure to COVID-19; E87.6 Hypokalemia; D64.9 Anemia, unspecified; R65.20 Severe sepsis without septic shock; R56.9 Unspecified convulsions; E87.5 Hyperkalemia; E88.09 Other disorders of plasma-protein metabolism, not elsewhere classified; R73.9 Hyperglycemia, unspecified; I35.1 Nonrheumatic aortic (valve) insufficiency; I45.10 Unspecified right bundle-branch block; M06.9 Rheumatoid arthritis, unspecified; M32.9 Systemic lupus erythematosus, unspecified; Z78.1 Physical restraint status; Z88.0 Allergy status to penicillin; Z88.2 Allergy status to sulfonamides; Z88.8 Allergy status to other drugs, medicaments and biological substances; Z79.899 Other long term (current) drug therapy; Z68.1 Body mass index [BMI] 19.9 or less, adult; Z82.49 Family history of ischemic heart disease and other diseases of the circulatory system
CPT/HCPCS: 31500; 36415; 36573; 36600; 70551; 71045; 80048; 80053; 80305; 81003; 82140; 82375; 82607; 82746; 82805; 82962; 83540; 83550; 83605; 83735; 84100; 84132; 84134; 84145; 84439; 84443; 84478; 84481; 84484; 85025; 87070; 87077; 87186; 87426; 92610; 93005; 93306; 93970; 94002; 94003; 94640; 94660; 99291; A6261; C1725; C9113; J0692; J1650; J1953; J1956; J2060; J2185; J2250; J2704; J2920; J2930; J3010; J3370; J3475; J3490; J7050; J7060

== ENCOUNTER 2023-05-06 11:11 | Inpatient (IN) | payer MEDICAID ==
[~2023-05-06] VITALS: Ht 162.6 cm; Wt 49.1 kg
[~2023-05-06 11:11] MED LIST changes: +DILT120C88 MT; +KEPPSOL PO; -MULT-1146 MT; +MULT-1146 PO; +NITR-87 MT; -P20 MT; +PRED10TA23 MT
[2023-05-06] MEDS ORDERED: SODIUM CHLORIDE 0.9% 1,000 ML IV ONE (11:15)
[2023-05-06] MEDS ORDERED: PIPERACILLIN/TAZOBACTAM 3.375GM/50ML PREMIX IV ONE (11:30)
[2023-05-06] MEDS ORDERED: METHYLPREDNISOLONE SOD SUCC 125MG/2ML (ACT-O-VIAL) IV ONE (11:30)
[2023-05-06] MEDS ORDERED: IPRATROPIUM/ALBUTEROL 0.5-3(2.5)MG/3ML NEB HHN ONE (11:30)
[2023-05-06] MEDS ORDERED: MIDAZOLAM HCL 100 MG in SODIUM CHLORIDE 0.9% 100 ML IV PRN (11:30)
[2023-05-06] MEDS ORDERED: VANCOMYCIN 1G PREMIX 200 ML IV SCH (11:30)
[2023-05-06] MEDS ORDERED: FENTANYL CITRATE 2,500 MCG in SODIUM CHLORIDE 0.9% 200 ML IV PRN (11:30)
[2023-05-06 12:00] VITALS: PULSE 100; RESP 16; O2SAT 98
[2023-05-06] MEDS ORDERED: CEFEPIME 2,000 MG in DEXT 5% WATER 100 ML IV NR (12:00)
[2023-05-06] MEDS: ETOMIDATE 2MG/ML 10ML VIAL IV ONE ×2 (12:04→12:38)
[2023-05-06] MEDS: SUCCINYLCHOLINE CHLORIDE 200MG/10ML IV ONE ×2 (12:05→12:38)
[2023-05-06 12:14] LABS: BG BASE EXCESS 2.7 mmol/L (-2.0-2.0); BG CARBOXYHEMOGLOBIN 0.6 % (0.5-1.5); BG DEOXYHEMOGLOBIN 1.8 % (0.0-5.0); BG FRACTION INSPIRED OXYGEN 100; BG HCO3 ACT 36.3 mmol/L (22.0-26.0); BG METHEMOGLOBIN 0.2 % (0.0-1.5); BG OXYGEN SATURATION 98.2 % (92.0-98.5); BG OXYHEMOGLOBIN 97.4 % (94.0-97.0); BG PCO2 136.4 mmHg (35.0-45.0); BG PH 7.043 (7.350-7.450); BG PO2 120.9 mmHg (75.0-100.0); BG SAMPLE SITE RIGHT RADIAL; BG TOTAL HEMOGLOBIN 10.9 g/dL (12.0-18.0); BG VENT MODE RESUS BAG
[2023-05-06 12:23] LABS: BASOPHILS % 0.7 % (0.0-2.0); CHLORIDE 100 mEq/L (98-107); DIFFERENTIAL COMMENT 0; EOSINOPHILS % 1.3 % (0.0-5.0); HEMATOCRIT. 30.5 % (36.0-48.0); HEMOGLOBIN. 9.1 g/dL (12.0-16.0); INDEX HEMOLYSI 1 (1-3); INDEX ICTERIC 1 (1-4); INDEX LIPEMIC 1 (1-3); LYMPHOCYTES % 13.9 % (20.0-50.0); MEAN CORPUSCULAR HEMOGLOBIN 28.2 pg (28.0-32.0); MEAN CORPUSCULAR VOLUME 94.1 fL (81.0-99.0); MEAN PLATELET VOLUME 8.6 fl (7.4-10.4); MONOCYTES % 3.6 % (2.0-8.0); NEUTROPHILS % 80.5 % (40.0-76.0); PLATELET 361 x1000/uL (130-400); POTASSIUM 3.9 mEq/L (3.5-5.1); RED BLOOD CELL COUNT 3.24 mill/uL (4.2-5.4); SODIUM 137 mEq/L (136-145); WHITE BLOOD COUNT 11.9 x1000/uL (4.5-11.0)
[2023-05-06 12:25] LABS: PROTHROMBIN TIME 10.7 sec (9.6-11.0)
[2023-05-06 12:31] LABS: CLARITY URINE TURBID (CLEAR); COLOR URINE YELLOW (YELLOW); GLUCOSE URINE NEGATIVE (NEGATIVE); KETONES URINE NEGATIVE (NEGATIVE); LEUKOCYTE ESTERASE URINE 3+ (NEGATIVE); NITRITE URINE NEGATIVE (NEGATIVE); OCCULT BLOOD URINE 3+ (NEGATIVE); PH URINE >=9.0 (4.5-8.0); PROTEIN URINE 3+ (NEGATIVE); SPECIFIC GRAVITY URINE 1.017 (1.005-1.030); UROBILINOGEN URINE 0.2 E.U./dL (0.2-1.0)
[2023-05-06 12:33] LABS: ALANINE AMINOTRANSFERASE 9 IU/L (13-61); ALBUMIN 2.6 g/dL (3.4-5.0); ASPARTATE AMINOTRANSFERASE 15 IU/L (15-37); BILIRUBIN TOTAL 0.1 mg/dL (0.1-1.0); CALCIUM 9.5 mg/dL (8.5-10.1); CREATININE 0.8 mg/dL (0.6-1.3); GLUCOSE 209 mg/dL (70-105); NT PRO B-TYPE NATRIURETIC PEP 1153 pg/mL (5-125); PROTEIN TOTAL 9.2 g/dL (6.0-8.3); TROPONIN I HIGH SENSITIVITY 8 ng/L (<54); UREA NITROGEN BLOOD 27 mg/dL (7-21)
[2023-05-06 12:38] VITALS: PULSE 118; RESP 26
[2023-05-06 12:38] LABS: LACTIC ACID 4.2 mmol/L (0.4-2.0)
[2023-05-06 12:38] LABS: TRIPLE PHOSPHATE CRYSTAL URINE 3+ /lpf
[2023-05-06 12:42] LABS: BACTERIA URINE 4+; SQUAMOUS EPITHELIAL CELL URINE 1+ /lpf (RARE/1+); WBC URINE TNTC /hpf (0-2); YEAST URINE NONE SEEN
[2023-05-06 12:43] LABS: RBC URINE TNTC /hpf (0-2)
[2023-05-06] MEDS ORDERED: LORAZEPAM 2MG/ML CPJ IV ONE (13:00)
[2023-05-06] MEDS ORDERED: LEVETIRACETAM 1000MG PREMIX 100 ML IV ONE (13:00)
[2023-05-06 13:10] LABS: CARBON DIOXIDE 31 mEq/L (21-32)
[2023-05-06 13:31] LABS: *AMPHETAMINES SCREEN URINE NEGATIVE (NEGATIVE); *BARBITURATES SCREEN URINE NEGATIVE (NEGATIVE); *BENZODIAZEPINES SCREEN URINE NEGATIVE (NEGATIVE); *COCAINE SCREEN URINE NEGATIVE (NEGATIVE); CANNABINOID URINE SCREEN NEGATIVE (NEGATIVE); ECSTASY MDMA SCREEN URINE NEGATIVE (NEGATIVE); METHADONE URINE SCREEN NEGATIVE (NEGATIVE); OPIATES URINE SCREEN NEGATIVE (NEGATIVE); PHENCYCLIDINE URINE SCREEN NEGATIVE (NEGATIVE)
[2023-05-06] MEDS ORDERED: ONDANSETRON HCL 4MG/2ML INJ IV PRN (14:45)
[2023-05-06] MEDS ORDERED: MAGNESIUM/ALUMINUM HYDROXIDE/SIMETHICONE 30ML UDC PO PRN (14:45)
[2023-05-06] MEDS ORDERED: LEVOFLOXACIN 500MG PREMIX 100 ML IV SCH (14:45)
[2023-05-06] MEDS ORDERED: IPRATROPIUM/ALBUTEROL 0.5-3(2.5)MG/3ML NEB NEB PRN (14:45)
[2023-05-06] MEDS ORDERED: GUAIFENESIN 200MG/10ML SUGAR FREE UDC PO PRN (14:45)
[2023-05-06] MEDS ORDERED: DEXTROSE 50% WATER 50ML SYRINGE IV PRN (14:45)
[2023-05-06] MEDS ORDERED: ACETAMINOPHEN 325MG TABLET PO PRN ×2 (14:45)
[2023-05-06] MEDS ORDERED: IPRATROPIUM/ALBUTEROL 0.5-3(2.5)MG/3ML NEB NEB SCH (15:00)
[2023-05-06] MEDS ORDERED: PIPERACILLIN/TAZ 3.375G PREMIX 50 ML IV NR (15:15)
[2023-05-06] MEDS: SODIUM CHLORIDE 0.9% 1,000 ML IV SCH (15:42)
[2023-05-06 15:51] VITALS: PULSE 98; RESP 26
[2023-05-06] MEDS ORDERED: ENOXAPARIN 40MG/0.4ML SYR SUBCUT SCH (16:00)
[2023-05-06] MEDS ORDERED: VANCOMYCIN 1G PREMIX 200 ML IV NR (16:00)
[2023-05-06] MEDS ORDERED: MIDAZOLAM HCL 100 MG in SODIUM CHLORIDE 0.9% 80 ML IV PRN (16:15)
[2023-05-06] MEDS: BLOOD SUGAR DIAGNOSTIC STRIP TEST SCH ×2 (17:00→20:25)
[2023-05-06 17:03] VITALS: PULSE 98; RESP 26
[2023-05-06 17:10] LABS: BG BASE EXCESS 4.9 mmol/L (-2.0-2.0); BG CARBOXYHEMOGLOBIN 0.3 % (0.5-1.5); BG DEOXYHEMOGLOBIN 0.1 % (0.0-5.0); BG FRACTION INSPIRED OXYGEN 100; BG HCO3 ACT 29.1 mmol/L (22.0-26.0); BG METHEMOGLOBIN 0.2 % (0.0-1.5); BG OXYGEN SATURATION 99.9 % (92.0-98.5); BG OXYHEMOGLOBIN 99.4 % (94.0-97.0); BG PCO2 41.4 mmHg (35.0-45.0); BG PH 7.465 (7.350-7.450); BG PO2 459.6 mmHg (75.0-100.0); BG SAMPLE SITE RIGHT RADIAL; BG VENT MODE VENT - PRVC
[2023-05-06] MEDS: INSULIN LISPRO 100 UNITS/ML SUBCUT SCH ×2 (18:20→20:26)
[2023-05-06] MEDS: DOXYCYCLINE 100MG in DEXTROSE 5% WATER 100ML IV SCH (20:04)
[2023-05-06] MEDS: METHYLPREDNISOLONE SOD SUCC 125MG/2ML (ACT-O-VIAL) IV SCH ×2 (20:05→21:55)
[2023-05-06] MEDS: LEVETIRACETAM 500MG TABLET PO SCH (20:23)
[2023-05-06 21:00] VITALS: PULSE 100; RESP 16
[2023-05-06] MEDS: IPRATROPIUM/ALBUTEROL 0.5-3(2.5)MG/3ML NEB NEB SCH (21:00)
[2023-05-06] MEDS ORDERED: METHYLPREDNISOLONE SOD SUCC 125MG/2ML (ACT-O-VIAL) IV SCH (22:00)
[2023-05-06] MEDS ORDERED: METHYLPREDNISOLONE SOD SUCC 40MG/ML (ACT-O-VIAL) IV SCH (22:00)
[2023-05-06] MEDS ORDERED: PIPERACILLIN/TAZOBACTAM 3.375 G in DEXTROSE 5% WATER 50 ML IV SCH (22:00)
[2023-05-07] VITALS (39 sets, daily range): BP systolic 95–137; BP diastolic 72–98; PULSE 73–100; RESP 16–22; TEMP 97.7
[2023-05-07] MEDS: IPRATROPIUM/ALBUTEROL 0.5-3(2.5)MG/3ML NEB NEB SCH ×6 (00:07→21:31)
[2023-05-07] MEDS: SODIUM CHLORIDE 0.9% 1,000 ML IV SCH ×3 (01:01→20:45)
[2023-05-07] MEDS: METHYLPREDNISOLONE SOD SUCC 125MG/2ML (ACT-O-VIAL) IV SCH ×2 (03:52→11:13)
[2023-05-07] MEDS: DOXYCYCLINE 100MG in DEXTROSE 5% WATER 100ML IV SCH ×2 (03:52→16:17)
[2023-05-07 05:10] LABS: HEMATOCRIT. 26.2 % (36.0-48.0); HEMOGLOBIN. 8.2 g/dL (12.0-16.0); LYMPHOCYTES % 9.5 % (20.0-50.0); MEAN CORPUSCULAR HEMOGLOBIN 27.9 pg (28.0-32.0); MEAN CORPUSCULAR HGB CONC 31.2 g/dL (31.0-37.0); MEAN CORPUSCULAR VOLUME 89.4 fL (81.0-99.0); MEAN PLATELET VOLUME 7.7 fl (7.4-10.4); MONOCYTES % 1.1 % (2.0-8.0); NEUTROPHILS % 89.4 % (40.0-76.0); PLATELET 274 x1000/uL (130-400); RED BLOOD CELL COUNT 2.93 mill/uL (4.2-5.4); RED CELL DISTRIBUTION WIDTH 15.3 % (11.6-14.6); WHITE BLOOD COUNT 8.9 x1000/uL (4.5-11.0)
[2023-05-07 05:18] LABS: CHLORIDE 104 mEq/L (98-107); INDEX HEMOLYSI 1 (1-3); INDEX ICTERIC 1 (1-4); INDEX LIPEMIC 1 (1-3); POTASSIUM 4.7 mEq/L (3.5-5.1); SODIUM 136 mEq/L (136-145)
[2023-05-07 05:26] LABS: ALANINE AMINOTRANSFERASE 11 IU/L (13-61); ALBUMIN 2.4 g/dL (3.4-5.0); ASPARTATE AMINOTRANSFERASE 11 IU/L (15-37); BILIRUBIN TOTAL 0.3 mg/dL (0.1-1.0); CALCIUM 8.9 mg/dL (8.5-10.1); CARBON DIOXIDE 31 mEq/L (21-32); CREATININE 0.8 mg/dL (0.6-1.3); GLUCOSE 149 mg/dL (70-105); PHOSPHORUS 2.7 mg/dL (2.5-4.9); PROTEIN TOTAL 8.5 g/dL (6.0-8.3); UREA NITROGEN BLOOD 30 mg/dL (7-21)
[2023-05-07] MEDS ORDERED: VANCOMYCIN 750MG PREMIX 150 ML IV SCH ×2 (06:00→07:30)
[2023-05-07] MEDS: INSULIN LISPRO 100 UNITS/ML SUBCUT SCH ×3 (06:29→21:00)
[2023-05-07] MEDS: BLOOD SUGAR DIAGNOSTIC STRIP TEST SCH ×3 (06:29→21:57)
[2023-05-07] MEDS ORDERED: PIPERACILLIN/TAZOBACTAM 3.375 G in DEXTROSE 5% WATER 50 ML IV SCH (06:30)
[2023-05-07] MEDS ORDERED: VANCOMYCIN 1G PREMIX 200 ML IV SCH (09:00)
[2023-05-07] MEDS ORDERED: PIPERACILLIN/TAZ 3.375G PREMIX 50 ML IV SCH (09:00)
[2023-05-07] MEDS: LEVETIRACETAM 500MG TABLET PO SCH ×2 (09:59→22:01)
[2023-05-07 10:24] LABS: BG BASE EXCESS 3.9 mmol/L (-2.0-2.0); BG CARBOXYHEMOGLOBIN 0.5 % (0.5-1.5); BG DEOXYHEMOGLOBIN 16.4 % (0.0-5.0); BG FRACTION INSPIRED OXYGEN 40; BG HCO3 ACT 28.5 mmol/L (22.0-26.0); BG METHEMOGLOBIN 0.3 % (0.0-1.5); BG OXYGEN SATURATION 83.5 % (92.0-98.5); BG OXYHEMOGLOBIN 82.8 % (94.0-97.0); BG PH 7.439 (7.350-7.450); BG PO2 45.9 mmHg (75.0-100.0); BG SAMPLE SITE RIGHT BRACHIAL; BG TOTAL HEMOGLOBIN 8.2 g/dL (12.0-18.0); BG VENT MODE VENT - AC
[2023-05-07] MEDS ORDERED: FENTANYL CITRATE/PF 2,500 MCG in SODIUM CHLORIDE 0.9% 200 ML IV PRN (13:15)
[2023-05-07] MEDS ORDERED: PIPERACILLIN/TAZOBACTAM 3.375G in DEXT 5% WATER 50ML IV SCH (14:00)
[2023-05-07] MEDS: ENOXAPARIN 40MG/0.4ML SYR SUBCUT SCH (15:42)
[2023-05-07] MEDS: PIPERACILLIN/TAZOBACTAM 3.375G in DEXT 5% WATER 50ML IV SCH ×2 (16:17→22:02)
[2023-05-07] MEDS: MIDAZOLAM HCL 100 MG in SODIUM CHLORIDE 0.9% 80 ML IV PRN (16:31)
[2023-05-07] MEDS: WARFARIN SODIUM 5MG TABLET PO SCH (17:41)
[2023-05-07] MEDS: METHYLPREDNISOLONE SOD SUCC 40MG/ML (ACT-O-VIAL) IV SCH (17:41)
[2023-05-07 20:57] LABS: INDEX HEMOLYSI 1 (1-3); INDEX ICTERIC 1 (1-4); INDEX LIPEMIC 1 (1-3)
[2023-05-07 20:58] LABS: PARTIAL THROMBOPLASTIN TIME 28.2 sec (23.4-31.0); PROTHROMBIN TIME 10.9 sec (9.6-11.0)
[2023-05-07] MEDS ORDERED: FAMOTIDINE 20MG TABLET PO SCH (21:00)
[2023-05-07 21:03] LABS: AMMONIA 29 uMol/L (<32)
[2023-05-07 21:05] LABS: IRON 58 ug/dL (50-175); NT PRO B-TYPE NATRIURETIC PEP 1324 pg/mL (5-125); TOTAL IRON BINDING CAPACITY 221 ug/dL (250-450)
[2023-05-07 23:15] LABS: FOLIC ACID (FOLATE) SERUM 15.5 ng/mL (>5.38)
[2023-05-08] VITALS (70 sets, daily range): BP systolic 102–143; BP diastolic 72–94; PULSE 59–92; RESP 1–31; TEMP 97.5–98.1
[2023-05-08] MEDS: METHYLPREDNISOLONE SOD SUCC 40MG/ML (ACT-O-VIAL) IV SCH ×2 (00:56→06:56)
[2023-05-08] MEDS: SODIUM CHLORIDE 0.9% 1,000 ML IV SCH ×2 (00:56→17:26)
[2023-05-08] MEDS: IPRATROPIUM/ALBUTEROL 0.5-3(2.5)MG/3ML NEB NEB SCH ×6 (01:04→20:39)
[2023-05-08] MEDS: DOXYCYCLINE 100MG in DEXTROSE 5% WATER 100ML IV SCH ×2 (04:00→15:00)
[2023-05-08 05:11] LABS: BASOPHILS % 0.1 % (0.0-2.0); HEMATOCRIT. 27.4 % (36.0-48.0); HEMOGLOBIN. 8.5 g/dL (12.0-16.0); MEAN CORPUSCULAR HEMOGLOBIN 28.3 pg (28.0-32.0); MEAN CORPUSCULAR HGB CONC 31.1 g/dL (31.0-37.0); MEAN CORPUSCULAR VOLUME 90.8 fL (81.0-99.0); MEAN PLATELET VOLUME 8.3 fl (7.4-10.4); MONOCYTES % 3.3 % (2.0-8.0); NEUTROPHILS % 84.6 % (40.0-76.0); PLATELET 240 x1000/uL (130-400); RED BLOOD CELL COUNT 3.02 mill/uL (4.2-5.4); RED CELL DISTRIBUTION WIDTH 15.7 % (11.6-14.6); WHITE BLOOD COUNT 6.9 x1000/uL (4.5-11.0)
[2023-05-08 05:15] LABS: CHLORIDE 107 mEq/L (98-107); INDEX HEMOLYSI 4 (1-3); INDEX ICTERIC 1 (1-4); INDEX LIPEMIC 1 (1-3); SODIUM 138 mEq/L (136-145)
[2023-05-08 05:17] LABS: CALCIUM 8.9 mg/dL (8.5-10.1); CARBON DIOXIDE 28 mEq/L (21-32); GLUCOSE 121 mg/dL (70-105); UREA NITROGEN BLOOD 30 mg/dL (7-21)
[2023-05-08 05:22] LABS: CREATININE 0.6 mg/dL (0.6-1.3); VANCOMYCIN TROUGH 29.3 ug/mL (5.0-10.0)
[2023-05-08 05:23] LABS: POTASSIUM 4.9 mEq/L (3.5-5.1)
[2023-05-08] MEDS ORDERED: VANCOMYCIN 1G PREMIX 200 ML IV SCH (06:00)
[2023-05-08] MEDS: BLOOD SUGAR DIAGNOSTIC STRIP TEST SCH ×4 (06:53→21:36)
[2023-05-08] MEDS: INSULIN LISPRO 100 UNITS/ML SUBCUT SCH ×4 (06:53→21:00)
[2023-05-08] MEDS: PIPERACILLIN/TAZOBACTAM 3.375G in DEXT 5% WATER 50ML IV SCH ×3 (06:56→21:37)
[2023-05-08 07:43] LABS: BG BASE EXCESS 2.7 mmol/L (-2.0-2.0); BG CARBOXYHEMOGLOBIN 0.2 % (0.5-1.5); BG DEOXYHEMOGLOBIN 0.6 % (0.0-5.0); BG HCO3 ACT 27.5 mmol/L (22.0-26.0); BG METHEMOGLOBIN 0.3 % (0.0-1.5); BG OXYGEN SATURATION 99.4 % (92.0-98.5); BG OXYHEMOGLOBIN 98.9 % (94.0-97.0); BG PCO2 43.6 mmHg (35.0-45.0); BG PH 7.417 (7.350-7.450); BG PO2 181.4 mmHg (75.0-100.0); BG SAMPLE SITE RIGHT BRACHIAL; BG TOTAL HEMOGLOBIN 7.6 g/dL (12.0-18.0); BG VENT MODE VENT - AC
[2023-05-08] MEDS: ENOXAPARIN 40MG/0.4ML SYR SUBCUT SCH (08:08)
[2023-05-08] MEDS: LEVETIRACETAM 500MG TABLET PO SCH ×2 (08:08→21:36)
[2023-05-08] MEDS: FAMOTIDINE 20MG TABLET PO SCH ×2 (08:09→21:36)
[2023-05-08 09:10] LABS: ANTI-DNA DOUBLE STRANDED QUANT 2 IU/mL (0-9)
[2023-05-08 10:05] LABS: INDEX HEMOLYSI 1 (1-3)
[2023-05-08 10:13] LABS: CREATINE KINASE 23 IU/L (26-192)
[2023-05-08] MEDS: METHYLPREDNISOLONE SOD SUCC 125MG/2ML (ACT-O-VIAL) IV SCH ×2 (11:25→17:25)
[2023-05-08] MEDS ORDERED: METHYLPREDNISOLONE SOD SUCC 125MG/2ML (ACT-O-VIAL) IV SCH (12:00)
[2023-05-08] MEDS: WARFARIN SODIUM 5MG TABLET PO SCH (17:25)
[2023-05-08] MEDS: THIAMINE HCL 100MG TABLET PO SCH (21:36)
[2023-05-09] VITALS (99 sets, daily range): BP systolic 94–151; BP diastolic 56–112; PULSE 49–96; RESP 11–28; TEMP 97.5–98.7
[2023-05-09] MEDS: IPRATROPIUM/ALBUTEROL 0.5-3(2.5)MG/3ML NEB NEB SCH ×6 (00:35→20:31)
[2023-05-09] MEDS: VANCOMYCIN 500MG PREMIX 100 ML IV SCH ×2 (00:47→17:51)
[2023-05-09] MEDS: METHYLPREDNISOLONE SOD SUCC 125MG/2ML (ACT-O-VIAL) IV SCH ×2 (00:47→05:19)
[2023-05-09] MEDS: DOXYCYCLINE 100MG in DEXTROSE 5% WATER 100ML IV SCH ×2 (04:53→17:51)
[2023-05-09] MEDS: SODIUM CHLORIDE 0.9% 1,000 ML IV SCH ×2 (04:53→12:19)
[2023-05-09 05:14] LABS: INR 1.3; PROTHROMBIN TIME 13.8 sec (9.6-11.0)
[2023-05-09 05:16] LABS: HEMOGLOBIN. 7.4 g/dL (12.0-16.0); LYMPHOCYTES % 9.5 % (20.0-50.0); MEAN CORPUSCULAR HEMOGLOBIN 27.9 pg (28.0-32.0); MEAN CORPUSCULAR HGB CONC 30.8 g/dL (31.0-37.0); MEAN CORPUSCULAR VOLUME 90.6 fL (81.0-99.0); MEAN PLATELET VOLUME 8.6 fl (7.4-10.4); MONOCYTES % 4.9 % (2.0-8.0); NEUTROPHILS % 85.6 % (40.0-76.0); PLATELET 253 x1000/uL (130-400); RED BLOOD CELL COUNT 2.64 mill/uL (4.2-5.4); RED CELL DISTRIBUTION WIDTH 15.5 % (11.6-14.6); WHITE BLOOD COUNT 5.8 x1000/uL (4.5-11.0)
[2023-05-09] MEDS: PIPERACILLIN/TAZOBACTAM 3.375G in DEXT 5% WATER 50ML IV SCH ×3 (05:19→21:09)
[2023-05-09 05:23] LABS: CHLORIDE 110 mEq/L (98-107); INDEX HEMOLYSI 1 (1-3); INDEX ICTERIC 1 (1-4); INDEX LIPEMIC 1 (1-3); POTASSIUM 3.5 mEq/L (3.5-5.1); SODIUM 139 mEq/L (136-145)
[2023-05-09 05:29] LABS: CALCIUM 8.8 mg/dL (8.5-10.1); CARBON DIOXIDE 25 mEq/L (21-32); CREATININE 0.7 mg/dL (0.6-1.3); GLUCOSE 95 mg/dL (70-105); UREA NITROGEN BLOOD 31 mg/dL (7-21)
[2023-05-09] MEDS: INSULIN LISPRO 100 UNITS/ML SUBCUT SCH ×4 (06:10→21:00)
[2023-05-09] MEDS: BLOOD SUGAR DIAGNOSTIC STRIP TEST SCH ×4 (06:10→21:10)
[2023-05-09] MEDS: MIDAZOLAM HCL 100 MG in SODIUM CHLORIDE 0.9% 80 ML IV PRN ×2 (06:13→19:15)
[2023-05-09 08:34] LABS: BG BASE EXCESS 1.4 mmol/L (-2.0-2.0); BG CARBOXYHEMOGLOBIN 0.3 % (0.5-1.5); BG DEOXYHEMOGLOBIN 0.8 % (0.0-5.0); BG FRACTION INSPIRED OXYGEN 40; BG HCO3 ACT 26.4 mmol/L (22.0-26.0); BG METHEMOGLOBIN 0.3 % (0.0-1.5); BG OXYGEN SATURATION 99.2 % (92.0-98.5); BG OXYHEMOGLOBIN 98.6 % (94.0-97.0); BG PCO2 43.4 mmHg (35.0-45.0); BG PH 7.402 (7.350-7.450); BG PO2 198.9 mmHg (75.0-100.0); BG SAMPLE SITE LEFT RADIAL; BG TOTAL HEMOGLOBIN 9.2 g/dL (12.0-18.0); BG VENT MODE VENT - AC
[2023-05-09 09:10] LABS: COMPLEMENT C3 103 mg/dL (82-167); COMPLEMENT C4 13 mg/dL (12-38)
[2023-05-09] MEDS: LEVETIRACETAM 500MG TABLET PO SCH ×2 (10:26→21:09)
[2023-05-09] MEDS: THIAMINE HCL 100MG TABLET PO SCH (10:26)
[2023-05-09] MEDS: ENOXAPARIN 40MG/0.4ML SYR SUBCUT SCH (10:26)
[2023-05-09] MEDS: FAMOTIDINE 20MG TABLET PO SCH ×2 (10:26→21:09)
[2023-05-09 11:03] LABS: BG BASE EXCESS -2.6 mmol/L (-2.0-2.0); BG CARBOXYHEMOGLOBIN 0.3 % (0.5-1.5); BG FRACTION INSPIRED OXYGEN 40; BG HCO3 ACT 23.7 mmol/L (22.0-26.0); BG METHEMOGLOBIN 0.3 % (0.0-1.5); BG OXYHEMOGLOBIN 98.4 % (94.0-97.0); BG PH 7.311 (7.350-7.450); BG PO2 167.7 mmHg (75.0-100.0); BG SAMPLE SITE RIGHT BRACHIAL; BG TOTAL HEMOGLOBIN 8.9 g/dL (12.0-18.0); BG VENT MODE VENT - CPAP
[2023-05-09] MEDS ORDERED: METHYLPREDNISOLONE SOD SUCC 125MG/2ML (ACT-O-VIAL) IV SCH (12:00)
[2023-05-09] MEDS: D5W IV SCH ×2 (12:19→17:51)
[2023-05-09] MEDS: METHYLPREDNISOLONE IV SCH ×2 (12:19→17:51)
[2023-05-09 13:06] LABS: RNP ANTIBODY 1.2 AI (0.0-0.9); SMITH ANTIBODY 0.4 AI (0.0-0.9)
[2023-05-09 15:06] LABS: TOTAL VOLUME 24 HR 775 mL
[2023-05-09] MEDS ORDERED: LACTULOSE 20G/30ML UDC PO NR (17:15)
[2023-05-09] MEDS: WARFARIN SODIUM 5MG TABLET PO SCH (17:51)
[2023-05-10] VITALS (64 sets, daily range): BP systolic 118–157; BP diastolic 71–113; PULSE 47–100; RESP 12–34; TEMP 97.6–98.6; O2SAT 93
[2023-05-10] MEDS: IPRATROPIUM/ALBUTEROL 0.5-3(2.5)MG/3ML NEB NEB SCH ×7 (00:26→23:42)
[2023-05-10] MEDS: D5W IV SCH ×4 (00:41→18:01)
[2023-05-10] MEDS: METHYLPREDNISOLONE IV SCH ×4 (00:41→18:01)
[2023-05-10] MEDS: DOXYCYCLINE 100MG in DEXTROSE 5% WATER 100ML IV SCH ×2 (04:36→16:55)
[2023-05-10 05:48] LABS: BASOPHILS % 0.1 % (0.0-2.0); HEMATOCRIT. 24.2 % (36.0-48.0); HEMOGLOBIN. 7.5 g/dL (12.0-16.0); LYMPHOCYTES % 7.9 % (20.0-50.0); MEAN CORPUSCULAR HEMOGLOBIN 27.6 pg (28.0-32.0); MEAN PLATELET VOLUME 8.7 fl (7.4-10.4); MONOCYTES % 3.7 % (2.0-8.0); NEUTROPHILS % 88.3 % (40.0-76.0); PLATELET 267 x1000/uL (130-400); RED BLOOD CELL COUNT 2.72 mill/uL (4.2-5.4); RED CELL DISTRIBUTION WIDTH 15.1 % (11.6-14.6); WHITE BLOOD COUNT 6.4 x1000/uL (4.5-11.0)
[2023-05-10 05:59] LABS: INR 2.3; PROTHROMBIN TIME 23.8 sec (9.6-11.0)
[2023-05-10 06:01] LABS: CALCIUM 8.2 mg/dL (8.5-10.1); CHLORIDE 114 mEq/L (98-107); INDEX HEMOLYSI 1 (1-3); INDEX ICTERIC 1 (1-4); INDEX LIPEMIC 1 (1-3); POTASSIUM 3.6 mEq/L (3.5-5.1); SODIUM 140 mEq/L (136-145)
[2023-05-10 06:05] LABS: ALBUMIN 2.3 g/dL (3.4-5.0); CARBON DIOXIDE 25 mEq/L (21-32); CREATININE 0.6 mg/dL (0.6-1.3); GLUCOSE 89 mg/dL (70-105); UREA NITROGEN BLOOD 35 mg/dL (7-21)
[2023-05-10] MEDS: PIPERACILLIN/TAZOBACTAM 3.375G in DEXT 5% WATER 50ML IV SCH ×3 (06:45→21:12)
[2023-05-10] MEDS: INSULIN LISPRO 100 UNITS/ML SUBCUT SCH ×4 (06:45→20:47)
[2023-05-10] MEDS: BLOOD SUGAR DIAGNOSTIC STRIP TEST SCH ×4 (06:45→20:48)
[2023-05-10 07:19] LABS: BG BASE EXCESS -2.5 mmol/L (-2.0-2.0); BG CARBOXYHEMOGLOBIN 0.3 % (0.5-1.5); BG DEOXYHEMOGLOBIN 1.4 % (0.0-5.0); BG HCO3 ACT 22.9 mmol/L (22.0-26.0); BG METHEMOGLOBIN 0.3 % (0.0-1.5); BG OXYGEN SATURATION 98.6 % (92.0-98.5); BG PCO2 42.1 mmHg (35.0-45.0); BG PH 7.354 (7.350-7.450); BG PO2 136.4 mmHg (75.0-100.0); BG SAMPLE SITE RIGHT RADIAL; BG TOTAL HEMOGLOBIN 8.8 g/dL (12.0-18.0); BG VENT MODE VENT - CPAP
[2023-05-10] MEDS: ENOXAPARIN 40MG/0.4ML SYR SUBCUT SCH (08:53)
[2023-05-10] MEDS: THIAMINE HCL 100MG TABLET PO SCH (08:53)
[2023-05-10] MEDS: FAMOTIDINE 20MG TABLET PO SCH ×2 (08:53→20:54)
[2023-05-10] MEDS: ASCORBIC ACID 500 MG TABLET PO SCH (08:54)
[2023-05-10] MEDS: FOLIC ACID/VITAMIN B COMP W-C TABLET PO SCH (08:54)
[2023-05-10] MEDS: LEVETIRACETAM 500MG TABLET PO SCH ×2 (08:54→20:54)
[2023-05-10] MEDS: ZINC SULFATE 220 MG ( 50 ) CAPSULE PO SCH (08:54)
[2023-05-10] MEDS: VANCOMYCIN 500MG PREMIX 100 ML IV SCH (11:51)
[2023-05-10 14:52] LABS: BG BASE EXCESS -2.4 mmol/L (-2.0-2.0); BG CARBOXYHEMOGLOBIN 0.3 % (0.5-1.5); BG DEOXYHEMOGLOBIN 3.7 % (0.0-5.0); BG FRACTION INSPIRED OXYGEN 36; BG HCO3 ACT 24.5 mmol/L (22.0-26.0); BG METHEMOGLOBIN 0.3 % (0.0-1.5); BG OXYGEN SATURATION 96.3 % (92.0-98.5); BG OXYHEMOGLOBIN 95.7 % (94.0-97.0); BG PCO2 51.9 mmHg (35.0-45.0); BG PH 7.292 (7.350-7.450); BG PO2 94.3 mmHg (75.0-100.0); BG SAMPLE SITE RIGHT RADIAL; BG TOTAL HEMOGLOBIN 11.1 g/dL (12.0-18.0); BG VENT MODE NASAL CANNULA
[2023-05-10 15:11] LABS: ACTIN (SMOOTH MUSCLE) ANTIBODY 34 Units (0-19)
[2023-05-10 17:06] LABS: ANA IFA Positive (.)
[2023-05-10 17:08] LABS: PREALBUMIN 13.7 mg/dL (20.0-40.0)
[2023-05-10] MEDS ORDERED: WARFARIN SODIUM 2MG TABLET PO NR (18:00)
[2023-05-11] VITALS (27 sets, daily range): BP systolic 129–170; BP diastolic 82–100; PULSE 60–101; RESP 18–36; TEMP 97.4–98; O2SAT 91–99
[2023-05-11] MEDS: METHYLPREDNISOLONE IV SCH ×5 (00:15→23:38)
[2023-05-11] MEDS: D5W IV SCH ×5 (00:15→23:38)
[2023-05-11] MEDS: DOXYCYCLINE 100MG in DEXTROSE 5% WATER 100ML IV SCH ×2 (03:49→16:00)
[2023-05-11] MEDS: IPRATROPIUM/ALBUTEROL 0.5-3(2.5)MG/3ML NEB NEB SCH ×4 (04:07→16:58)
[2023-05-11 04:43] LABS: INR 2.1; PROTHROMBIN TIME 21.6 sec (9.6-11.0)
[2023-05-11] MEDS: VANCOMYCIN 500MG PREMIX 100 ML IV SCH (05:07)
[2023-05-11] MEDS: CLONIDINE 0.1MG TABLET PO PRN ×2 (05:08→23:19)
[2023-05-11] MEDS: PIPERACILLIN/TAZOBACTAM 3.375G in DEXT 5% WATER 50ML IV SCH ×3 (05:09→21:03)
[2023-05-11] MEDS: BLOOD SUGAR DIAGNOSTIC STRIP TEST SCH ×4 (06:41→21:00)
[2023-05-11] MEDS: INSULIN LISPRO 100 UNITS/ML SUBCUT SCH ×4 (06:42→21:00)
[2023-05-11] MEDS: THIAMINE HCL 100MG TABLET PO SCH (09:00)
[2023-05-11 09:11] LABS: ALDOLASE 5.8 U/L (3.3-10.3); ANGIOTENSION CONVERTING ENZYME 22 U/L (14-82)
[2023-05-11 09:11] LABS: BG BASE EXCESS -0.4 mmol/L (-2.0-2.0); BG CARBOXYHEMOGLOBIN 0.1 % (0.5-1.5); BG DEOXYHEMOGLOBIN 0.7 % (0.0-5.0); BG FRACTION INSPIRED OXYGEN 40; BG HCO3 ACT 24.9 mmol/L (22.0-26.0); BG METHEMOGLOBIN 0.2 % (0.0-1.5); BG OXYGEN SATURATION 99.3 % (92.0-98.5); BG PCO2 44.1 mmHg (35.0-45.0); BG SAMPLE SITE RIGHT RADIAL; BG TOTAL HEMOGLOBIN 8.8 g/dL (12.0-18.0); BG VENT MODE NASAL CANNULA
[2023-05-11] MEDS: FAMOTIDINE 20MG TABLET PO SCH ×2 (09:52→21:02)
[2023-05-11] MEDS: LEVETIRACETAM 500MG TABLET PO SCH ×2 (09:52→21:02)
[2023-05-11] MEDS: FOLIC ACID/VITAMIN B COMP W-C TABLET PO SCH (09:52)
[2023-05-11] MEDS: ASCORBIC ACID 500 MG TABLET PO SCH (09:52)
[2023-05-11] MEDS: ZINC SULFATE 220 MG ( 50 ) CAPSULE PO SCH (09:52)
[2023-05-11] MEDS: ENOXAPARIN 40MG/0.4ML SYR SUBCUT SCH (09:53)
[2023-05-11 10:07] LABS: HEMATOCRIT 26.9 % (36.0-48.0); HEMOGLOBIN 8.5 g/dL (12.0-16.0); MEAN CORPUSCULAR HEMOGLOBIN 28.2 pg (28.0-32.0); MEAN CORPUSCULAR HGB CONC 31.7 g/dL (31.0-37.0); MEAN CORPUSCULAR VOLUME 88.9 fL (81.0-99.0); PLATELET 274 x1000/uL (130-400); RED BLOOD CELL COUNT 3.02 mill/uL (4.2-5.4); RED CELL DISTRIBUTION WIDTH 15.9 % (11.6-14.6); WHITE BLOOD COUNT 5.7 x1000/uL (4.5-11.0)
[2023-05-11 10:25] LABS: CHLORIDE 109 mEq/L (98-107); INDEX HEMOLYSI 1 (1-3); INDEX ICTERIC 1 (1-4); INDEX LIPEMIC 1 (1-3); SODIUM 140 mEq/L (136-145)
[2023-05-11 10:30] LABS: CARBON DIOXIDE 27 mEq/L (21-32); CREATININE 0.7 mg/dL (0.6-1.3); GLUCOSE 156 mg/dL (70-105); UREA NITROGEN BLOOD 43 mg/dL (7-21)
[2023-05-11] MEDS ORDERED: ZINC220T3 PO (16:52)
[2023-05-11] MEDS ORDERED: ZINC30CA PO (16:52)
[2023-05-11] MEDS ORDERED: ZINC1CAP2 PO (16:54)
[2023-05-11 17:06] LABS: ANTI-CARDIOLIPIN AB IGA < 9 APL U/mL (0-11); ANTI-CARDIOLIPIN AB IGG < 9 GPL U/mL (0-14); ANTI-CARDIOLIPIN AB IGM 32 MPL U/mL (0-12)
[2023-05-11] MEDS ORDERED: WARFARIN SODIUM 4MG TABLET PO NR (18:00)
[2023-05-11 19:09] LABS: ANTI-MYELOPEROXIDASE AB 0.3 units (0.0-0.9); ANTI-PROTEINASE 3 ABS < 0.2 units (0.0-0.9)
[2023-05-12] VITALS (16 sets, daily range): BP systolic 121–170; BP diastolic 75–86; PULSE 53–90; RESP 18–33; TEMP 98; O2SAT 92
[2023-05-12 05:03] LABS: BASOPHILS % 0.1 % (0.0-2.0); EOSINOPHILS % 0.1 % (0.0-5.0); HEMOGLOBIN. 7.7 g/dL (12.0-16.0); LYMPHOCYTES % 9.2 % (20.0-50.0); MEAN CORPUSCULAR HEMOGLOBIN 27.9 pg (28.0-32.0); MEAN CORPUSCULAR HGB CONC 29.8 g/dL (31.0-37.0); MEAN CORPUSCULAR VOLUME 93.9 fL (81.0-99.0); MEAN PLATELET VOLUME 8.8 fl (7.4-10.4); MONOCYTES % 3.4 % (2.0-8.0); NEUTROPHILS % 87.2 % (40.0-76.0); PLATELET 203 x1000/uL (130-400); RED BLOOD CELL COUNT 2.77 mill/uL (4.2-5.4); RED CELL DISTRIBUTION WIDTH 16.1 % (11.6-14.6); WHITE BLOOD COUNT 7.5 x1000/uL (4.5-11.0)
[2023-05-12 05:10] LABS: CHLORIDE 112 mEq/L (98-107); INDEX HEMOLYSI 2 (1-3); INDEX ICTERIC 1 (1-4); INDEX LIPEMIC 1 (1-3); POTASSIUM 4.3 mEq/L (3.5-5.1); SODIUM 139 mEq/L (136-145)
[2023-05-12 05:11] LABS: CALCIUM 8.4 mg/dL (8.5-10.1)
[2023-05-12 05:15] LABS: CARBON DIOXIDE 22 mEq/L (21-32); CREATININE 0.6 mg/dL (0.6-1.3); GLUCOSE 125 mg/dL (70-105); UREA NITROGEN BLOOD 42 mg/dL (7-21)
[2023-05-12] MEDS: METHYLPREDNISOLONE IV SCH (05:27)
[2023-05-12] MEDS: D5W IV SCH (05:27)
[2023-05-12 05:36] LABS: INR 1.9; PROTHROMBIN TIME 19.2 sec (9.6-11.0)
[2023-05-12] MEDS: INSULIN LISPRO 100 UNITS/ML SUBCUT SCH ×3 (05:44→17:00)
[2023-05-12] MEDS: BLOOD SUGAR DIAGNOSTIC STRIP TEST SCH ×3 (05:44→16:30)
[2023-05-12] MEDS: CLONIDINE 0.1MG TABLET PO PRN (07:07)
[2023-05-12] MEDS ORDERED: AMLODIPINE 5MG TABLET PO SCH (09:00)
[2023-05-12] MEDS: THIAMINE HCL 100MG TABLET PO SCH (09:00)
[2023-05-12] MEDS: ZINC SULFATE 220 MG ( 50 ) CAPSULE PO SCH (09:42)
[2023-05-12] MEDS: ASCORBIC ACID 500 MG TABLET PO SCH (09:42)
[2023-05-12] MEDS: LEVETIRACETAM 500MG TABLET PO SCH (09:42)
[2023-05-12] MEDS: FOLIC ACID/VITAMIN B COMP W-C TABLET PO SCH (09:42)
[2023-05-12] MEDS: FAMOTIDINE 20MG TABLET PO SCH (09:42)
[2023-05-12] MEDS: METHYLPREDNISOLONE SOD SUCC 125MG/2ML (ACT-O-VIAL) IV SCH ×2 (12:26→18:27)
[2023-05-12] MEDS ORDERED: P20 MT ×2 (14:16→14:35)
[2023-05-12] MEDS ORDERED: FOLI-43 MT (14:17)
[2023-05-12] MEDS ORDERED: WARF4TAB71 MT (14:17)
[2023-05-12] MEDS ORDERED: HYDR200T80 MT (14:18)
[2023-05-12] MEDS ORDERED: DICL50TA9 PO (14:19)
[2023-05-12] MEDS ORDERED: OMEP40CA20 MT (14:20)
[2023-05-12] MEDS ORDERED: P20 PO ×2 (14:32→14:35)
[2023-05-12] MEDS ORDERED: WARFARIN SODIUM 4MG TABLET PO SCH (18:00)
[2023-05-14 13:07] LABS: ATYPICAL P-ANCA <1:20 titer (Neg:<1:20); CYTOPLASMIC C-ANCA <1:20 titer (Neg:<1:20); PERINUCLEAR P-ANCA <1:20 titer (Neg:<1:20)
== END 2023-05-12 18:51 | disposition home health service (06) | DRG 720 ==
LOC: ER 11:11 → MICUSO 13:48 → SUPCPDRO 14:01 → MICUSO 05-07 14:49
PROVIDERS: ADMIT Internal Medicine; ATTEND Internal Medicine
PROC: 5A1945Z Respiratory Ventilation, 24-96 Consecutive Hours (ICD-10-PCS; principal; 2023-05-06)
PROC: 0BH17EZ Insertion of Endotracheal Airway into Trachea, Via Natural or Artificial Opening (ICD-10-PCS; 2023-05-06)
DX: A41.9 Sepsis, unspecified organism (principal); G93.41 Metabolic encephalopathy; E43 Unspecified severe protein-calorie malnutrition; L89.103 Pressure ulcer of unspecified part of back, stage 3; L89.154 Pressure ulcer of sacral region, stage 4; J96.01 Acute respiratory failure with hypoxia; J96.02 Acute respiratory failure with hypercapnia; E87.20 Acidosis, unspecified; D68.61 Antiphospholipid syndrome; I27.81 Cor pulmonale (chronic); D63.8 Anemia in other chronic diseases classified elsewhere; J18.9 Pneumonia, unspecified organism; I11.0 Hypertensive heart disease with heart failure; L89.611 Pressure ulcer of right heel, stage 1; M32.9 Systemic lupus erythematosus, unspecified; J43.9 Emphysema, unspecified; Z20.822 Contact with and (suspected) exposure to COVID-19; N39.0 Urinary tract infection, site not specified; R73.9 Hyperglycemia, unspecified; R65.20 Severe sepsis without septic shock; M06.9 Rheumatoid arthritis, unspecified; K59.00 Constipation, unspecified; D72.810 Lymphocytopenia; I50.32 Chronic diastolic (congestive) heart failure; I77.6 Arteritis, unspecified; M19.90 Unspecified osteoarthritis, unspecified site; M79.2 Neuralgia and neuritis, unspecified; Z88.0 Allergy status to penicillin; Z88.2 Allergy status to sulfonamides; Z82.49 Family history of ischemic heart disease and other diseases of the circulatory system; Z74.01 Bed confinement status; Z68.1 Body mass index [BMI] 19.9 or less, adult
CPT/HCPCS: 31500; 36415; 36600; 71045; 74018; 80048; 80053; 80202; 80305; 81003; 82040; 82085; 82140; 82164; 82375; 82550; 82595; 82607; 82728; 82746; 82805; 82962; 83036; 83520; 83540; 83550; 83605; 83735; 83880; 84100; 84134; 84145; 84156; 84484; 85025; 85027; 86147; 86160; 86225; 86235; 86256; 86880; 87070; 87426; 87804; 92610; 93005; 93306; 94002; 94003; 94640; 99291; A6261; C9803; J0692; J1650; J1815; J1953; J2060; J2250; J2543; J2920; J2930; J3010; J3370; J3490; J7030; J7050; J7060